=== PATIENT | female | born 1945 | race Caucasian/White ===

== ENCOUNTER 2016-06-20 12:21 | Inpatient (IN) ==
[2016-06-20] MEDS ORDERED: methylPREDNISolone SOD SUC 125 MG/2 ML VIAL IV STA (12:35)
[2016-06-20] MEDS ORDERED: SODIUM CHLORIDE 0.9% 500 ML IV STA (12:35)
[2016-06-20] MEDS ORDERED: PIPERACILLIN/TAZOBACTAM 3,375 MG in SODIUM CHLORIDE 0.9% 100 ML IV STA ×2 (12:35→14:48)
[2016-06-20] MEDS ORDERED: methylPREDNISolone SOD SUC 125 MG/2 ML VIAL ONE (12:42)
[2016-06-20] MEDS ORDERED: PIPERACILLIN/TAZOBACTAM 3,375 MG VIAL IV ONE ×2 (12:42→12:58)
--- NOTE | 2016-06-20 12:42 | Emergency Department Note ---
IGonzalez Meredith, am scribing for, and in the presence of, Aj Hsu MD 12: 37. Aracelis Mathew James D, MD, personally performed the services described in this documentation, ascribed by Ashley Roth in my presence, and it is both accurate and complete 241 . Arrival - Arrival Chief Complaint: Shortness of Breath Stated Complaint: sob ED Nursing Triage Note: Pt states that she has been having SOB onset x 1 week with worsening today - pt family states that she has been out of her inhaler x 4 -5 days - pt was given samples and her insurance would not cover the meds - pt family has been in contact with home health trying to get med that her insurance will pay for Mode of Arrival: Wheelchair Limitations: No Limitations Source: Patient, Family, Old Records Reviewed, RN Notes Reviewed Time Seen by Provider: 06/20/16 12:32 - History of Present Illness HPI Narrative: Pt is a 70 y/o white female reporting to the ED with c/o shortness of breath of breath for the past week which worsened today. Family states pt has been out of her inhaler for 4-5 days because her insurance will not pay for it. Pt confirms a dry cough. She smoker 1 ppd. Pt has a history of HTN, anxiety, depression, substance abuse, TIA, HLD, thyroid disorder, fibromyalgia, asthma, COPD, hemorrhoids, GERD, diverticulitis, DDD, breast cancer, and cervical cancer. Onset (ago): week(s) Date of Last Menstrual Period: hyster Allergies/Adverse Reactions: Allergies Allergy/AdvReac Type Severity Reaction Status Date / Time tramadol [From Ultram] Allergy RASH Verified 12/21/14 15:27 Home Medications: Home Medications Medication Instructions Recorded Confirmed Type Albuterol Sulfate [Albuterol 2 puff INH Q6H PRN 03/17/15 06/20/16 History Inhaler] Fluticasone 50 Mcg Nasal [place] 2 spray BOTH NARES DAILY PRN 03/17/15 06/20/16 History [Flonase Nasal [place]] amLODIPine [Norvasc] 10 mg PO QAM 03/17/15 06/20/16 History HYDROcodone/ACETAMIN 5-325 [[place] 1 tablet PO Q8HR PRN #20 tablet 03/22/1506/20 Rx 5-325] Lisinopril [Prinivil] 10 mg PO QAM 03/22/15 06/20/16 History Albuterol Sulfate [Proair HFA] 2 puff INH Q6H PRN 06/20/16 06/20/16 History Divalproex Sodium [Divalproex 500 mg PO BID 06/20/16 06/20/16 History Sodium ER] Levothyroxine Sodium 150 mcg PO QAM 06/20/16 06/20/16 History Niacin ER [Niaspan] 500 mg PO QAM 06/20/16 06/20/16 History OLANZapine [Olanzapine] 10 mg PO BEDTIME 06/20/16 06/20/16 History Risperidone Microspheres 25 mg IM Q14D 06/20/16 06/20/16 History [Risperdal Consta] Sertraline [Zoloft] 50 mg PO QAM 06/20/16 06/20/16 History Tizanidine HCl [Tizanidine HCl] 4 mg PO BID 06/20/16 06/20/16 History Review of System - Review of System 12 point system: reviewed and no additional remarkable complaints except as stated - Review of System Respiratory: Present: as per HPI, cough, other (SOB) Medical,Surgical,& Family Hx - Medical History Cardio: History of: Hypertension, Cardiovascular Problems Psychological: History of: Anxiety Disorders, Behavior Problems (verbal aggression aeb using profanity towards children and threatening beha), Depression, Psychiatric/Substance Abuse Tx, Psychiatric Problems (depressed mood aeb irritability, sleep disturbance, loss of energy, social) No history of: Violent Behavior Neurology: History of: TIA Endocrine: History of: Dyslipidemia, Thyroid Disorder Rheumatology: History of;: Fibromyalgia Respiratory: History of: Asthma, Bronchitis, COPD, Pneumonia, Respiratory Problems No history of: Obstructive Sleep Apnea, Lung Cancer Gastrointestinal: History of: Diverticulitis/ Diverticulosis, GERD, Hemorrhoids , Polyps, GI Problems Musculoskeletal: History of: Back/Neck Problems (chronic back pain), Degenerative Disk Disease, Musculoskeletal Problems Reproductive: History of: Breast Cancer, Reproductive Cancer (cervical cancer) - Surgical History Abdominal Surgeries: Surgical HX of: Abdominal Surgery, Cholecystectomy Reproductive Surgeries: Surgical HX of;: Breast Surgery, Section, Hysterectomy Orthopedic Surgeries: Surgical HX of;: Orthopedic Surgery (back surgery) - Family History Family History: Reports;: Family Cancer, Family Heart Disease, Family Hypertension - Social History Smoking Status: Current every day smoker (1 pack per day smoker) Have you smoked in the last 12 months: Yes Time spent discussing smoking cessation with patient: 3 to 10 minutes Frequency of Alcohol Use: None Type of Drug Use: None Exam Physical Examination: GENERAL: This is a well-nourished, well-developed white female in no apparent distress. VITAL SIGNS: Temperature: 98.0, Pulse: 103, Respirations: 26, Blood pressure: 149/85, O2 Saturation: 82 HEENT: Head is normocephalic and atraumatic. Pupils are equally round and reactive to light. Extraocular movement are intact. Oropharynx is benign with moist mucous membranes. NECK: Neck is soft and supple without tenderness. There are no masses. There is no lymphadenopathy. LUNGS: Wheezing in all lung imreles. Prolonged expiratory phase. Accessory muscle use. Chest rises symmetrically. There is no chest wall tenderness. CV: Heart is tachycardic and regular rhythm without murmurs, rubs, or gallops. ABDOMEN: Abdomen is soft, non-tender to palpation. There are no abnormal masses palpated. There is no organomegaly. Bowel sounds are present and active. SKIN: Skin is warm and dry. No rash. EXTREMITIES: Patient has full range of motion without tenderness. There is no pedal edema. NEUROLOGIC: Awake, alert, and oriented x4. Cranial nerves II through XII are grossly intact. There are no motorsensory deficits. PSYCHIATRIC: Normal affect. Normal mood. Vital Signs: Vital Signs Temperature 98 F 06/20/16 12:26 Pulse Rate 79 06/20/16 13:01 Respiratory Rate 39 H 06/20/16 13:01 Blood Pressure 159/81 06/20/16 13:00 O2 Sat by Pulse Oximetry 100 06/20/16 13:01 Course - Consultations Consultation #1: Discussed with hospitalist. Patient will be admitted to their service. Time: 13:25 Procedures - ABG Interpretation ABG Interpretation 1 Interpretation: metabolic acidosis - Intubation Time out performed: Yes sedative: Etomidate Mg Given: 20 paralytic: Vecuronium Mg Given: 10 Laryngoscope: fiber optic video scope ET Tube Size: 7.5 ET Tube Uncuffed: No Tube Secured Depth (cm): 22 Tube Secured Location: lips Tube Placement Confirmation: visualized tube passing through cords, equal breath sounds bilaterally, no breath sounds over epigastrium, confirmation detector color change Patient Tolerated Procedure: well Intubation Complications: none Results - Labs CBC & BMP: 06/20/16 12:35 06/20/16 12:34 Lab Results: I have reviewed the patients labs Labs: Laboratory Tests 06/20/16 12:35 WBC 14.0 H RBC 5.10 Hgb 15.2 Hct 44.6 Plt Count 359 Neut % (Auto) 82.9 H Lymph % (Auto) 8.0 L Neut # (Auto) 11.6 H Lymph # (Auto) 1.1 L [place] # (Auto) 1.2 H Laboratory Tests 06/20/16 12:55 ABG pH 7.210 L D ABG pCO2 87.6 H* ABG pO2 189.0 H ABG HCO3 27.1 H ABG Total CO2 31.3 H ABG O2 Saturation 98.8 ABG Base Excess 3.0 H Laboratory Tests 06/20/16 12:35 INR 1.0 PT Patient/Control Mix 10.6 Circ Anticoag PTT 25.9 - EKG EKG results: interpreted by ERMD - Impressions EKG: Normal sinus rhythm with a rate of 90, occasional supraventricular premature complexes, nonspecific ST-T wave changes, normal axis. - Diagnostic Findings Procedure: Chest x-ray: image reviewed by me, report reviewed by me (No evidence of acute pathology. Chest x-ray #2 following intubation shows that the endotracheal tube is in good position above the dorota but will be pulled back 2 cm. The nasogastric tube is present in stomach.) Critical Care Time Critical Care Time: Yes Total Critical Care Time: 60 Attestation: Patient was given hour-long nebulization, IV fluids, IV antibiotics, steroids. The patient had progressively worsening respiratory status and was intubated. Initial vent management orders were written. Disposition Clinical Impression: COPD with exacerbation, Acute bronchitis, Nicotine addiction, Acute and chronic respiratory failure, Acute and chronic respiratory failure Case discussed with: patient, patient's family Disposition: Still a Patient Condition: Critical Time of Disposition: 14:37
[2016-06-20] MEDS ORDERED: ALBUTEROL 2.5 MG/3 ML NEB RESP TX SCH (13:00)
[2016-06-20 13:02] LABS: Basophils % 0.3 % (0.0-0.8); Hematocrit 44.6 VOL% (35.7-47.0); Hemoglobin 15.2 GM/DL (12.0-16.0); Immature Granulocytes % 0.6 %; Immature Granulocytes Absolute 0.09 #; Lymphocytes # 1.1 10*3/uL (1.4-4.0); Mean Corpuscular HGB Conc 34.1 GM/DL (32-36); Mean Corpuscular Hemoglobin 30 PG (27-34); Mean Corpuscular Volume 87.5 FL (87-102); Mean Platelet Volume 10.1 FL (9.6-12.0); Monocytes # 1.2 10*3/uL (0.11-0.8); Monocytes % 8.2 % (1.7-12.7); Neutrophils # 11.6 10*3/uL (1.4-7.4); Neutrophils % 82.9 % (38.7-73.9); Platelet Count 359 T/CUMM (130-400); Red Cell Distribution Width 14.1 % (9.3-17.3)
[2016-06-20 13:04] LABS: ABG HCO3 27.1 MMOL/L (20-26); ABG Oxygen Saturation 98.8 % (95-100); ABG TCO2 31.3 MMOL/L (23-27)
[2016-06-20 13:08] LABS: ABG PCO2 87.6 MM HG (35-48)
[2016-06-20 13:08] LABS: PT Patient Result 10.6 SECS; Partial Thromboplastin Time 25.9 SECS (0-40)
--- NOTE | 2016-06-20 13:10 | XRay Report ---
XR chest 1V portable Indication: Shortness of breath Comparison: None. Technique: Portable AP chest was performed. Findings: Heart size, mediastinal contour, and hilar structures demonstrate no evidence of acute pathology. Lungs are clear. Bones and soft tissues demonstrate no evidence of acute pathology. Impression: 1. No evidence of acute pathology. 06/20/2016 1:07 PM PROCEDURE INTERPRETED AT [facility] DEPARTMENT OF RADIOLOGY Final Report Signed by: Dr. Padilla Calderon
--- NOTE | 2016-06-20 13:31 | EKG Report ---
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
[2016-06-20 13:39] LABS: Albumin 4.3 G/DL (3.4-5.0); Bilirubin,Total 0.4 MG/DL (0.2-1.0); Calcium 9.6 MG/DL (8.5-10.1); Magnesium 2.1 MG/DL (1.8-2.4); Osmolality,Calculated 260.1 MOS/KG (273-304); Total Protein 7.7 G/DL (6.4-8.3); Troponin I Only 0.021 NG/ML (0.00-0.045)
--- NOTE | 2016-06-20 13:53 | Hospitalist History & Physical ---
Assessment and Plan (1) Acute on chronic respiratory failure Status: Acute Assessment and plan: Given the extensive pulmonary history and current respiratory status, the client will be admitted to the critical care setting for the continuation of care. We will continue corticosteriods, goetz culture, continue empiric antibiotics,and start PPI's, and VTE. We will consult pulmonary to assist with the management of this patient. Family at bedside; spoke with them in great detail regarding the patient's current status the possibility of she being placed on mechanical ventilation if her status fails to improve. Current Visit: Yes (2) Hyponatremia Status: Resolved Assessment and plan: Gross hyponatremia noted at the time of admission; Sodium-123. Will slowly replace sodium accordingly and recheck serial sodium levels every 6 hours. Current Visit: No (3) Compensated respiratory acidosis Status: Acute Assessment and plan: May start bi-pap if respiratory status continues to decline. Current Visit: Yes History of Present Illness Chief complaint: shortness of breath History of present illness: This is a poor, unfortunate 70 year-old elderly female that presented to the ED this afternoon with a chief compliant of shortness of breath. She has a rather impressive medical history positive for COPD, [place], depression,nicotine abuse, and hypothyroidism. Apparently, she was being transported to a doctor's appointment when her daughter noticed that she was having difficulty breathing. The daughter also reports continual use of tobacco products despite the know diagnosis of COPD. She also reports that the patient "ran out" of her inhaler about "2 weeks" ago and has not obtained another one. She was promptly evaluated by the ED physician and was started on a prolonged nebulizer treatment in which she failed to improve. She was subsequently intubated for airway protection. She will be admitted to ICU for continuation of care. Home Medications Medication Instructions Recorded Confirmed Type Albuterol Sulfate [Albuterol 2 puff INH Q6H PRN 03/17/15 06/20/16 History Inhaler] Fluticasone 50 Mcg Nasal [place] 2 spray BOTH NARES DAILY PRN 03/17/15 06/20/16 History [Flonase Nasal [place]] amLODIPine [Norvasc] 10 mg PO QAM 03/17/15 06/20/16 History HYDROcodone/ACETAMIN 5-325 [[place] 1 tablet PO Q8HR PRN #20 tablet 03/22/1506/20 Rx 5-325] Lisinopril [Prinivil] 10 mg PO QAM 03/22/15 06/20/16 History Albuterol Sulfate [Proair HFA] 2 puff INH Q6H PRN 06/20/16 06/20/16 History Divalproex Sodium [Divalproex 500 mg PO BID 06/20/16 06/20/16 History Sodium ER] Levothyroxine Sodium 150 mcg PO QAM 06/20/16 06/20/16 History Niacin ER [Niaspan] 500 mg PO QAM 06/20/16 06/20/16 History OLANZapine [Olanzapine] 10 mg PO BEDTIME 06/20/16 06/20/16 History Risperidone Microspheres 25 mg IM Q14D 06/20/16 06/20/16 History [Risperdal Consta] Sertraline [Zoloft] 50 mg PO QAM 06/20/16 06/20/16 History Tizanidine HCl [Tizanidine HCl] 4 mg PO BID 06/20/16 06/20/16 History Allergies Allergy/AdvReac Type Severity Reaction Status Date / Time tramadol [From Ultram] Allergy RASH Verified 12/21/14 15:27 Medical,Surgical,& Family Hx - Medical History Cardio: History of: Hypertension, Cardiovascular Problems Psychological: History of: Anxiety Disorders, Behavior Problems (verbal aggression aeb using profanity towards children and threatening beha), Depression, Psychiatric/Substance Abuse Tx, Psychiatric Problems (depressed mood aeb irritability, sleep disturbance, loss of energy, social) No history of: Violent Behavior Neurology: History of: TIA Endocrine: History of: Dyslipidemia, Thyroid Disorder Rheumatology: History of;: Fibromyalgia Respiratory: History of: Asthma, Bronchitis, COPD, Pneumonia, Respiratory Problems No history of: Obstructive Sleep Apnea, Lung Cancer Gastrointestinal: History of: Diverticulitis/ Diverticulosis, GERD, Hemorrhoids , Polyps, GI Problems Musculoskeletal: History of: Back/Neck Problems (chronic back pain), Degenerative Disk Disease, Musculoskeletal Problems Reproductive: History of: Breast Cancer, Reproductive Cancer (cervical cancer) - Surgical History Abdominal Surgeries: Surgical HX of: Abdominal Surgery, Cholecystectomy Reproductive Surgeries: Surgical HX of;: Breast Surgery, Section, Hysterectomy Orthopedic Surgeries: Surgical HX of;: Orthopedic Surgery (back surgery) - Family History Family History: Reports;: Family Cancer, Family Heart Disease, Family Hypertension - Social History Smoking Status: Current every day smoker (1 pack per day smoker) Frequency of Alcohol Use: None Type of Drug Use: None Marital Status: Single Lives With:: Alone Functional capacity: independent ambulation ROS unobtainable: other (unable to obtain due to respiratory distress) Exam - Constitutional Vitals: Period Temp Pulse Resp BP Sys/Martini Pulse Ox Last 24 Hr 98 F 73-103 18-39 149-153/74-85 82-100 General appearance: severe distress, cachectic, disheveled - Head Head exam: Present: normal inspection, normocephalic, atraumatic - Eye Eye exam: Present: EOMI Pupils: Present: JHONNY, normal accommodation - ENT ENT exam: Present: normal exam - Neck Neck exam: Present: normal inspection. Absent: lymphadenopathy, tenderness, thyromegaly - Respiratory Respiratory exam: Present: accessory muscle use, wheezes - Cardiovascular Cardiovascular exam: Present: tachycardia. Absent: carotid bruit, diastolic murmur, gallop, JVD, rubs, systolic murmur - GI/Abdominal GI/Abdominal exam: Present: normal bowel sounds, soft. Absent: firm, mass - Extremities Exam Extremities exam: Present: normal inspection - Back Exam Back exam: Present: normal inspection - Neurological Exam Neurological exam: Present: altered - Skin Skin exam: Present: dry, pallor Results - Labs CBC & BMP: 06/20/16 12:35 06/20/16 12:34 Lab Results: I have reviewed the past 24 hour labs
[2016-06-20] MEDS ORDERED: VECURONIUM 10 MG VIAL IV ONE (14:11)
[2016-06-20] MEDS ORDERED: ETOMIDATE 20 MG/10 ML VIAL IV ONE ×2 (14:11→14:22)
[2016-06-20] MEDS ORDERED: VECURONIUM 10 MG VIAL IV STA (14:27)
[2016-06-20] MEDS ORDERED: ALBUTEROL 2.5 MG/3 ML NEB RESP TX PRN (14:33)
[2016-06-20] MEDS ORDERED: GLUCAGON 1 MG VIAL IM PRN (14:41)
[2016-06-20] MEDS ORDERED: DEXTROSE 50% 25 GM/50 ML VIAL IV PRN (14:41)
--- NOTE | 2016-06-20 14:44 | XRay Report ---
XR chest 1V portable Indication: Intubation Comparison: Chest x-ray 06/20/2016 Technique: Portable AP chest was performed. Findings: Endotracheal tube is in place which terminates 2 to 3 cm above the dorota. NG tube is present which terminates within the gastric fundus. Prior cholecystectomy is demonstrated. Lung parenchyma demonstrates little change from comparison study. The cardiomediastinal silhouette is stable. Bones and soft tissues appear stable. Impression: 1. No adverse interval change in the chest status post intubation and placement of NG tube. 06/20/2016 2:41 PM PROCEDURE INTERPRETED AT [facility] DEPARTMENT OF RADIOLOGY Final Report Signed by: Dr. Padilla Calderon
[2016-06-20] MEDS ORDERED: PROPOFOL 1,000 MG/100 ML BOTTLE IV ONE (14:47)
[2016-06-20 15:09] LABS: ABG Base Excess 3.4 MMOL/L (-2.5-2.5); ABG HCO3 27.5 MMOL/L (20-26); ABG PCO2 48.5 MM HG (35-48); ABG TCO2 25.6 MMOL/L (23-27)
[2016-06-20] MEDS: PROPOFOL 1,000 MG/100 ML BOTTLE IV SCH ×2 (15:14→23:55)
[2016-06-20] MEDS: SODIUM CHLORIDE 0.9% 1,000 ML IV SCH (15:14)
[2016-06-20] MEDS ORDERED: ALBUTEROL/IPRATROPIUM 3 ML NEB RESP TX PRN (15:28)
[2016-06-20] MEDS: PANTOPRAZOLE 40 MG VIAL IV SCH (15:52)
[2016-06-20] MEDS ORDERED: AMINOPHYLLINE 250 MG in SODIUM CHLORIDE 0.9% 100 ML IV ONE (17:43)
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
[2016-06-20] MEDS: ENOXAPARIN 40 MG/0.4 ML SYRINGE SUBCUT SCH (18:24)
[2016-06-20] MEDS: LEVOFLOXACIN INJ 250 MG in PREMIX 1 EACH IV SCH (18:24)
--- NOTE | 2016-06-20 18:34 | Ultrasound Report ---
US venous doppler LE BI Indication: Possible DVT, SOB, respiratory distress. Comparison: None. Technique: Grayscale, spectral, and color Doppler interrogation of the bilateral lower extremity veins was performed. Augmentation and compression was performed. Findings: Grayscale, color Doppler, and pulsed Doppler evaluation of the veins of the bilateral lower extremity demonstrate no evidence of deep venous thrombosis. IMPRESSION: No evidence of deep venous thrombosis in the bilateral lower extremity. PROCEDURE INTERPRETED AT [facility] DEPARTMENT OF RADIOLOGY Final Report Signed by: Dr Salazar Kwok
[2016-06-20 19:53] LABS: Osmolality,Calculated 268.7 MOS/KG (273-304); Potassium 3.9 MMOL/L (3.5-5.1)
[2016-06-20] MEDS: PIPERACILLIN/TAZOBACTAM 3,375 MG in SODIUM CHLORIDE 0.9% 100 ML IV SCH (20:06)
[2016-06-20] MEDS: methylPREDNISolone SOD SUC 40 MG/1 ML VIAL IV SCH (20:06)
[2016-06-20] MEDS ORDERED: DIVALPROEX ER 500 MG TABLET PO SCH (21:00)
[2016-06-20] MEDS: VALPROIC ACID 250 MG/5 ML UDCUP PO SCH (21:19)
[2016-06-20] MEDS: MONTELUKAST 10 MG TABLET PO SCH (21:19)
[2016-06-20] MEDS: OLANZapine 5 MG TABLET PO SCH (21:19)
[2016-06-20] MEDS: AMINOPHYLLINE 500 MG in SODIUM CHLORIDE 0.9% 480 ML IV SCH (22:29)
[2016-06-21 00:34] LABS: Basophils % 0.1 % (0.0-0.8); Immature Granulocytes % 0.4 %; Immature Granulocytes Absolute 0.03 #; Lymphocytes # 0.8 10*3/uL (1.4-4.0); Mean Corpuscular HGB Conc 34.2 GM/DL (32-36); Mean Corpuscular Hemoglobin 29 PG (27-34); Mean Corpuscular Volume 85.2 FL (87-102); Mean Platelet Volume 10.7 FL (9.6-12.0); Monocytes # 0.5 10*3/uL (0.11-0.8); Monocytes % 6.5 % (1.7-12.7); Neutrophils # 6.9 10*3/uL (1.4-7.4); Platelet Count 198 T/CUMM (130-400); Red Blood Count 4.46 MC/CUMM (3.8-5.5); Red Cell Distribution Width 13.9 % (9.3-17.3); White Blood Count 8.3 T/CUMM (4-12)
[2016-06-21 00:49] LABS: Calcium 8.3 MG/DL (8.5-10.1); Osmolality,Calculated 277.8 MOS/KG (273-304); Potassium 3.5 MMOL/L (3.5-5.1)
[2016-06-21 03:41] LABS: ABG Base Excess 6.3 MMOL/L (-2.5-2.5); ABG HCO3 29.4 MMOL/L (20-26); ABG Oxygen Saturation 99.1 % (95-100); ABG PCO2 37.2 MM HG (35-48); ABG PH 7.516 (7.35-7.45); ABG PO2 197.3 MM HG (80-95); ABG TCO2 30.6 MMOL/L (23-27); Allen Test Positive; Pt O2 Delivery Device Ventilator
[2016-06-21 04:17] LABS: Alanine Aminotransferase 14 U/L (13-56); Albumin 3.1 G/DL (3.4-5.0); Alkaline Phosphatase 44 U/L (45-117); Aspartate Amino Transferase 12 U/L (0-37); Bilirubin,Total < 0.39 MG/DL (0.2-1.0); Blood Urea Nitrogen 21 MG/DL (7-18); Calcium 8.6 MG/DL (8.5-10.1); Cholesterol 167 MG/DL (50-200); Glucose 113 MG/DL (74-106); HDL Cholesterol 84 MG/DL (40-60); Magnesium 1.8 MG/DL (1.8-2.4); Osmolality,Calculated 271.2 MOS/KG (273-304); Potassium 3.4 MMOL/L (3.5-5.1); Risk Ratio 1.99; Sodium 134 MMOL/L (136-145); Total Protein 5.6 G/DL (6.4-8.3); Triglycerides 93 MG/DL (2-150); Troponin I Only < 0.015 NG/ML (0.00-0.045); VLDL CHOLESTEROL 18.6 MG/DL
[2016-06-21 04:37] LABS: Calcium 8.6 MG/DL (8.5-10.1); Osmolality,Calculated 269.4 MOS/KG (273-304); Potassium 3.5 MMOL/L (3.5-5.1)
[2016-06-21] MEDS: methylPREDNISolone SOD SUC 40 MG/1 ML VIAL IV SCH ×3 (04:59→20:10)
[2016-06-21] MEDS: PIPERACILLIN/TAZOBACTAM 3,375 MG in SODIUM CHLORIDE 0.9% 100 ML IV SCH ×3 (05:00→20:10)
[2016-06-21] MEDS: SODIUM CHLORIDE 0.9% 1,000 ML IV SCH ×2 (05:08→21:51)
[2016-06-21 07:42] LABS: Calcium 8.5 MG/DL (8.5-10.1); Osmolality,Calculated 276.8 MOS/KG (273-304); Potassium 3.6 MMOL/L (3.5-5.1)
--- NOTE | 2016-06-21 08:03 | XRay Report ---
Referring Physician: DAVID Powell Exam: XR chest 1V portable Date: June 21, 2016 at 3:17 AM Reason: Shortness of breath Comparison: Chest one view portable June 20, 2016 Findings: An endotracheal tube and feeding tube are again in place. The cardiac silhouette is normal in size. Emphysema is suspected, and there is minimal atelectasis or scarring at the lung bases. No pneumothorax or pleural effusion is identified. No acute osseous process is seen. Impression: There has been no significant change. PROCEDURE INTERPRETED AT [facility] DEPARTMENT OF RADIOLOGY Final Report Signed by: Dr. Roger Arriola
[2016-06-21] MEDS: amLODIPine 10 MG TABLET PO SCH (08:11)
[2016-06-21] MEDS: MONTELUKAST 10 MG TABLET PO SCH ×2 (08:12→21:40)
[2016-06-21] MEDS: VALPROIC ACID 250 MG/5 ML UDCUP PO SCH ×2 (08:12→21:40)
[2016-06-21] MEDS: LEVOTHYROXINE 100 MCG VIAL IV SCH (08:29)
[2016-06-21] MEDS: PROPOFOL 1,000 MG/100 ML BOTTLE IV SCH ×2 (08:38→21:49)
--- NOTE | 2016-06-21 09:23 | Pulmonology Progress Note ---
Pulmonary - PN: Subj Interval history: This is a 70-year-old white female. I saw her in pulmonary consultation 2016. My impressions were 1. Acute respiratory failure requiring intubation mechanical ventilation 2. Severe COPD with acute exacerbation including infection, sputum retention and wheezing 3. Probable bilateral lower lung pneumonia 4. Significant tobacco abuse 5. Hypothyroid 6. Hyponatremia. 7. See past history 06/21/2016. Today's chest x-ray is better. Heart size is normal. Pulmonary arteries appear to be slightly enlarged. No hilar adenopathy. Mediastinum is normal. Endotracheal tube is in good position. The right lower lung and left lower lung infiltrates are improved. Also on chest exam she is much better today she has a lot less wheezing a lot less congestion. This patient is a chronic smoker with a long history of chronic sputum production and I suspect based on her findings and her presentation has good bit of retained secretions. Last night I discussed fiberoptic bronchoscopy with the family and they were agreeable. I will plan to bronchoscope her tomorrow if she can maintain her improvement so far no positive cultures. Patient's on IV Aminophyllin and her level is 5.4 and she is getting no response at this level so I will not increase the dosage. Potassium is low and I started her on potassium replacement protocol. Creatinine is 0.70 with a BUN of 23 natruretic peptide was 112 admit TSH was normal follow-up is elevated. Plan. 1. Deep venous thrombophlebitis prevention protocol 2. Proton pump inhibitor protocol 3. Mechanical ventilation weaning protocol 4. Physical therapy while on ventilator protocol 5. Doppler venograms of lower extremities 6. Daily chest x-ray, ABGs and lab 7. Sputum for Gram stain culture and sensitivity 8. Cold agglutinins. Reported 06/21/2016 as negative. 9. Legionella titer. 10. agree with steroids and Unasyn. Add Levaquin. 11. IV Aminophyllin. Daily theophylline level. 12. Singulair 10 mg daily 13. Fluids. 14. See orders 15. 06/21/2016. Potassium replacement protocol. Fiberoptic bronchoscopy in the morning. See my note above Exam (Progress Note) - Constitutional Vitals: Period Temp Pulse Resp BP Sys/Martini Pulse Ox Last 24 Hr 97.1 F-98.7 F 73-104 13-43 99-172/53-98 94-100 Results - Labs CBC & BMP: 06/21/16 00:12 06/21/16 07:05
--- NOTE | 2016-06-21 11:29 | Hospitalist Progress Note ---
Assessment and Plan (1) Acute on chronic respiratory failure Status: Acute Assessment and plan: 1)resp failure- stable on vent with improved ventilation and much better air movement than pre-intubation. Still with sig wheezes throughout. On antibiotics , nebs, steroids, aminophylline. Seemsneurologically appropriate so hopefully that won't be a barrier to extubation. She does have extensive psych history and her meds have been continued. 2)HTN- improved, on her home meds. 3)hyponatremia- improved with hydration and steroids. Her spot cortisol was 70 yesterday, after she had received solumedrol. TSH was normal. Urine osm inappropriately high on admission when serum osm low- consistent with SIADH. 4)nutrition- tube feeds to start today. Current Visit: Yes (2) Hypokalemia Status: Resolved Current Visit: No (3) COPD with exacerbation Status: Acute Current Visit: Yes (4) Nicotine addiction Status: Acute Current Visit: Yes Hospitalist: Subjective Interval history: Mrs Mcgill rested comfortably on the vent. She is cooperative and follows commands when sedation lightened. No events. Her exam is much improved from yesterday. Exam - Constitutional Vitals: Period Temp Pulse Resp BP Sys/Martini Pulse Ox Last 24 Hr 97.1 F-98.7 F 73-104 13-43 99-172/53-98 94-100 General appearance: normal weight, no acute distress (sedated) - Eye Eye exam: Present: EOMI. Absent: scleral icterus - Respiratory Respiratory exam: Present: wheezes (loud exp wheezes thorughout with much improved air movement compared to exam in ER yesterday) - Cardiovascular Cardiovascular exam: Present: regular rate and rhythm - GI/Abdominal GI/Abdominal exam: Present: normal bowel sounds, soft. Absent: tenderness - Extremities Exam Extremities exam: Absent: edema - Skin Skin exam: Present: warm, dry Results - Labs CBC & BMP: 06/21/16 00:12 06/21/16 07:05 Lab Results: I have reviewed the past 24 hour labs
[2016-06-21] MEDS: LISINOPRIL 10 MG TABLET PO SCH (11:37)
[2016-06-21 12:06] LABS: Calcium 8.4 MG/DL (8.5-10.1); Magnesium 1.9 MG/DL (1.8-2.4); Osmolality,Calculated 275.8 MOS/KG (273-304); Potassium 3.8 MMOL/L (3.5-5.1)
[2016-06-21] MEDS ORDERED: GLUCAGON 1 MG VIAL IM PRN (14:54)
[2016-06-21] MEDS ORDERED: DEXTROSE 50% 25 GM/50 ML VIAL IV PRN (14:54)
[2016-06-21] MEDS: PANTOPRAZOLE 40 MG VIAL IV SCH (15:47)
[2016-06-21] MEDS: INSULIN REGULAR 100 UNIT/ML SUBCUT SCH (17:49)
[2016-06-21] MEDS: ENOXAPARIN 40 MG/0.4 ML SYRINGE SUBCUT SCH (17:54)
[2016-06-21] MEDS: LEVOFLOXACIN INJ 250 MG in PREMIX 1 EACH IV SCH (17:55)
[2016-06-21] MEDS: OLANZapine 5 MG TABLET PO SCH (21:40)
[2016-06-22] MEDS: INSULIN REGULAR 100 UNIT/ML SUBCUT SCH ×5 (00:27→18:40)
[2016-06-22 02:56] LABS: Allen Test Positive; Pt O2 Delivery Device Ventilator
[2016-06-22 03:01] LABS: ABG Base Excess 2.7 MMOL/L (-2.5-2.5); ABG PCO2 31.3 MM HG (35-48); ABG PH 7.521 (7.35-7.45); ABG PO2 211.9 MM HG (80-95)
[2016-06-22] MEDS: methylPREDNISolone SOD SUC 40 MG/1 ML VIAL IV SCH ×3 (03:54→20:46)
[2016-06-22] MEDS: PIPERACILLIN/TAZOBACTAM 3,375 MG in SODIUM CHLORIDE 0.9% 100 ML IV SCH ×3 (03:56→20:46)
[2016-06-22 05:09] LABS: Basophils % 0.1 % (0.0-0.8); Hematocrit 34.8 VOL% (35.7-47.0); Immature Granulocytes % 0.5 %; Immature Granulocytes Absolute 0.05 #; Lymphocytes % 10.6 % (21.3-54.2); Mean Corpuscular HGB Conc 34.5 GM/DL (32-36); Mean Corpuscular Hemoglobin 30 PG (27-34); Mean Corpuscular Volume 85.7 FL (87-102); Mean Platelet Volume 10.7 FL (9.6-12.0); Monocytes # 1.3 10*3/uL (0.11-0.8); Monocytes % 14.5 % (1.7-12.7); Neutrophils # 6.8 10*3/uL (1.4-7.4); Neutrophils % 74.3 % (38.7-73.9); Platelet Count 264 T/CUMM (130-400); Red Blood Count 4.06 MC/CUMM (3.8-5.5); Red Cell Distribution Width 14.5 % (9.3-17.3); White Blood Count 9.2 T/CUMM (4-12)
[2016-06-22 05:19] LABS: PT Patient Result 11.1 SECS; Partial Thromboplastin Time 29.2 SECS (0-40)
[2016-06-22] MEDS: SODIUM CHLORIDE 0.9% 1,000 ML IV SCH ×4 (05:49→23:32)
[2016-06-22 06:02] LABS: Calcium 8.1 MG/DL (8.5-10.1); Osmolality,Calculated 289.1 MOS/KG (273-304); Potassium 3.4 MMOL/L (3.5-5.1)
[2016-06-22 06:06] LABS: Phosphorous 4.5 MG/DL (2.5-4.9); Prealbumin 16.7 MG/DL (20-40)
[2016-06-22] MEDS: LEVOTHYROXINE 100 MCG VIAL IV SCH (06:17)
--- NOTE | 2016-06-22 07:15 | XRay Report ---
Portable chest Date: 06/22/2016 Clinical history: Ventilator management Comparison: 06/21/2016 Technique: Portable AP sitting chest Findings: The heart is normal in size. The lungs remain overexpanded with decreased parenchymal findings. Stable supportive devices and mediastinum. No acute osseous findings. 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 Supportive devices remain in satisfactory position. PROCEDURE INTERPRETED AT [facility] DEPARTMENT OF RADIOLOGY Final Report Signed by: Dr. Nicole Phillips
[2016-06-22] MEDS: AMINOPHYLLINE 500 MG in SODIUM CHLORIDE 0.9% 480 ML IV SCH ×3 (07:47→18:36)
[2016-06-22] MEDS: PROPOFOL 1,000 MG/100 ML BOTTLE IV SCH ×2 (07:49→15:18)
[2016-06-22] MEDS ORDERED: POTASSIUM CHLORIDE 20 MEQ TABLET PO ONE (08:15)
--- NOTE | 2016-06-22 08:15 | Hospitalist Progress Note ---
Assessment and Plan (1) Acute on chronic respiratory failure Status: Acute Assessment and plan: 1)acute on chronic resp failure- this morning her exam is much better with no wheezing and good air movement. She is on levaquin, Decrease IV solumedrol tomorrow, cont nebs. Bronch this morning. 2)HTN- controlled 3)hyponatremia- resolved. 4)nutrition- tolerating tube feeds 5)hypokalemia- replace today and recheck in am. 6)psych- she has history of mental illness. I continued her olanzapine, holding her depot risperdal since we don't know when she got her last dose. calm on the vent at this point. some baseline dementia per her daughter. Current Visit: Yes (2) COPD with exacerbation Status: Acute Current Visit: Yes (3) Nicotine addiction Status: Acute Current Visit: Yes Hospitalist: Subjective Interval history: Mrs Mcgill has remained stable on vent overnight. She is going to have a bronch this morning per nursing report. She did CPAP yesterday for 2hour stretches. She continues to respond to voice and follow commands. Exam - Constitutional Vitals: Period Temp Pulse Resp BP Sys/Martini Pulse Ox Last 24 Hr 97.4 F-98.4 F 55-95 14-23 82-165/57-91 99-100 General appearance: normal weight, no acute distress - Head Head exam: Present: normocephalic, atraumatic - Eye Eye exam: Present: EOMI. Absent: scleral icterus - Respiratory Respiratory exam: Present: clear to auscultation bilaterally (no wheezing this morning, imroved air movement) - Cardiovascular Cardiovascular exam: Present: regular rate and rhythm - GI/Abdominal GI/Abdominal exam: Present: normal bowel sounds, soft. Absent: tenderness - Extremities Exam Extremities exam: Absent: edema Results - Labs CBC & BMP: 06/22/16 04:18 06/22/16 04:18 Lab Results: I have reviewed the past 24 hour labs
--- NOTE | 2016-06-22 09:07 | Event Note ---
In hospital diagnostic and therapeutic fiberoptic bronchoscopy with bilateral ( right upper lung, right middle lung, right lower lung, left upper lung and left lower lung) bronchial/alveolar lavage for cytology, Gram stain, bacterial cultures, AFB stains and culture, fungal stains and culture. This is a 70-year-old white female with COPD, acute respiratory failure requiring intubation mechanical ventilation and right lower lung pneumonia. She has retained secretions. Her cough is ineffective. For these reasons she is evaluated with fiberoptic bronchoscopy. Endotracheal tube is in good position. Distal trachea was normal this area was occluded by thick tenacious secretions. The dorota was sharp. Right mainstem bronchus was occluded with thick tenacious secretions. These extended into every segment of the right upper lung, the right middle lung in the right lower lung. The suction channel had to be repeated pedal he cleaned in order to clear the secretions. Lavages from the bronchi and from the alveoli were obtained and specimens were submitted. There were areas of underlying erosive friable bronchitis and the large and small airways showed a good bit of collapsibility compatible with COPD. The left mainstem bronchus was occluded with thick tenacious secretions which occluded the bronchoscope which required multiple channel cleanings. The secretions extending into every segment of the left upper lung and left lower lung. These were removed from the bronchi and the patient had alveolar lavages. The specimens were submitted for for additional studies. See above. There were areas of eroded friable bronchitis. The collection apparatus contain a good bit of thick tenacious secretions and there were multiple yellow bronchial casts. The findings were discussed with the patient's daughter. Patient tolerated procedure well Impression. 1. Acute respiratory failure requiring intubation mechanical ventilation. 2. Ineffective cough 3. Retained secretions 4. COPD with collapsible large and small airways 5. Bilateral erosive friable bronchitis 6. Acute right lower lung pneumonia. Most likely bacterial. 7. See above Plan. 1. Discuss with daughter 2. Follow-up chest x-ray 3. Check bronchoscopy
[2016-06-22] MEDS: VALPROIC ACID 250 MG/5 ML UDCUP PO SCH ×2 (10:16→20:46)
[2016-06-22] MEDS: amLODIPine 10 MG TABLET PO SCH (10:17)
[2016-06-22] MEDS: LISINOPRIL 10 MG TABLET PO SCH (10:17)
[2016-06-22] MEDS: MONTELUKAST 10 MG TABLET PO SCH ×2 (10:18→20:46)
--- NOTE | 2016-06-22 10:40 | Pulmonology Progress Note ---
Pulmonary - PN: Subj Interval history: This is a 70-year-old white female. I saw her in pulmonary consultation 2016. My impressions were 1. Acute respiratory failure requiring intubation mechanical ventilation 2. Severe COPD with acute exacerbation including infection, sputum retention and wheezing 3. Probable bilateral lower lung pneumonia 4. Significant tobacco abuse 5. Hypothyroid 6. Hyponatremia. 7. See past history 06/21/2016. Today's chest x-ray is better. Heart size is normal. Pulmonary arteries appear to be slightly enlarged. No hilar adenopathy. Mediastinum is normal. Endotracheal tube is in good position. The right lower lung and left lower lung infiltrates are improved. Also on chest exam she is much better today she has a lot less wheezing a lot less congestion. This patient is a chronic smoker with a long history of chronic sputum production and I suspect based on her findings and her presentation has good bit of retained secretions. Last night I discussed fiberoptic bronchoscopy with the family and they were agreeable. I will plan to bronchoscope her tomorrow if she can maintain her improvement so far no positive cultures. Patient's on IV Aminophyllin and her level is 5.4 and she is getting no response at this level so I will not increase the dosage. Potassium is low and I started her on potassium replacement protocol. Creatinine is 0.70 with a BUN of 23 natruretic peptide was 112 admit TSH was normal follow-up is elevated. 06/22/2016. This patient had a fiberoptic bronchoscopy earlier today. See the report. She was full of thick tenacious secretions that involved every lobe of her lungs. Sputum was so thick and tenacious required repeated withdrawal of the scope to clean the channels for suctioning. Chest x-ray shows a resolving right lower lung infiltrate. There are no positive cultures. ABGs are slowly improving. Potassium remains low at 3.4. CBC is stable. Theophylline level was 3.5. Patient's on stage III to weaning protocol. Findings and plans were discussed with the patient's daughter today. Dalton Dean nurse practitioner was present. Physical exam. Vital signs. See below Neurologic. Patient moves all fours. She can be aroused. Chest. Coarse large airway congestion. Bibasilar inspiratory squeaks. Heart. No gallop Abdomen. Nontender. Positive bowel sounds Extremities. Nothing to suggest deep venous thrombophlebitis Neck. Symmetrical. No masses. No meningismus. Lymphatics. No submandibular cervical supraclavicular or epitrochlear adenopathy. Arterial. Carotids are decreased. Upper extremity pulses are palpable. Lower extremity pulses are nonpalpable. No evidence of lower extremity ischemia Venous. Neck upper and lower extremities are normal except for mild chronic venous stasis changes over both lower extremities. The remainder of the exam is noncontributory Plan. 1. Deep venous thrombophlebitis prevention protocol 2. Proton pump inhibitor protocol 3. Mechanical ventilation weaning protocol 4. Physical therapy while on ventilator protocol 5. Doppler venograms of lower extremities 6. Daily chest x-ray, ABGs and lab 7. Sputum for Gram stain culture and sensitivity 8. Cold agglutinins. Reported 06/21/2016 as negative. 9. Legionella titer. 10. agree with steroids and Unasyn. Add Levaquin. 11. IV Aminophyllin. Daily theophylline level. 12. Singulair 10 mg daily 13. Fluids. 14. See orders 15. 06/21/2016. Potassium replacement protocol. Fiberoptic bronchoscopy in the morning. See my note above 16. 06/22/2016. Fiberoptic bronchoscopy. Check results. Stage II weaning protocol. Will need repeat fiberoptic bronchoscopy on 06/25/2016. Daughter is agreeable. Exam (Progress Note) - Constitutional Vitals: Period Temp Pulse Resp BP Sys/Martini Pulse Ox Last 24 Hr 97.4 F-98.4 F 55-101 14-23 82-151/57-102 99-100 Results - Labs CBC & BMP: 06/22/16 04:18 06/22/16 04:18
[2016-06-22] MEDS: PANTOPRAZOLE 40 MG VIAL IV SCH (15:17)
[2016-06-22] MEDS: LEVOFLOXACIN INJ 250 MG in PREMIX 1 EACH IV SCH (18:41)
[2016-06-22] MEDS: ENOXAPARIN 40 MG/0.4 ML SYRINGE SUBCUT SCH (18:41)
[2016-06-22] MEDS: OLANZapine 5 MG TABLET PO SCH (20:47)
[2016-06-23] MEDS: INSULIN REGULAR 100 UNIT/ML SUBCUT SCH ×4 (00:13→18:39)
[2016-06-23 03:36] LABS: ABG HCO3 24.4 MMOL/L (20-26); ABG Oxygen Saturation 98.6 % (95-100); ABG PCO2 33.1 MM HG (35-48); ABG PH 7.454 (7.35-7.45); ABG TCO2 20.2 MMOL/L (23-27)
[2016-06-23] MEDS: methylPREDNISolone SOD SUC 40 MG/1 ML VIAL IV SCH ×3 (04:33→20:42)
[2016-06-23] MEDS: PIPERACILLIN/TAZOBACTAM 3,375 MG in SODIUM CHLORIDE 0.9% 100 ML IV SCH ×3 (04:33→20:42)
[2016-06-23 05:25] LABS: Calcium 7.8 MG/DL (8.5-10.1); Potassium 4.7 MMOL/L (3.5-5.1)
[2016-06-23] MEDS: LEVOTHYROXINE 100 MCG VIAL IV SCH (06:29)
[2016-06-23] MEDS: SODIUM CHLORIDE 0.9% 1,000 ML IV SCH (06:29)
[2016-06-23] MEDS: PROPOFOL 1,000 MG/100 ML BOTTLE IV SCH ×3 (06:39→23:16)
--- NOTE | 2016-06-23 07:26 | Hospitalist Progress Note ---
Assessment and Plan - Time spent with patient Time spent with patient: Less than 30 minutes (1) Acute and chronic respiratory failure Status: Acute Assessment and plan: Patient remains sedated on a ventilator for acute and chronic respiratory failure. Pulmonary continues to manage and wane. She underwent diagnostic and therapeutic bronchoscopy yesterday by Dr. Love, please see his report. Current Visit: No (2) COPD (chronic obstructive pulmonary disease) Status: Acute Assessment and plan: Continuing ventilatory support, empiric antibiotic therapy, IV corticosteroids, nebulizer therapy Current Visit: No Qualifiers: COPD type: COPD with acute exacerbation Qualified Code(s): J44.1 - Chronic obstructive pulmonary disease with (acute) exacerbation (3) Hypothyroidism Status: Chronic Assessment and plan: Stable. Current Visit: No Hospitalist: Subjective Interval history: Patient remains sedated on a ventilator. No new issues overnight per nursing. Patient is tolerating tube feedings. She has a Telles catheter in place. Continuing to wean per pulmonary protocol. Exam - Constitutional Vitals: Period Temp Pulse Resp BP Sys/Martini Pulse Ox Last 24 Hr 96.7 F-98.1 F 50-101 11-26 109-158/66-102 96-100 General appearance: no acute distress - Head Head exam: Present: normocephalic, atraumatic - Eye Eye exam: Present: EOMI Pupils: Present: JHONNY - ENT ENT exam: Present: other (ETT and OGT tubes in place) - Neck Neck exam: Present: normal inspection - Respiratory Respiratory exam: Present: clear to auscultation bilaterally. Absent: rales, rhonchi, wheezes - Cardiovascular Cardiovascular exam: Present: regular rate and rhythm. Absent: tachycardia - GI/Abdominal GI/Abdominal exam: Present: normal bowel sounds, soft. Absent: distended, tenderness, rebound - Extremities Exam Extremities exam: Absent: calf tenderness, edema - Neurological Exam Neurological exam: Present: other (Sedated on vent, withdraws extremities to tactile stimuli) - Skin Skin exam: Present: warm, dry. Absent: rash Results - Labs CBC & BMP: 06/22/16 04:18 06/23/16 04:25 Lab Results: I have reviewed the past 24 hour labs - Diagnostic Findings Procedure: Chest x-ray: report reviewed by me
--- NOTE | 2016-06-23 08:13 | Pulmonology Progress Note ---
Pulmonary - PN: Subj Interval history: This is a 70-year-old white female. I saw her in pulmonary consultation 2016. My impressions were 1. Acute respiratory failure requiring intubation mechanical ventilation 2. Severe COPD with acute exacerbation including infection, sputum retention and wheezing 3. Probable bilateral lower lung pneumonia 4. Significant tobacco abuse 5. Hypothyroid 6. Hyponatremia. 7. See past history 06/21/2016. Today's chest x-ray is better. Heart size is normal. Pulmonary arteries appear to be slightly enlarged. No hilar adenopathy. Mediastinum is normal. Endotracheal tube is in good position. The right lower lung and left lower lung infiltrates are improved. Also on chest exam she is much better today she has a lot less wheezing a lot less congestion. This patient is a chronic smoker with a long history of chronic sputum production and I suspect based on her findings and her presentation has good bit of retained secretions. Last night I discussed fiberoptic bronchoscopy with the family and they were agreeable. I will plan to bronchoscope her tomorrow if she can maintain her improvement so far no positive cultures. Patient's on IV Aminophyllin and her level is 5.4 and she is getting no response at this level so I will not increase the dosage. Potassium is low and I started her on potassium replacement protocol. Creatinine is 0.70 with a BUN of 23 natruretic peptide was 112 admit TSH was normal follow-up is elevated. 06/22/2016. This patient had a fiberoptic bronchoscopy earlier today. See the report. She was full of thick tenacious secretions that involved every lobe of her lungs. Sputum was so thick and tenacious required repeated withdrawal of the scope to clean the channels for suctioning. Chest x-ray shows a resolving right lower lung infiltrate. There are no positive cultures. ABGs are slowly improving. Potassium remains low at 3.4. CBC is stable. Theophylline level was 3.5. Patient's on stage III to weaning protocol. Findings and plans were discussed with the patient's daughter today. Dalton Dean nurse practitioner was present. 06/23/2016. This patient's chest sounds much better following a fiberoptic bronchoscopy done 06/22/2016. Chest x-ray shows small heart. Enlarged pulmonary arteries. Hyperinflated lungs. Small residual right lower lung infiltrate with some minor associated atelectasis and a tiny amount of atelectasis at the left lateral basilar segment. ABGs on FiO2 of 50% showed pH 7.45. PCO2 is 33, PO2 is 119 and bicarb is 24. Electrolytes are normal. Creatinine is dropped to 0.40 with a BUN of 30. Theophylline level is 11.4. There are no positive cultures. Physical exam. Vital signs. See below Neurologic. Patient moves all fours. She can be aroused and she appears more alert today. Chest. Coarse large airway congestion. Bibasilar inspiratory squeaks. Heart. No gallop Abdomen. Nontender. Positive bowel sounds Extremities. Nothing to suggest deep venous thrombophlebitis Neck. Symmetrical. No masses. No meningismus. Lymphatics. No submandibular cervical supraclavicular or epitrochlear adenopathy. Arterial. Carotids are decreased. Upper extremity pulses are palpable. Lower extremity pulses are nonpalpable. No evidence of lower extremity ischemia Venous. Neck upper and lower extremities are normal except for mild chronic venous stasis changes over both lower extremities. The remainder of the exam is noncontributory Plan. 1. Deep venous thrombophlebitis prevention protocol 2. Proton pump inhibitor protocol 3. Mechanical ventilation weaning protocol 4. Physical therapy while on ventilator protocol 5. Doppler venograms of lower extremities 6. Daily chest x-ray, ABGs and lab 7. Sputum for Gram stain culture and sensitivity 8. Cold agglutinins. Reported 06/21/2016 as negative. 9. Legionella titer. 10. agree with steroids and Unasyn. Add Levaquin. 11. IV Aminophyllin. Daily theophylline level. 12. Singulair 10 mg daily 13. Fluids. 14. See orders 15. 06/21/2016. Potassium replacement protocol. Fiberoptic bronchoscopy in the morning. See my note above 16. 06/22/2016. Fiberoptic bronchoscopy. Check results. Stage II weaning protocol. Will need repeat fiberoptic bronchoscopy on 06/25/2016. Daughter is agreeable. 17. 06/23/2016. Continue present therapy including present weaning protocol. Probable repeat fiberoptic bronchoscopy on 06/25/2016 Exam (Progress Note) - Constitutional Vitals: Period Temp Pulse Resp BP Sys/Martini Pulse Ox Last 24 Hr 96.7 F-98.1 F 55-101 11- 109-158/66-102 96-100 Results - Labs CBC & BMP: 06/22/16 04:18 06/23/16 04:25
[2016-06-23] MEDS: amLODIPine 10 MG TABLET PO SCH (08:57)
[2016-06-23] MEDS: VALPROIC ACID 250 MG/5 ML UDCUP PO SCH ×2 (08:57→20:42)
[2016-06-23] MEDS: MONTELUKAST 10 MG TABLET PO SCH ×2 (08:57→20:43)
[2016-06-23] MEDS: LISINOPRIL 10 MG TABLET PO SCH (08:58)
[2016-06-23] MEDS: NICOTINE 21 MG/24 HR PATCH TRANSDERM PRN (08:58)
[2016-06-23] MEDS ORDERED: INFLUENZA VIRUS VACCINE 0.5 ML SYRINGE IM ONE (09:00)
[2016-06-23] MEDS: SODIUM CHLORIDE 0.45% 1,000 ML IV SCH ×3 (09:00→23:51)
--- NOTE | 2016-06-23 10:12 | XRay Report ---
Single view the chest. Indication: Ventilated patient. Comparison: June 22, 2016. Heart is normal in size. The lung mireles are hyperexpanded suggestive of COPD. No consolidation, pneumothorax, or pleural effusion. An endotracheal tube and nasogastric tube remain in satisfactory position. Impression: No acute abnormality. PROCEDURE INTERPRETED AT [facility] DEPARTMENT OF RADIOLOGY Final Report Signed by: Dr. Renu Stack
[2016-06-23] MEDS: PANTOPRAZOLE 40 MG VIAL IV SCH (15:50)
[2016-06-23] MEDS: LEVOFLOXACIN INJ 250 MG in PREMIX 1 EACH IV SCH (18:48)
[2016-06-23] MEDS: ENOXAPARIN 40 MG/0.4 ML SYRINGE SUBCUT SCH (18:49)
[2016-06-23] MEDS: AMINOPHYLLINE 500 MG in SODIUM CHLORIDE 0.9% 480 ML IV SCH (18:49)
[2016-06-23] MEDS: OLANZapine 5 MG TABLET PO SCH (20:42)
[2016-06-24] MEDS: INSULIN REGULAR 100 UNIT/ML SUBCUT SCH ×4 (00:52→18:30)
[2016-06-24] MEDS: PIPERACILLIN/TAZOBACTAM 3,375 MG in SODIUM CHLORIDE 0.9% 100 ML IV SCH ×3 (04:17→20:42)
[2016-06-24] MEDS: methylPREDNISolone SOD SUC 40 MG/1 ML VIAL IV SCH ×3 (04:17→20:42)
[2016-06-24 04:53] LABS: Hematocrit 37.8 VOL% (35.7-47.0); Hemoglobin 12.8 GM/DL (12.0-16.0); Immature Granulocytes % 0.7 %; Immature Granulocytes Absolute 0.06 #; Lymphocytes # 1.2 10*3/uL (1.4-4.0); Lymphocytes % 15.2 % (21.3-54.2); Mean Corpuscular HGB Conc 33.9 GM/DL (32-36); Mean Corpuscular Hemoglobin 29 PG (27-34); Mean Corpuscular Volume 85.3 FL (87-102); Mean Platelet Volume 10.4 FL (9.6-12.0); Monocytes # 0.8 10*3/uL (0.11-0.8); Monocytes % 9.4 % (1.7-12.7); Neutrophils % 74.7 % (38.7-73.9); Platelet Count 271 T/CUMM (130-400); Red Blood Count 4.43 MC/CUMM (3.8-5.5); Red Cell Distribution Width 14.6 % (9.3-17.3)
[2016-06-24 04:59] LABS: ABG Base Excess 0.6 MMOL/L (-2.5-2.5); ABG HCO3 23.6 MMOL/L (20-26); ABG Oxygen Saturation 98.2 % (95-100); ABG PCO2 33.1 MM HG (35-48); ABG PH 7.471 (7.35-7.45); ABG PO2 121.7 MM HG (80-95); ABG TCO2 24.6 MMOL/L (23-27); Pt O2 Delivery Device Ventilator
[2016-06-24 05:25] LABS: Calcium 8.2 MG/DL (8.5-10.1); Osmolality,Calculated 288.1 MOS/KG (273-304); Potassium 4.7 MMOL/L (3.5-5.1)
[2016-06-24] MEDS: LEVOTHYROXINE 100 MCG VIAL IV SCH (06:22)
--- NOTE | 2016-06-24 07:24 | Hospitalist Progress Note ---
Assessment and Plan - Time spent with patient Time spent with patient: Less than 30 minutes (1) Acute and chronic respiratory failure Status: Acute Assessment and plan: Patient remains sedated on a ventilator for acute and chronic respiratory failure. Pulmonary continues to manage and wean. She underwent diagnostic and therapeutic bronchoscopy yesterday by Dr. Love, please see his report. 06/24/16: Pulmonary continues to follow and attempt to wean and extubate. Current Visit: No (2) COPD (chronic obstructive pulmonary disease) Status: Acute Assessment and plan: Continuing ventilatory support, empiric antibiotic therapy, IV corticosteroids, nebulizer therapy 06/24/16: Continuing ventilatory support with attempts to wean per pulmonary. Continue antibiotic therapy, corticosteroid therapy, O2 supplementation, nebulizer therapy. Current Visit: No Qualifiers: COPD type: COPD with acute exacerbation Qualified Code(s): J44.1 - Chronic obstructive pulmonary disease with (acute) exacerbation (3) Hypothyroidism Status: Chronic Assessment and plan: Stable. Current Visit: No Hospitalist: Subjective Interval history: Patient remains on ventilator for acute and chronic respiratory failure. This morning she is awake and does obey simple commands as she is less sedated this morning. She continues with orogastric enteral feedings and Telles catheter remains in place. Exam - Constitutional Vitals: Period Temp Pulse Resp BP Sys/Martini Pulse Ox Last 24 Hr 96.7 F-98.1 F 58-84 11-24 104-166/61-89 97-100 General appearance: no acute distress - Head Head exam: Present: normocephalic, atraumatic - Eye Eye exam: Present: EOMI Pupils: Present: JHONNY - ENT ENT exam: Present: normal exam - Neck Neck exam: Present: normal inspection - Respiratory Respiratory exam: Present: clear to auscultation bilaterally. Absent: rales, rhonchi, wheezes - Cardiovascular Cardiovascular exam: Present: regular rate and rhythm. Absent: tachycardia - GI/Abdominal GI/Abdominal exam: Present: normal bowel sounds, soft. Absent: mass, tenderness - Extremities Exam Extremities exam: Absent: calf tenderness, edema - Back Exam Back exam: Present: normal inspection - Neurological Exam Neurological exam: Present: alert, other (Moves all extremities and obeys simple commands) - Skin Skin exam: Present: warm, dry. Absent: erythema Results - Labs CBC & BMP: 06/24/16 04:28 06/24/16 04:28 Lab Results: I have reviewed the past 24 hour labs
[2016-06-24] MEDS: SODIUM CHLORIDE 0.45% 1,000 ML IV SCH ×3 (07:32→23:10)
[2016-06-24] MEDS: PROPOFOL 1,000 MG/100 ML BOTTLE IV SCH ×3 (07:42→23:11)
--- NOTE | 2016-06-24 08:20 | Pulmonology Progress Note ---
Pulmonary - PN: Subj Interval history: This is a 70-year-old white female. I saw her in pulmonary consultation 2016. My impressions were 1. Acute respiratory failure requiring intubation mechanical ventilation 2. Severe COPD with acute exacerbation including infection, sputum retention and wheezing 3. Probable bilateral lower lung pneumonia 4. Significant tobacco abuse 5. Hypothyroid 6. Hyponatremia. 7. See past history 06/21/2016. Today's chest x-ray is better. Heart size is normal. Pulmonary arteries appear to be slightly enlarged. No hilar adenopathy. Mediastinum is normal. Endotracheal tube is in good position. The right lower lung and left lower lung infiltrates are improved. Also on chest exam she is much better today she has a lot less wheezing a lot less congestion. This patient is a chronic smoker with a long history of chronic sputum production and I suspect based on her findings and her presentation has good bit of retained secretions. Last night I discussed fiberoptic bronchoscopy with the family and they were agreeable. I will plan to bronchoscope her tomorrow if she can maintain her improvement so far no positive cultures. Patient's on IV Aminophyllin and her level is 5.4 and she is getting no response at this level so I will not increase the dosage. Potassium is low and I started her on potassium replacement protocol. Creatinine is 0.70 with a BUN of 23 natruretic peptide was 112 admit TSH was normal follow-up is elevated. 06/22/2016. This patient had a fiberoptic bronchoscopy earlier today. See the report. She was full of thick tenacious secretions that involved every lobe of her lungs. Sputum was so thick and tenacious required repeated withdrawal of the scope to clean the channels for suctioning. Chest x-ray shows a resolving right lower lung infiltrate. There are no positive cultures. ABGs are slowly improving. Potassium remains low at 3.4. CBC is stable. Theophylline level was 3.5. Patient's on stage III to weaning protocol. Findings and plans were discussed with the patient's daughter today. Dalton Dean nurse practitioner was present. 06/23/2016. This patient's chest sounds much better following a fiberoptic bronchoscopy done 06/22/2016. Chest x-ray shows small heart. Enlarged pulmonary arteries. Hyperinflated lungs. Small residual right lower lung infiltrate with some minor associated atelectasis and a tiny amount of atelectasis at the left lateral basilar segment. ABGs on FiO2 of 50% showed pH 7.45. PCO2 is 33, PO2 is 119 and bicarb is 24. Electrolytes are normal. Creatinine is dropped to 0.40 with a BUN of 30. Theophylline level is 11.4. There are no positive cultures. 06/24/2016. Patient's chest x-ray shows bibasilar increased interstitial markings with some mild associated atelectasis. 06/23/2016 she had 2 hours of CPAP with out any trouble. Later on during the day she did not tolerate CPAP well. Will continue on her present protocol. She still has problems with secretions and fiberoptic bronchoscopy is scheduled for tomorrow. ABGs on mechanical ventilation FiO2 of 50% shows a pH 7.47, PCO2 33, PO2 of 121, bicarb 23.6. There are no new cultures. Electrolytes are normal. Creatinine 0.5. CBC is stable. Patient has severe underlying COPD and several other problems. Physical exam. Vital signs. See below Neurologic. Patient moves all fours. She can be aroused and she appears more alert today. Chest. Coarse large airway congestion. Bibasilar inspiratory squeaks. Heart. No gallop Abdomen. Nontender. Positive bowel sounds Extremities. Nothing to suggest deep venous thrombophlebitis Neck. Symmetrical. No masses. No meningismus. Lymphatics. No submandibular cervical supraclavicular or epitrochlear adenopathy. Arterial. Carotids are decreased. Upper extremity pulses are palpable. Lower extremity pulses are nonpalpable. No evidence of lower extremity ischemia Venous. Neck upper and lower extremities are normal except for mild chronic venous stasis changes over both lower extremities. The remainder of the exam is noncontributory Plan. 1. Deep venous thrombophlebitis prevention protocol 2. Proton pump inhibitor protocol 3. Mechanical ventilation weaning protocol 4. Physical therapy while on ventilator protocol 5. Doppler venograms of lower extremities 6. Daily chest x-ray, ABGs and lab 7. Sputum for Gram stain culture and sensitivity 8. Cold agglutinins. Reported 06/21/2016 as negative. 9. Legionella titer. 10. agree with steroids and Unasyn. Add Levaquin. 11. IV Aminophyllin. Daily theophylline level. 12. Singulair 10 mg daily 13. Fluids. 14. See orders 15. 06/21/2016. Potassium replacement protocol. Fiberoptic bronchoscopy in the morning. See my note above 16. 06/22/2016. Fiberoptic bronchoscopy. Check results. Stage II weaning protocol. Will need repeat fiberoptic bronchoscopy on 06/25/2016. Daughter is agreeable. 17. 06/23/2016. 06/24/2016. Continue present therapy including present weaning protocol. Probable repeat fiberoptic bronchoscopy on 06/25/2016 Exam (Progress Note) - Constitutional Vitals: Period Temp Pulse Resp BP Sys/Martini Pulse Ox Last 24 Hr 97.2 F-98.1 F 58-84 11-24 104-166/61-89 97-100 Results - Labs CBC & BMP: 06/24/16 04:28 06/24/16 04:28
[2016-06-24] MEDS: VALPROIC ACID 250 MG/5 ML UDCUP PO SCH ×2 (09:13→20:43)
[2016-06-24] MEDS: LISINOPRIL 10 MG TABLET PO SCH (09:13)
[2016-06-24] MEDS: MONTELUKAST 10 MG TABLET PO SCH ×2 (09:13→20:43)
[2016-06-24] MEDS: NICOTINE 21 MG/24 HR PATCH TRANSDERM PRN (09:13)
[2016-06-24] MEDS: amLODIPine 10 MG TABLET PO SCH (09:13)
--- NOTE | 2016-06-24 09:13 | XRay Report ---
Single view the chest. Indication: Ventilated patient. Respiratory distress. Comparison: June 23, 2016. The heart is normal in size. Atelectasis has developed at the left lung base. The right lung is clear. Endotracheal tube and nasogastric tube are in satisfactory position. Impression: Development of left basilar atelectasis. PROCEDURE INTERPRETED AT [facility] DEPARTMENT OF RADIOLOGY Final Report Signed by: Dr. Renu Stack
[2016-06-24] MEDS: PANTOPRAZOLE 40 MG VIAL IV SCH (15:26)
[2016-06-24] MEDS: AMINOPHYLLINE 500 MG in SODIUM CHLORIDE 0.9% 480 ML IV SCH (18:32)
[2016-06-24] MEDS: LEVOFLOXACIN INJ 250 MG in PREMIX 1 EACH IV SCH (18:50)
[2016-06-24] MEDS: ENOXAPARIN 40 MG/0.4 ML SYRINGE SUBCUT SCH (18:50)
[2016-06-24] MEDS: OLANZapine 5 MG TABLET PO SCH (20:43)
[2016-06-25] MEDS: INSULIN REGULAR 100 UNIT/ML SUBCUT SCH ×4 (00:16→18:44)
[2016-06-25 03:24] LABS: ABG Base Excess 2.2 MMOL/L (-2.5-2.5); ABG HCO3 24.9 MMOL/L (20-26); ABG Oxygen Saturation 98.6 % (95-100); ABG PCO2 32.6 MM HG (35-48); ABG PO2 145.6 MM HG (80-95); ABG TCO2 25.9 MMOL/L (23-27)
[2016-06-25] MEDS: PIPERACILLIN/TAZOBACTAM 3,375 MG in SODIUM CHLORIDE 0.9% 100 ML IV SCH ×3 (04:36→20:45)
[2016-06-25] MEDS: methylPREDNISolone SOD SUC 40 MG/1 ML VIAL IV SCH ×3 (04:37→20:45)
[2016-06-25 05:44] LABS: Basophils % 0.1 % (0.0-0.8); Eosinophils % 0.1 % (0.00-10.9); Hemoglobin 12.8 GM/DL (12.0-16.0); Immature Granulocytes % 0.5 %; Immature Granulocytes Absolute 0.04 #; Lymphocytes # 2.8 10*3/uL (1.4-4.0); Lymphocytes % 37.8 % (21.3-54.2); Mean Corpuscular HGB Conc 32.8 GM/DL (32-36); Mean Corpuscular Hemoglobin 29 PG (27-34); Mean Corpuscular Volume 88.8 FL (87-102); Mean Platelet Volume 10.5 FL (9.6-12.0); Monocytes # 1.1 10*3/uL (0.11-0.8); Monocytes % 14.5 % (1.7-12.7); Neutrophils # 3.5 10*3/uL (1.4-7.4); Platelet Count 232 T/CUMM (130-400); Red Blood Count 4.39 MC/CUMM (3.8-5.5); Red Cell Distribution Width 14.7 % (9.3-17.3); White Blood Count 7.4 T/CUMM (4-12)
[2016-06-25 06:11] LABS: Magnesium 2.2 MG/DL (1.8-2.4); Osmolality,Calculated 288.8 MOS/KG (273-304); Potassium 4.9 MMOL/L (3.5-5.1)
[2016-06-25] MEDS: LEVOTHYROXINE 100 MCG VIAL IV SCH (06:24)
[2016-06-25] MEDS: SODIUM CHLORIDE 0.45% 1,000 ML IV SCH ×3 (06:27→17:21)
[2016-06-25] MEDS: PROPOFOL 1,000 MG/100 ML BOTTLE IV SCH ×2 (07:17→17:20)
--- NOTE | 2016-06-25 07:20 | XRay Report ---
XR chest 1V portable Indication: Intubated. Chest one view: Comparison yesterday. Endotracheal tube, NG tube, normal heart size and tortuous thoracic aorta, and hazy opacities of the lung bases are stable. No new densities are seen. Impression: No change. PROCEDURE INTERPRETED AT [facility] DEPARTMENT OF RADIOLOGY Final Report Signed by: Shashank Aviles M.D.
[2016-06-25] MEDS: amLODIPine 10 MG TABLET PO SCH (08:30)
[2016-06-25] MEDS: VALPROIC ACID 250 MG/5 ML UDCUP PO SCH ×2 (08:31→20:45)
[2016-06-25] MEDS: LISINOPRIL 10 MG TABLET PO SCH (08:31)
[2016-06-25] MEDS: MONTELUKAST 10 MG TABLET PO SCH ×2 (08:31→20:45)
--- NOTE | 2016-06-25 09:17 | Event Note ---
In hospital diagnostic and therapeutic fiberoptic bronchoscopy. Left upper lung and left lower lung and right lower lung lavages were sent for Gram stain, bacterial culture, fungal stains and culture. This is a 70-year-old white female on mechanical ventilation. She has had bibasilar atelectasis and not quite resolved right lower lung infiltrate. She is on mechanical ventilation. Her cough is ineffective. She has retained secretions. She is also had an aspiration injury and is being rechecked. She has had previous positive cultures from bronchoscopy specimens and these are to be rechecked. For these reasons she is evaluated with fiberoptic bronchoscopy. The endotracheal tube is in good position. The distal trachea looks normal. The dorota was sharp. Left mainstem bronchus was full of thick tenacious secretions that extended into the left upper lung, especially the lingula and extended into the left lower lung. There were areas of healing erosive friable slightly stenotic bronchitis in the left upper lung and the left lower lung. Both of these lobes were lavaged. And specimens were sent as noted above. The right mainstem bronchus was full of thick secretions. These mainly skipped the right upper lung. There was some involvement in the right middle lung. Most of the secretions a collected in the left lower lung in this area was lavaged until clear and specimens were sent for the studies listed above. There was underlying erosive friable bronchitis in the right mainstem bronchus and the right lower lung subsegments. The degree of erosion had improved significantly. Both bronchial trees showed a moderate to severe amount of collapsibility of large and small airways compatible with underlying COPD The patient tolerated procedure well there were no complications. Impression. 1. Aspiration 2. Retained secretions 3. Ineffective cough 4. Erosive friable bronchitis 5. COPD with collapsible large and small airways 6. Mechanical ventilation. 7. See above Plan. 1. Check bronchoscopy specimens 2. Follow-up chest
--- NOTE | 2016-06-25 09:32 | XRay Report ---
XR KUB Indication: Ileus. Abdomen 1 view: NG tube extends to the mid stomach. Right upper quadrant surgical clips are present. No small bowel dilatation shown. Some stool and gas is seen in the colon. Impression: Unremarkable bowel gas pattern. NG tube. PROCEDURE INTERPRETED AT [facility] DEPARTMENT OF RADIOLOGY Final Report Signed by: Shashank Aviles M.D.
--- NOTE | 2016-06-25 10:59 | Pulmonology Progress Note ---
Pulmonary - PN: Subj Interval history: This is a 70-year-old white female. I saw her in pulmonary consultation 2016. My impressions were 1. Acute respiratory failure requiring intubation mechanical ventilation 2. Severe COPD with acute exacerbation including infection, sputum retention and wheezing 3. Probable bilateral lower lung pneumonia 4. Significant tobacco abuse 5. Hypothyroid 6. Hyponatremia. 7. See past history 06/21/2016. Today's chest x-ray is better. Heart size is normal. Pulmonary arteries appear to be slightly enlarged. No hilar adenopathy. Mediastinum is normal. Endotracheal tube is in good position. The right lower lung and left lower lung infiltrates are improved. Also on chest exam she is much better today she has a lot less wheezing a lot less congestion. This patient is a chronic smoker with a long history of chronic sputum production and I suspect based on her findings and her presentation has good bit of retained secretions. Last night I discussed fiberoptic bronchoscopy with the family and they were agreeable. I will plan to bronchoscope her tomorrow if she can maintain her improvement so far no positive cultures. Patient's on IV Aminophyllin and her level is 5.4 and she is getting no response at this level so I will not increase the dosage. Potassium is low and I started her on potassium replacement protocol. Creatinine is 0.70 with a BUN of 23 natruretic peptide was 112 admit TSH was normal follow-up is elevated. 06/22/2016. This patient had a fiberoptic bronchoscopy earlier today. See the report. She was full of thick tenacious secretions that involved every lobe of her lungs. Sputum was so thick and tenacious required repeated withdrawal of the scope to clean the channels for suctioning. Chest x-ray shows a resolving right lower lung infiltrate. There are no positive cultures. ABGs are slowly improving. Potassium remains low at 3.4. CBC is stable. Theophylline level was 3.5. Patient's on stage III to weaning protocol. Findings and plans were discussed with the patient's daughter today. Dalton Dean nurse practitioner was present. 06/23/2016. This patient's chest sounds much better following a fiberoptic bronchoscopy done 06/22/2016. Chest x-ray shows small heart. Enlarged pulmonary arteries. Hyperinflated lungs. Small residual right lower lung infiltrate with some minor associated atelectasis and a tiny amount of atelectasis at the left lateral basilar segment. ABGs on FiO2 of 50% showed pH 7.45. PCO2 is 33, PO2 is 119 and bicarb is 24. Electrolytes are normal. Creatinine is dropped to 0.40 with a BUN of 30. Theophylline level is 11.4. There are no positive cultures. 06/24/2016. Patient's chest x-ray shows bibasilar increased interstitial markings with some mild associated atelectasis. 06/23/2016 she had 2 hours of CPAP with out any trouble. Later on during the day she did not tolerate CPAP well. Will continue on her present protocol. She still has problems with secretions and fiberoptic bronchoscopy is scheduled for tomorrow. ABGs on mechanical ventilation FiO2 of 50% shows a pH 7.47, PCO2 33, PO2 of 121, bicarb 23.6. There are no new cultures. Electrolytes are normal. Creatinine 0.5. CBC is stable. Patient has severe underlying COPD and several other problems. 06/25/2016. Today's chest x-ray shows some mild residual bibasilar infiltrates. Sputum's have grown Madelyn albicans. This is not a candidate ALBICANS pneumonia. Earlier today patient was evaluated with fiberoptic bronchoscopy. Aspiration injury is improving. She had a tremendous amount of retained secretions and she has underlying collapsible large and small airways compatible with known COPD. Specimens were reset for cultures ABGs on mechanical ventilation FiO2 50% shows a pH 7.50, PCO2 33, PO2 145, bicarb 25. Electrolytes are normal. Creatinine 0.5. BUNs 25. CBC is stable theophylline level is 3. this patient is not doing well with her weaning protocol. We will retry the day. She looks stronger and I may go to a T-tube for short period of time. Physical exam. Vital signs. See below Neurologic. Patient moves all fours. She can be aroused and she appears more alert today. Chest. Coarse large airway congestion. Bibasilar inspiratory squeaks. Heart. No gallop Abdomen. Nontender. Positive bowel sounds Extremities. Nothing to suggest deep venous thrombophlebitis Neck. Symmetrical. No masses. No meningismus. Lymphatics. No submandibular cervical supraclavicular or epitrochlear adenopathy. Arterial. Carotids are decreased. Upper extremity pulses are palpable. Lower extremity pulses are nonpalpable. No evidence of lower extremity ischemia Venous. Neck upper and lower extremities are normal except for mild chronic venous stasis changes over both lower extremities. The remainder of the exam is noncontributory Plan. 1. Deep venous thrombophlebitis prevention protocol 2. Proton pump inhibitor protocol 3. Mechanical ventilation weaning protocol 4. Physical therapy while on ventilator protocol 5. Doppler venograms of lower extremities 6. Daily chest x-ray, ABGs and lab 7. Sputum for Gram stain culture and sensitivity 8. Cold agglutinins. Reported 06/21/2016 as negative. 9. Legionella titer. 10. agree with steroids and Unasyn. Add Levaquin. 11. IV Aminophyllin. Daily theophylline level. 12. Singulair 10 mg daily 13. Fluids. 14. See orders 15. 06/21/2016. Potassium replacement protocol. Fiberoptic bronchoscopy in the morning. See my note above 16. 06/22/2016. Fiberoptic bronchoscopy. Check results. Stage II weaning protocol. Will need repeat fiberoptic bronchoscopy on 06/25/2016. Daughter is agreeable. 17. 06/23/2016. 06/24/2016. Continue present therapy including present weaning protocol. Probable repeat fiberoptic bronchoscopy on 06/25/2016 18. 06/25/2016. Fiberoptic bronchoscopy. See report. Continue weaning protocol and other protocol Exam (Progress Note) - Constitutional Vitals: Period Temp Pulse Resp BP Sys/Martini Pulse Ox Last 24 Hr 97.5 F-98.2 F 62-118 14-36 99-152/68-90 96-100 Results - Labs CBC & BMP: 06/25/16 04:44 06/25/16 04:44
--- NOTE | 2016-06-25 11:15 | Pathology Report from [facility] ---
ACCESSION # : [id number] PATIENT NAME : Ramona Mcgill ORDERING DR : EDWARD DÍAZ MD CLINICAL HX: Respiratory Arrest POST-OP DX: Same SPECIMEN INFO: Washing,Bronchial,JAMES - 15 ml's greyish white, mucoid with red and aparicio pieces. CLASS: I CLASS COMMENTS: Inflammation, benign respiratory cellsCELL BLOCK: Same CLASS LEGEND: CLASS 0 Material inadequate for diagnosis because of (see comment) CLASS I Absence of atypical or abnormal cells CLASS II Atypical Cytology but no evidence of malignancy CLASS III Cytology suggestive of but not conclusive for malignancy CLASS IV Cytology strongly suggestive of malignancy CLASS V Cytology conclusive for malignancy SERVICE DATE: 06/22/2016 REPORT DATE: 06/25/2016 PATHOLOGIST: Kenyetta Alfonso M.D. [facility]
[2016-06-25] MEDS: LACTULOSE 20 GM/30 ML UDCUP PO PRN (12:12)
--- NOTE | 2016-06-25 15:36 | Hospitalist Progress Note ---
Assessment and Plan (1) Acute and chronic respiratory failure Status: Acute Assessment and plan: Status post bronchoscopy today. She also had a bronchoscopy on on June 22, continue attempts to wean from the vent. Consult Girish, Continue Zosyn and Levjv, continue duo nebs Current Visit: No (2) Hypothyroidism Status: Chronic Assessment and plan: decrease levothyroxine dose to 75 mcg IV, Hold until I get a tsh and free t4 level Current Visit: No (3) Depression, major, recurrent, severe with psychosis Status: Acute Assessment and plan: cont zyprexa Current Visit: No (4) COPD with exacerbation Status: Acute Assessment and plan: cont duonebs and IV steroids. Current Visit: Yes (5) Hypotension Status: Acute Assessment and plan: hold norvasc and lisinopril Current Visit: Yes Hospitalist: Subjective Interval history: Patient has poor IV access were going to get a PICC line from her today. Dr. Ma to do a bronched today she has got right-sided rhonchi. Her bowel sounds are very diminished I mean to get a KUB. Patient is intubated but shakes her head yes or no to questions. She denies any pain at this time. Exam - Constitutional Vitals: Period Temp Pulse Resp BP Sys/Martini Pulse Ox Last 24 Hr 97.6 F-97.9 F 62-118 14-48 93-152/66-90 95-100 Exam: Heart Rate-[RRR] Lungs-[right-sided rhonchi] GI-[diminished bs soft, NT] Ext-[1+ edema] Neuro intubated but able to answer yes or no questions. psych [depressed mood and affect] General [no acute distress] Results - Labs CBC & BMP: 06/25/16 04:44 06/25/16 04:44 Lab Results: I have reviewed the past 24 hour labs - Diagnostic Findings Procedure: KUB x-ray: report reviewed by me (No bowel obstruction unremarkable bowel gas pattern)
[2016-06-25] MEDS ORDERED: LEVOTHYROXINE 100 MCG VIAL IV SCH (15:40)
[2016-06-25 16:09] LABS: Free T4 (Free Thyroxine) 1.18 NG/DL (0.76-1.46); Thyroid Stimulating Hormone 4.48 uIU/ml (0.358-3.74)
--- NOTE | 2016-06-25 16:50 | Post Interventional Procedure ---
Pre-op diagnosis: acute on chronic respiratory failure, pneumonia, poor venous access Post-op diagnosis: same Procedure: central venous catheter placement Contrast: none Flouroscopy: none Radiologist: Skip Longo Anesthesia: local Specimens: none sent Estimated blood loss: minimal (3 mL) Complications: none Condition: stable Description/Findings: right IJ 7 Fr triple lumen catheter in place and ready for use Assessment and Plan - Time spent with patient Time spent with patient: Less than 30 minutes
[2016-06-25] MEDS: LEVOFLOXACIN INJ 750 MG in PREMIX 1 EACH IV SCH (17:15)
[2016-06-25] MEDS: PANTOPRAZOLE 40 MG VIAL IV SCH (17:37)
--- NOTE | 2016-06-25 17:43 | XRay Report ---
Exam: XR chest post procedure Indication: Status post central line placement Comparison study: 06/25/2016 at 2:55 AM Findings: Prior study, there is been interval placement of a right-sided central venous catheter. The tip terminates at the cavoatrial junction. Critics silhouette and mediastinal contours appear similar to prior. There are minimal basilar opacities which are slightly improved from prior. There is no pneumothorax. Endotracheal tube and esophagogastric tube are in essentially stable position. Osseous structures appear stable. Impression: No pneumothorax or other acute complication following right internal jugular central venous catheter placement. PROCEDURE INTERPRETED AT [facility] DEPARTMENT OF RADIOLOGY Final Report Signed by: Skip Longo
--- NOTE | 2016-06-25 17:43 | Ultrasound Report ---
US guide vascular access, IR cvc insert nt >5 Central Line placement using fluoroscopic and ultrasound guidance Ultrasound of the right neck Clinical Information: 70-year-old female with COPD and acute on chronic exacerbation as well as pneumonia and limited venous access. Central venous catheter is requested for intermediate term stable central venous access. Physician[s]: Dr. Longo Procedure: The patient was advised of the benefits, risks, and alternatives of the procedure and informed consent was obtained. A time out was performed with verification of the patient's name, MRN, site of procedure, and type of procedure to be performed. The patient was positioned in the supine position on the angiographic table. The site was prepped and draped in the usual sterile fashion. Local anesthesia only was used for the procedure. The neck and anterior chest wall were anesthetized with lidocaine. The right internal jugular vein was accessed using a 19-gauge sheath needle needle via a lateral approach with ultrasound guidance. Ultrasound image capture of vascular access was obtained for the patient's permanent record. A 0.025" J wire was advanced into the superior vena cava. The tract was serially dilated over the wire. A 7 M[place]gasque triple lumen 20 cm Arrow central venous catheter was placed at the 16 cm carlota. The tip position is confirmed at the cavoatrial junction with post procedure chest radiograph. The ports aspirate and flush freely. The catheter was sutured in place using 3-0 silk and covered with a sterile dressing. The patient tolerated the procedure well and was returned to the PRU in stable condition. EBL: < 5 mL. Complications: None. Total Fluoroscopy Time: 0. Conclusion: Successful placement of a triple lumen central venous catheter via the right internal jugular vein. The catheter is ready for immediate use. PROCEDURE INTERPRETED AT [facility] DEPARTMENT OF RADIOLOGY Final Report Signed by: Skip Longo
[2016-06-25] MEDS: ENOXAPARIN 40 MG/0.4 ML SYRINGE SUBCUT SCH (18:33)
[2016-06-25] MEDS: OLANZapine 5 MG TABLET PO SCH (20:45)
[2016-06-26] MEDS: INSULIN REGULAR 100 UNIT/ML SUBCUT SCH ×3 (00:30→12:32)
[2016-06-26] MEDS: PROPOFOL 1,000 MG/100 ML BOTTLE IV SCH ×2 (01:17→06:38)
[2016-06-26 03:10] LABS: ABG Base Excess 2.5 MMOL/L (-2.5-2.5); ABG HCO3 26.7 MMOL/L (20-26); ABG Oxygen Saturation 98.7 % (95-100); ABG PCO2 33.6 MM HG (35-48); ABG PH 7.488 (7.35-7.45); ABG TCO2 22.4 MMOL/L (23-27); Allen Test Positive; Pt O2 Delivery Device Ventilator
[2016-06-26] MEDS: methylPREDNISolone SOD SUC 40 MG/1 ML VIAL IV SCH ×2 (04:52→12:41)
[2016-06-26] MEDS: SODIUM CHLORIDE 0.45% 1,000 ML IV SCH ×3 (04:52→10:41)
[2016-06-26] MEDS: PIPERACILLIN/TAZOBACTAM 3,375 MG in SODIUM CHLORIDE 0.9% 100 ML IV SCH ×2 (04:53→12:41)
[2016-06-26] MEDS: AMINOPHYLLINE 500 MG in SODIUM CHLORIDE 0.9% 480 ML IV SCH (06:14)
--- NOTE | 2016-06-26 07:24 | XRay Report ---
XR chest 1V portable Indication: Intubated. Chest one view: Since yesterday, endotracheal tube, NG tube, central line, normal heart size and mediastinal contour and hazy opacities overlying both lung bases are stable. No new infiltrates are shown. Impression: No change. PROCEDURE INTERPRETED AT [facility] DEPARTMENT OF RADIOLOGY Final Report Signed by: Shashank Aviles M.D.
[2016-06-26] MEDS: MONTELUKAST 10 MG TABLET PO SCH (08:35)
[2016-06-26] MEDS: VALPROIC ACID 250 MG/5 ML UDCUP PO SCH (08:35)
[2016-06-26] MEDS: LACTULOSE 20 GM/30 ML UDCUP PO PRN (08:36)
[2016-06-26] MEDS ORDERED: INFLUENZA VIRUS VACCINE 0.5 ML SYRINGE IM ONE ×2 (09:00→14:53)
--- NOTE | 2016-06-26 09:30 | Discharge Summary ---
<Franklin Horne - Last Filed: 06/26/16 09:28> Hospital Course - Hospital Course Hospital Course: This is a 70-year-old female who presented to the emergency room on with complaints of shortness of breath. Given her extensive pulmonary history, she was admitted to the ICU with acute on chronic respiratory failure, hyponatremia, respiratory acidosis. She was started on empiric Levaquin, Zosyn and DuoNeb for lung coverage and tube feedings per orogastric enteral tube. Dr. Ma, pulmonology, was consulted for vent management as the patient was on BiPAP for respiratory failure. On day 3, she was found to have hypokalemia which was replaced and normalized. On 06/22/2016, patient had a bilateral fiberoptic bronchoscopy performed. Report showed thick tenacious secretions that involved every lobe of her lungs and required repeated withdrawal of the scope for adequate suctioning. Cultures were negative. On 06/25/2016, patient had a left upper and lower as well as right lower lung lavages via therapeutic fiberoptic bronchoscopy. Due to the patient's poor IV access, she also had a central venous catheter placed in the right internal jugular vein on 06/25/2016. At this time, the patient has reached maximum benefit from hospitalization and will be discharged today. - Time spent with patient Time with patient DS: Greater than 30 minutes Discharge Plan - Discharge Data Disposition: Disch/Xfer-Ipshort Term Hos - Discharge Medications New Albuterol Neb [Proventil Neb] 2.5 mg RESP TX RT Q1H PRN #0 PRN Reason: Shortness Of Breath/Wheezing Albuterol/Ipratropium Neb [Duoneb] 3 ml RESP TX RT Q6H PRN #0 PRN Reason: SOB, wheezing Aminophylline 500 mg IV .Q24H vial Dextrose 50% [D50] 25 gm IV PRN PRN #0 vial PRN Reason: Hypoglycemia with IV access Glucagon 1 mg IM PRN PRN #0 vial PRN Reason: Hypoglycemia w/o IV access Heparin Lock Flush 50 units IV Q12H syringe Heparin Lock Flush 50 units IV PRN PRN #0 syringe PRN Reason: central line lock Insulin Regular [HumuLIN R] See Protocol SUBCUT Q6HR unit Montelukast Tab [Singulair Tab] 10 mg PO DAILY tablet Nicotine 21 mg/24 Hr Patch [Nicoderm CQ 21 mg/24 hr Patch] 1 patch TRANSDERM DAILY PRN #0 patch PRN Reason: Nicotine Cravings Piperacillin/Tazobactam [Zosyn] 3,375 mg IV Q8H vial Valproic Acid Liquid [Depakene] 500 mg PO BID methylPREDNISolone SOD SUC INJ [SoluMEDROL] 40 mg IV Q8H vial Enoxaparin [Lovenox] 40 mg SUBCUT Q24H syringe Lactulose Liquid [Chronulac] 20 gm PO Q6HR PRN #0 PRN Reason: Constipation Pantoprazole Inj [Protonix Inj] 40 mg IV Q24H vial Continue HYDROcodone/ACETAMIN 5-325 [[place] 5-325] 1 tablet PO Q8HR PRN #20 tablet PRN Reason: Pain Mild To Moderate (1-7) Levothyroxine Sodium 150 mcg PO QAM OLANZapine [Olanzapine] 10 mg PO BEDTIME Sertraline [Zoloft] 50 mg PO QAM Discontinued Albuterol Sulfate [Albuterol Inhaler] 2 puff INH Q6H PRN PRN Reason: Shortness Of Breath/Wheezing Fluticasone 50 Mcg Nasal [place] [Flonase Nasal [place]] 2 spray BOTH NARES DAILY PRN PRN Reason: Allergy Symptoms amLODIPine [Norvasc] 10 mg PO QAM Risperidone Microspheres [Risperdal Consta] 25 mg IM Q14D Tizanidine HCl [Tizanidine HCl] 4 mg PO BID Divalproex Sodium [Divalproex Sodium ER] 500 mg PO BID Niacin ER [Niaspan] 500 mg PO QAM Albuterol Sulfate [Proair HFA] 2 puff INH Q6H PRN PRN Reason: Shortness Of Breath/Wheezing Lisinopril [Prinivil] 10 mg PO QAM - Follow Up or Referral - Forms/Instructions Exam - Constitutional Vitals: Period Temp Pulse Resp BP Sys/Martini Pulse Ox Last 24 Hr 97 F-98.0 F 61-106 9-48 93-146/66-87 97-100 Discharge Results Procedures and tests throughout hospitalization: Pending Orders 06/20/16 12:34 Legionella Pneumophilia Ab Stat 06/22/16 AFB Culture/Smears Stat Fungal Culture w/ Prep Stat 06/25/16 Bronchoalveolar Lavage C & GS Stat Fungal Culture w/ Prep Stat 06/27/16 04:00 XR chest 1V portable IN AM ABG [Arterial Blood Gas] IN AM 06/28/16 04:00 Magnesium Routine Phosphorous Routine Prealbumin Routine Labs on day of discharge: Labs from last 24 hours 06/26/16 06/26/16 06/26/16 12:17 05:59 02:51 ABG pH 7.488 H ABG pCO2 33.6 L ABG pO2 118.0 H ABG HCO3 26.7 H ABG Total CO2 22.4 L ABG O2 Saturation 98.7 ABG Base Excess 2.5 FiO2 50.00 POC Glucose 133 H 133 H Free T4 TSH 3rd Generation 06/25/16 06/25/16 06/25/16 Unknown 23:23 17:48 ABG pH ABG pCO2 ABG pO2 ABG HCO3 ABG Total CO2 ABG O2 Saturation ABG Base Excess FiO2 POC Glucose 139 H 154 H Free T4 1.18 TSH 3rd Generation 4.480 H Preliminary micro results at discharge 06/25/16 Unknown Bronchoalveolar Lavage Culture - Preliminary Bronchial James Lavage No Growth at 24 hours. 06/22/16 Unknown Fungal Culture - Preliminary Bronchial James Lavage Madelyn albicans DS: Provider Date of admission: 06/20/16 13:33 Primary care physician: . No PCP Attending physician on admission: Isabel You MD Consults: 06/20/16 14:36 Consult to Physician [CONS] Routine Comment: Consulting Provider: Kev Ma 06/20/16 14:47 Consult to Pharmacy [CONS] Routine Reason for Pharmacy Consult: Adjust Meds Renal Funct 06/20/16 15:28 Consult to Physician [CONS] Routine Comment: Consulting Provider: Kev Ma Consulting Provider Notified: Yes Consult to Specialist Group: Pulmonology Person Notified: LARON Date Notified: 06/20/16 Time Notified: 15:40 06/20/16 15:39 Consult to Pharmacy [CONS] Routine Reason for Pharmacy Consult: Adjust Meds Renal Funct 06/20/16 15:42 Consult to Dietitian [CONS] Routine Reason for Dietitian: TF-Initiate/Manage 06/24/16 07:28 Consult to Physical Therapy [CONS] Routine Reason for Physical Therapy: Other Start Therapy: Tomorrow Consult Comment: early progressive mobility level 2, protocol 06/25/16 09:14 Consult to Case Mgmt/Social Srvs [CONS] Routine Reason for Case Mgmt/Social Srvs: LTAC Consult Comment: [facility] referral Discharging clinician: Franklin HARMON Expected date of discharge: 06/26/16 <Hemalatha Harmon - Last Filed: 06/26/16 12:43> Hospital Course - Hospital Course Hospital Course: Patient seen and examined. Hospital course reviewed and edited. Hospital course is inaccurate. Patient was not placed on BiPAP. Patient was intubated in the emergency room and has been intubated ever since. Patient has severe COPD exacerbation. Patient has been treated for aspiration pneumonia but has been difficult to wean. Patient has had bronchoscopies 2. One bronchoscopy was performed on 06/22/2016 and the second was performed on 06/25/2016. Only growth on those bronchoscopies is Madelyn albicans which is not an organism treated in the lungs. Blood cultures 2 have been negative. Patient's white count on admission was 14 which completely resolved within a few days of IV antibiotics Levaquin and Zosyn. Patient has severe COPD and is a heavy smoker. Her has recently passed according to nursing. I spoke with Dr. Ma today and he is concerned that she may need a tracheostomy. Patient was started on tube feeds soon after being intubated. Central line was placed by Dr. Longo on 06/25/2016 due to poor IV access. Patient had some hypotension on admission and all blood pressure medicines have been placed on hold and her blood pressure improved. Patient has hypothyroidism which is been treated with IV Synthroid. I will change her to po levothyroxine 75 mcg daily. we will continue breathing treatments, steroids and abx. Patient is on Zyprexa po and risperidone injections bimonthly. We have continued her Zyprexa but I want to be cautious about giving her too many antipsychotics as it will contributing to swallowing difficulties later. Patient will be transferred to [facility] under the care of Dr. Sanchez for slow weaning protocol. - Time spent with patient Time with patient DS: Greater than 30 minutes (60 min) Diagnosis - Discharge Diagnosis (1) Acute and chronic respiratory failure Status: Acute (2) Hypothyroidism Status: Chronic (3) Depression, major, recurrent, severe with psychosis Status: Acute (4) COPD with exacerbation Status: Acute (5) Hypotension Status: Acute Discharge Plan - Discharge Data Condition at Discharge: Stable Discharge Diet: other (With free water at 50 mL's every 4 hours) - Forms/Instructions Additional Discharge Instructions: Ventilator settings are as follows. AC 14, TV 650, peep 5, FIO2 50% Exam - Constitutional General appearance: normal weight, no acute distress - Respiratory Respiratory exam: Present: clear to auscultation bilaterally, decreased breath sounds. Absent: rhonchi, wheezes - Cardiovascular Cardiovascular exam: Present: regular rate and rhythm. Absent: systolic murmur - GI/Abdominal GI/Abdominal exam: Present: normal bowel sounds, soft. Absent: tenderness
--- NOTE | 2016-06-26 10:39 | Pulmonology Progress Note ---
Pulmonary - PN: Subj Interval history: This is a 70-year-old white female. I saw her in pulmonary consultation 2016. My impressions were 1. Acute respiratory failure requiring intubation mechanical ventilation 2. Severe COPD with acute exacerbation including infection, sputum retention and wheezing 3. Probable bilateral lower lung pneumonia 4. Significant tobacco abuse 5. Hypothyroid 6. Hyponatremia. 7. See past history 06/21/2016. Today's chest x-ray is better. Heart size is normal. Pulmonary arteries appear to be slightly enlarged. No hilar adenopathy. Mediastinum is normal. Endotracheal tube is in good position. The right lower lung and left lower lung infiltrates are improved. Also on chest exam she is much better today she has a lot less wheezing a lot less congestion. This patient is a chronic smoker with a long history of chronic sputum production and I suspect based on her findings and her presentation has good bit of retained secretions. Last night I discussed fiberoptic bronchoscopy with the family and they were agreeable. I will plan to bronchoscope her tomorrow if she can maintain her improvement so far no positive cultures. Patient's on IV Aminophyllin and her level is 5.4 and she is getting no response at this level so I will not increase the dosage. Potassium is low and I started her on potassium replacement protocol. Creatinine is 0.70 with a BUN of 23 natruretic peptide was 112 admit TSH was normal follow-up is elevated. 06/22/2016. This patient had a fiberoptic bronchoscopy earlier today. See the report. She was full of thick tenacious secretions that involved every lobe of her lungs. Sputum was so thick and tenacious required repeated withdrawal of the scope to clean the channels for suctioning. Chest x-ray shows a resolving right lower lung infiltrate. There are no positive cultures. ABGs are slowly improving. Potassium remains low at 3.4. CBC is stable. Theophylline level was 3.5. Patient's on stage III to weaning protocol. Findings and plans were discussed with the patient's daughter today. Dalton Dean nurse practitioner was present. 06/23/2016. This patient's chest sounds much better following a fiberoptic bronchoscopy done 06/22/2016. Chest x-ray shows small heart. Enlarged pulmonary arteries. Hyperinflated lungs. Small residual right lower lung infiltrate with some minor associated atelectasis and a tiny amount of atelectasis at the left lateral basilar segment. ABGs on FiO2 of 50% showed pH 7.45. PCO2 is 33, PO2 is 119 and bicarb is 24. Electrolytes are normal. Creatinine is dropped to 0.40 with a BUN of 30. Theophylline level is 11.4. There are no positive cultures. 06/24/2016. Patient's chest x-ray shows bibasilar increased interstitial markings with some mild associated atelectasis. 06/23/2016 she had 2 hours of CPAP with out any trouble. Later on during the day she did not tolerate CPAP well. Will continue on her present protocol. She still has problems with secretions and fiberoptic bronchoscopy is scheduled for tomorrow. ABGs on mechanical ventilation FiO2 of 50% shows a pH 7.47, PCO2 33, PO2 of 121, bicarb 23.6. There are no new cultures. Electrolytes are normal. Creatinine 0.5. CBC is stable. Patient has severe underlying COPD and several other problems. 06/25/2016. Today's chest x-ray shows some mild residual bibasilar infiltrates. Sputum's have grown Madelyn albicans. This is not a candidate ALBICANS pneumonia. Earlier today patient was evaluated with fiberoptic bronchoscopy. Aspiration injury is improving. She had a tremendous amount of retained secretions and she has underlying collapsible large and small airways compatible with known COPD. Specimens were reset for cultures ABGs on mechanical ventilation FiO2 50% shows a pH 7.50, PCO2 33, PO2 145, bicarb 25. Electrolytes are normal. Creatinine 0.5. BUNs 25. CBC is stable theophylline level is 3. this patient is not doing well with her weaning protocol. We will retry the day. She looks stronger and I may go to a T-tube for short period of time. 06/26/2016. This patient is on stage to the weaning protocol. We need to push her harder. She is also physical therapy token protocol. Her chest x-ray is stable with some faint bibasilar infiltrates. Bronchoscopy specimens have only grown Madelyn. ABGs on mechanical ventilation FiO2 50% shows a pH of 7.49, PCO2 33.6, PO2 118, bicarb 26.7. Glucoses are under good control Physical exam. Vital signs. See below Neurologic. Patient moves all fours. She can be aroused and she appears more alert today. Chest. Coarse large airway congestion. Bibasilar inspiratory squeaks. Heart. No gallop Abdomen. Nontender. Positive bowel sounds Extremities. Nothing to suggest deep venous thrombophlebitis Neck. Symmetrical. No masses. No meningismus. Lymphatics. No submandibular cervical supraclavicular or epitrochlear adenopathy. Arterial. Carotids are decreased. Upper extremity pulses are palpable. Lower extremity pulses are nonpalpable. No evidence of lower extremity ischemia Venous. Neck upper and lower extremities are normal except for mild chronic venous stasis changes over both lower extremities. The remainder of the exam is noncontributory Plan. 1. Deep venous thrombophlebitis prevention protocol 2. Proton pump inhibitor protocol 3. Mechanical ventilation weaning protocol 4. Physical therapy while on ventilator protocol 5. Doppler venograms of lower extremities 6. Daily chest x-ray, ABGs and lab 7. Sputum for Gram stain culture and sensitivity 8. Cold agglutinins. Reported 06/21/2016 as negative. 9. Legionella titer. 10. agree with steroids and Unasyn. Add Levaquin. 11. IV Aminophyllin. Daily theophylline level. 12. Singulair 10 mg daily 13. Fluids. 14. See orders 15. 06/21/2016. Potassium replacement protocol. Fiberoptic bronchoscopy in the morning. See my note above 16. 06/22/2016. Fiberoptic bronchoscopy. Check results. Stage II weaning protocol. Will need repeat fiberoptic bronchoscopy on 06/25/2016. Daughter is agreeable. 17. 06/23/2016. 06/24/2016. Continue present therapy including present weaning protocol. Probable repeat fiberoptic bronchoscopy on 06/25/2016 18. 06/25/2016. Fiberoptic bronchoscopy. See report. Continue weaning protocol and other protocol 19. 06/26/2016. This patient is not making as much progress as needed with weaning protocol. She has underlying COPD which is severe and complicated by pneumonia. If she does not improve in the near future we need to contact consider tracheostomy Exam (Progress Note) - Constitutional Vitals: Period Temp Pulse Resp BP Sys/Martini Pulse Ox Last 24 Hr 97 F-98.0 F 61-106 9-48 93-146/66-87 95-100 Results - Labs CBC & BMP: 06/25/16 04:44 06/25/16 04:44
[2016-06-26] MEDS: PANTOPRAZOLE 40 MG VIAL IV SCH (15:59)
[2016-06-26] MEDS: LEVOFLOXACIN INJ 750 MG in PREMIX 1 EACH IV SCH (16:00)
[2016-06-26 16:13] VITALS: BP 139/75
[2016-07-02] MEDS ORDERED: INFLUENZA VIRUS VACCINE 0.5 ML SYRINGE IM ONE (09:00)
== END 2016-06-26 16:00 | DRG 207 ==
LOC: N.ED 12:21 → SUATTDRO 13:33 → N.EDINP 13:33 → N.ICU 15:20
PROVIDERS: ADMIT Internal Medicine; ATTEND Internal Medicine

== ENCOUNTER 2016-08-12 20:30 | Inpatient (IN) ==
[2016-08-12] MEDS ORDERED: ALBUTEROL 2.5 MG/3 ML NEB RESP TX STA ×2 (21:40→22:48)
[2016-08-12] MEDS ORDERED: ALBUTEROL/IPRATROPIUM 3 ML NEB RESP TX STA (21:40)
[2016-08-12 22:19] LABS: Basophils # 0.1 10*3/uL (0.0-0.2); Basophils % 0.6 % (0.0-0.8); Eosinophils # 0.3 10*3/uL (0.0-0.87); Eosinophils % 2.9 % (0.00-10.9); Hematocrit 28.4 VOL% (35.7-47.0); Hemoglobin 9.1 GM/DL (12.0-16.0); Immature Granulocytes % 5.2 %; Immature Granulocytes Absolute 0.53 #; Lymphocytes # 1.8 10*3/uL (1.4-4.0); Lymphocytes % 17.6 % (21.3-54.2); Mean Corpuscular Hemoglobin 30 PG (27-34); Mean Corpuscular Volume 92.5 FL (87-102); Mean Platelet Volume 9.7 FL (9.6-12.0); Monocytes # 1.7 10*3/uL (0.11-0.8); Monocytes % 16.3 % (1.7-12.7); Neutrophils # 5.8 10*3/uL (1.4-7.4); Neutrophils % 57.4 % (38.7-73.9); Platelet Count 307 T/CUMM (130-400); Red Blood Count 3.07 MC/CUMM (3.8-5.5); Red Cell Distribution Width 16.4 % (9.3-17.3); White Blood Count 10.1 T/CUMM (4-12)
[2016-08-12 22:48] LABS: Calcium 7.3 MG/DL (8.5-10.1); Osmolality,Calculated 286.8 MOS/KG (273-304); Potassium 3.7 MMOL/L (3.5-5.1)
[2016-08-12] MEDS ORDERED: methylPREDNISolone SOD SUC 125 MG/2 ML VIAL IV STA (22:48)
[2016-08-12 22:57] LABS: Band Neutrophils 1 % (0-10); Eosinophils 1 % (0-10); Lymphocytes 17 % (20-55); Metamyelocytes 1 %; Myelocytes 6 %; Promyelocytes 1 %; Segmented Neutrophils 62 % (50-85); Total Cells Counted 100
[2016-08-12 22:58] LABS: Platelet Estimate Normal
[2016-08-12] MEDS ORDERED: methylPREDNISolone SOD SUC 125 MG/2 ML VIAL ONE (23:22)
[2016-08-13] MEDS ORDERED: ALBUTEROL 2.5 MG/3 ML NEB RESP TX PRN (00:34)
[2016-08-13] MEDS ORDERED: ONDANSETRON 4 MG/2 ML VIAL IV PRN (00:34)
[2016-08-13] MEDS ORDERED: ACETAMINOPHEN 325 MG TABLET PO PRN (00:34)
[2016-08-13] MEDS ORDERED: GLUCOSE GEL 15 GM TUBE PO PRN (00:37)
[2016-08-13] MEDS ORDERED: diphenhydrAMINE CAP 25 MG CAPSULE PO PRN (00:37)
[2016-08-13] MEDS ORDERED: MAGNESIUM HYDROXIDE SUSP 30 ML UDCUP PO PRN (00:37)
[2016-08-13] MEDS ORDERED: GLUCAGON 1 MG VIAL IM PRN ×2 (00:37→09:11)
[2016-08-13] MEDS ORDERED: DEXTROSE 50% 25 GM/50 ML VIAL IV PRN ×2 (00:37→09:11)
--- NOTE | 2016-08-13 01:46 | Hospitalist History & Physical ---
Assessment and Plan (1) Acute and chronic respiratory failure Status: Acute Assessment and plan: Patient with COPD requiring oxygen. This is an acute exacerbation of chronic conditionCOPD. Patient will be treated with bronchodilators and corticosteroids. Her chest x-ray appears clear and there is no sign of infection. Current Visit: No Qualifiers: Respiratory failure complication: hypoxia Qualified Code(s): J96.21 - Acute and chronic respiratory failure with hypoxia (2) Debility Status: Acute Assessment and plan: The patient was being treated at [facility] for rehab secondary to debility. We will continue PT OT consultations during hospitalization and plan for return to rehab once breathing has improved. Current Visit: No (3) COPD with exacerbation Status: Acute Assessment and plan: Continue bronchodilators and corticosteroids. Consult pulmonary. Review of her home medications does not include Advair, Spiriva, Combivent, or Daliresp or any other chronic maintenance medications. Question whether this patient should be on chronic steroid therapy. Further recommendations will depend on her response to therapy and consultation with pulmonary. Current Visit: No History of Present Illness Chief complaint: shortness of breath History of present illness: Ms. Mcgill is a 70 year old female brought to the emergency room at [facility] after she complained of shortness of breath at [facility]. The patient was recently hospitalized here and transferred to [facility] for rehabilitation. She has a history of COPD and had a prolonged hospitalization from which she suffered debility requiring rehabilitation. On arrival to the emergency department she was noted to be short of breath and having accessory muscle usage. She had a decreased oxygen saturation and was treated with Solu-Medrol IV and multiple albuterol/DuoNeb treatments. I was consulted to admit the patient to the hospital for acute exacerbation of COPD. This is an acute on chronic process in this patient. She reports living at home alone and not being on home oxygen. Her lung disease according to previous notes is quite severe. She was seen in consultation by Dr. Ma during the last hospitalization. Her symptoms are acute, severe, and have improved slightly with treatment in the emergency department. The symptoms were progressive throughout the day and worsened this evening prompting the transfer to the emergency department. The patient was treated with one breathing treatment at [facility] prior to transfer. Home Medications Medication Instructions Recorded Confirmed Type OLANZapine [Olanzapine] 10 mg PO BEDTIME 06/20/16 08/12/16 History Glucagon 1 mg IM PRN PRN #0 vial 03/28/17 05/14/17 Rx Acetaminophen 650 mg PO Q6HR PRN MDD 4 gm per 24h 08/02/16 08/12/16 History Albuterol/Ipratropium Neb [Duoneb] 3 ml INH Q6HR PRN 08/02/16 08/12/16 History Albuterol/Ipratropium Neb [Duoneb] 3 ml INH QID 08/02/16 08/12/16 History Dextrose 50% [D50] 50 ml IV PRN PRN 08/02/16 08/12/16 History Digoxin Tab [Lanoxin Tab] 125 mcg PO DAILY 08/02/16 08/12/16 History Divalproex [Depakote] 500 mg PO BID 08/02/16 08/12/16 History Glucose Gel [Glutose 15] 15 gram PO PRN PRN 08/02/16 08/12/16 History Insulin Regular [HumuLIN R] See Protocol SUBCUT BID 08/02/16 08/12/16 History Levothyroxine Sodium 50 mcg PO QAM 08/02/16 08/12/16 History Magnesium Hydroxide Susp [Milk of 30 ml PO BID PRN 08/02/16 08/12/16 History Magnesia] Montelukast Sodium 10 mg PO DAILY 08/02/16 08/12/16 History diphenhydrAMINE HCl 25 mg PO BEDTIME PRN 08/02/16 08/12/16 History [diphenhydrAMINE Tab] raNITIdine HCl [Ranitidine HCl] 150 mg PO BID 08/02/16 08/12/16 History Allergies Allergy/AdvReac Type Severity Reaction Status Date / Time tramadol [From Ultram] Allergy RASH Verified 08/02/16 15:44 Medical,Surgical,& Family Hx - Medical History Cardio: History of: Hypertension, Cardiovascular Problems Psychological: History of: Anxiety Disorders, Behavior Problems (verbal aggression aeb using profanity towards children and threatening beha), Bipolar Disorder (Schizoaffective), Depression, Psychiatric/Substance Abuse Tx, Psychiatric Problems (depressed mood aeb irritability, sleep disturbance, loss of energy, social) No history of: Violent Behavior Neurology: History of: Seizures, TIA Endocrine: History of: Dyslipidemia, Thyroid Disorder Rheumatology: History of;: Fibromyalgia Respiratory: History of: Asthma, Bronchitis, COPD, Intubation, Pneumonia, Respiratory Problems (trach 07/04/16) No history of: Obstructive Sleep Apnea, Lung Cancer Renal: History of: Renal Failure (Acute) Gastrointestinal: History of: Diverticulitis/ Diverticulosis, GERD, Hemorrhoids , Polyps, GI Problems Musculoskeletal: History of: Back/Neck Problems (chronic back pain), Degenerative Disk Disease, Musculoskeletal Problems Reproductive: History of: Breast Cancer, Reproductive Cancer (cervical cancer) Other: No history of: Anesthesia Reactions, HIV - Surgical History Abdominal Surgeries: Surgical HX of: Abdominal Surgery, Cholecystectomy Reproductive Surgeries: Surgical HX of;: Breast Surgery, Section, Hysterectomy Orthopedic Surgeries: Surgical HX of;: Orthopedic Surgery (back surgery) - Family History Family History: Reports;: Family Cancer (Father, Siblings), Family Diabetes (Son ), Family Heart Disease (Sister), Family Hypertension - Social History Smoking Status: Current every day smoker Frequency of Alcohol Use: None Type of Drug Use: None Marital Status: Single Lives With:: Alone Functional capacity: independent ambulation 12 point system: reviewed and no additional remarkable complaints except as stated - Respiratory Respiratory: Present: as per HPI, dyspnea, wheezing Exam - Constitutional Exam: Constitutional System: Mild distress. No tremulousness. Head: Normocephalic, atraumatic. Ears, Nose and Throat System: No pain or tenderness. No epistaxis or discharge Eyes System: Pupils equal, round, and reactive. Extraocular muscles intact. Neck: Supple, without adenopathy, No jugular venous distention. No thyromegaly. Respiratory System: Chest diminished breath sounds to auscultation. Scattered wheezing. No rhonchi Cardiovascular System: Heart with regular rate and rhythm. No murmur. GI System: Abdomen soft, nontender. Normo active bowel sounds present. Musculoskeletal System: limbs with no pedal edema. Full distal pulses. Neurological System: No discernable sensory deficit. No aphasia Psychiatric System: Conversation is rational Results - Labs CBC & BMP: 08/12/16 22:08 08/12/16 22:08 Lab Results: I have reviewed the past 24 hour labs - Diagnostic Findings Procedure: Chest x-ray: image reviewed by me, report reviewed by me
[2016-08-13] MEDS: ALBUTEROL/IPRATROPIUM 3 ML NEB RESP TX SCH ×4 (02:42→20:18)
[2016-08-13] MEDS: LEVOTHYROXINE 50 MCG TABLET PO SCH (06:04)
--- NOTE | 2016-08-13 06:56 | XRay Report ---
History: Shortness of breath Date: 08/12/2016 Study: Chest x-ray AP portable Comparison exam: August 11, 2016 The cardiac silhouette is upper normal in size. There is no mediastinal mass. The pulmonary vasculature is not engorged. There is some mild subsegmental atelectatic change in the lung bases. Shallow inspiration. No definite qing pneumonia is identified. There is no gross pleural effusion. The osseous structures are normal. Impression: No significant interval change PROCEDURE INTERPRETED AT [facility] DEPARTMENT OF RADIOLOGY Final Report Signed by: Dr. Trixie Ford
--- NOTE | 2016-08-13 08:14 | Ultrasound Report ---
Exam: Bilateral lower extremity venous Doppler ultrasound Comparison: 06/20/2016 Clinical history: Shortness of breath Technique: Duplex scan of the lower extremity veins using B-mode/grayscale scaled imaging and Doppler spectral analysis and color flow. Findings: Major venous structures of the lower extremities demonstrate a normal course and caliber. Normal color-flow study and spectral analysis. There is normal compression and augmentation of bilateral common femoral, superficial femoral and popliteal veins. The proximal bilateral greater saphenous veins appear to be patent. Impression: No evidence to suggest deep venous thrombosis within either lower extremity. Ultrasound images were captured and stored. PROCEDURE INTERPRETED AT [facility] DEPARTMENT OF RADIOLOGY Final Report Signed by: Dr. Nicole Phillips
[2016-08-13] MEDS: FAMOTIDINE 20 MG TABLET PO SCH ×2 (08:25→20:18)
[2016-08-13] MEDS: DIVALPROEX 500 MG TABLET PO SCH ×2 (08:25→20:18)
[2016-08-13] MEDS: INSULIN REGULAR 100 UNIT/ML SUBCUT SCH ×2 (08:25→23:00)
[2016-08-13] MEDS: MONTELUKAST 10 MG TABLET PO SCH (08:25)
--- NOTE | 2016-08-13 09:00 | EKG Report ---
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
--- NOTE | 2016-08-13 09:00 | Pulmonology Consult Note ---
Assessment and Plan (1) Bipolar disorder Status: Acute Assessment and plan: She is normally on Risperdal. We will get that resumed. Current Visit: Yes (2) Depression Status: Acute Assessment and plan: Related to her bipolar disorder. Current Visit: No (3) COPD with exacerbation Status: Acute Assessment and plan: I do think she is better already. We need to go light on the steroids. Current Visit: No History of Present Illness Chief complaint: Shortness of breath History of present illness: Ms. Mcgill is a 70 year old female This 70-year-old white female has severe COPD. She had an acute exacerbation and was intubated and mechanically ventilated about 6 weeks ago. She required transfer to [facility]. She had a tracheostomy. She was weaned off the ventilator and the tracheostomy was removed. She was just starting to do some physical therapy. She lives alone and it was not felt that she could safely go home. She went to the swing bed. Apparently Saturday she became more short of breath and was transferred back up here. She has been on some steroids and bronchodilators. She does not recall much of what happened the last few days. She is on Risperdal for her manic depressive disorder. She does not think she has had any fever and has not had any purulent sputum. Home Medications Medication Instructions Recorded Confirmed Type OLANZapine [Olanzapine] 10 mg PO BEDTIME 06/20/16 08/12/16 History Glucagon 1 mg IM PRN PRN #0 vial 06/26/16 08/12/16 Rx Acetaminophen 650 mg PO Q6HR PRN MDD 4 gm per 24h 08/02/16 08/12/16 History Albuterol/Ipratropium Neb [Duoneb] 3 ml INH Q6HR PRN 08/02/16 08/12/16 History Albuterol/Ipratropium Neb [Duoneb] 3 ml INH QID 08/02/16 08/12/16 History Dextrose 50% [D50] 50 ml IV PRN PRN 08/02/16 08/12/16 History Digoxin Tab [Lanoxin Tab] 125 mcg PO DAILY 08/02/16 08/12/16 History Divalproex [Depakote] 500 mg PO BID 08/02/16 08/12/16 History Glucose Gel [Glutose 15] 15 gram PO PRN PRN 08/02/16 08/12/16 History Insulin Regular [HumuLIN R] See Protocol SUBCUT BID 08/02/16 08/12/16 History Levothyroxine Sodium 50 mcg PO QAM 08/02/16 08/12/16 History Magnesium Hydroxide Susp [Milk of 30 ml PO BID PRN 08/02/16 08/12/16 History Magnesia] Montelukast Sodium 10 mg PO DAILY 08/02/16 08/12/16 History diphenhydrAMINE HCl 25 mg PO BEDTIME PRN 08/02/16 08/12/16 History [diphenhydrAMINE Tab] raNITIdine HCl [Ranitidine HCl] 150 mg PO BID 08/02/16 08/12/16 History Allergies Allergy/AdvReac Type Severity Reaction Status Date / Time tramadol [From [facility]] Allergy RASH Verified 08/02/16 15:44 12 point system: reviewed and no additional remarkable complaints except as stated - Cardiovascular Cardiovascular: Present: dyspnea, dyspnea on exertion - Respiratory Respiratory: Present: cough, dyspnea, dyspnea on exertion, wheezing - Psychiatric Psychiatric: Present: confusion, memory loss Exam (Pulmonay) H&P - Constitutional Vitals: Period Temp Pulse Resp BP Sys/Martini Pulse Ox Last 24 Hr 97.6 F-98.8 F 86-98 20-24 132-162/72-77 90-96 Exam: Vital signs are normal. O2 sat 95% on 3 L. Pupils react to light. Throat is clear. Neck supple no bruits. The tracheostomy site is healed. Chest reveals prolonged expiratory phase. I do not hear any wheezing. She has some mild expiratory rhonchi. Heart normal rate and rhythm no murmurs. Abdomen soft nontender no masses. Extremities no clubbing cyanosis or edema. Calves nontender. Medical,Surgical,& Family Hx - Medical History Cardio: History of: Hypertension, Cardiovascular Problems Psychological: History of: Anxiety Disorders, Behavior Problems (verbal aggression aeb using profanity towards children and threatening beha), Bipolar Disorder (Schizoaffective), Depression, Psychiatric/Substance Abuse Tx, Psychiatric Problems (depressed mood aeb irritability, sleep disturbance, loss of energy, social) No history of: Violent Behavior Neurology: History of: Seizures, TIA Endocrine: History of: Dyslipidemia, Thyroid Disorder Rheumatology: History of;: Fibromyalgia Respiratory: History of: Asthma, Bronchitis, COPD, Intubation, Pneumonia, Respiratory Problems (trach 07/04/16) No history of: Obstructive Sleep Apnea, Lung Cancer Renal: History of: Renal Failure (Acute) Gastrointestinal: History of: Diverticulitis/ Diverticulosis, GERD, Hemorrhoids , Polyps, GI Problems Musculoskeletal: History of: Back/Neck Problems (chronic back pain), Degenerative Disk Disease, Musculoskeletal Problems Reproductive: History of: Breast Cancer, Reproductive Cancer (cervical cancer) Other: No history of: Anesthesia Reactions, HIV - Surgical History Abdominal Surgeries: Surgical HX of: Abdominal Surgery, Cholecystectomy Reproductive Surgeries: Surgical HX of;: Breast Surgery, Section, Hysterectomy Orthopedic Surgeries: Surgical HX of;: Orthopedic Surgery (back surgery) - Family History Family History: Reports;: Family Cancer (Father, Siblings), Family Diabetes (Son ), Family Heart Disease (Sister), Family Hypertension - Social History Smoking Status: Current every day smoker Frequency of Alcohol Use: None Type of Drug Use: None Results - Labs CBC & BMP: 08/12/16 22:08 08/12/16 22:08 Lab Results: I have reviewed the past 24 hour labs - Diagnostic Findings Procedure: Chest x-ray: image reviewed by me (Minimal scarring right lower lobe unchanged from previous films. No acute infiltrate.)
[2016-08-13] MEDS ORDERED: methylPREDNISolone SOD SUC 40 MG/1 ML VIAL IV SCH ×2 (09:30→12:00)
[2016-08-13] MEDS: DIGOXIN 0.125 MG TABLET PO SCH (14:05)
[2016-08-13] MEDS: ENOXAPARIN 40 MG/0.4 ML SYRINGE SUBCUT SCH (20:19)
[2016-08-13] MEDS ORDERED: OLANZapine 5 MG TABLET PO SCH (21:00)
[2016-08-14] MEDS: ALBUTEROL/IPRATROPIUM 3 ML NEB RESP TX SCH ×4 (01:37→21:10)
[2016-08-14] MEDS: LEVOTHYROXINE 50 MCG TABLET PO SCH (06:19)
--- NOTE | 2016-08-14 08:23 | Pulmonology Progress Note ---
Pulmonary - PN: Subj Interval history: This 70-year-old white female has severe COPD. She had a recent hospitalization with respiratory failure requiring prolonged mechanical ventilation including a tracheostomy. She spent several weeks at [facility]. She improved and had the tracheostomy removed. She was sent to swing bed. She became short of breath over the weekend and was transferred here. She is much better here after a couple of days of IV Solu-Medrol. Also getting nebulized bronchodilators. She also has bipolar disorder. This morning she is feeling better and her lungs sound clear. Oxygen saturations look good. It may be helpful to add Daliresp. If she gets GI side effects it would have to be stopped. I do think she is about ready to return to the swing bed. May want to watch her 1 day on Daliresp to be sure she does not have nausea vomiting etc. Exam (Progress Note) - Constitutional Vitals: Period Temp Pulse Resp BP Sys/Martini Pulse Ox Last 24 Hr 97.1 F-98.3 F 80-101 18-22 135-186/65-97 93-100 Exam: Patient is alert. Vital signs normal. Pupils react to light. Throat is clear. Neck supple no bruits. Chest shows prolonged expiratory phase with no wheezes. Heart normal rate rhythm no murmurs. Abdomen soft nontender no masses. Extremities no clubbing cyanosis or edema. Calves nontender. Results - Labs CBC & BMP: 08/12/16 22:08 08/12/16 22:08 Lab Results: I have reviewed the past 24 hour labs - Diagnostic Findings Procedure: Ultrasound: report reviewed by me (Venous Dopplers were negative) Assessment and Plan (1) Bipolar disorder Status: Acute Assessment and plan: She is normally on Risperdal. We will get that resumed. 08/14/2016 she is on Zyprexa rather than Risperdal and it seems to be working. Current Visit: Yes (2) Depression Status: Acute Assessment and plan: Related to her bipolar disorder. Current Visit: No (3) COPD with exacerbation Status: Acute Assessment and plan: I do think she is better already. We need to go light on the steroids. 08/14/2016 she is improved. Changing to oral prednisone. I am going to add Daliresp. This tends to decrease exacerbations and readmissions. Main side effect is nausea vomiting GI side effects. If she has those it would have to be stopped. Could be return to swing bed tomorrow probably. She still needs a good bit of physical therapy before she could live alone. Current Visit: No
[2016-08-14] MEDS: FAMOTIDINE 20 MG TABLET PO SCH ×2 (09:40→20:05)
[2016-08-14] MEDS: INSULIN REGULAR 100 UNIT/ML SUBCUT SCH ×2 (09:40→23:26)
[2016-08-14] MEDS: ROFLUMILAST 500 MCG TABLET PO SCH (09:40)
[2016-08-14] MEDS: DIVALPROEX 500 MG TABLET PO SCH (09:40)
[2016-08-14] MEDS: predniSONE 20 MG TABLET PO SCH (09:40)
[2016-08-14] MEDS: MONTELUKAST 10 MG TABLET PO SCH (09:40)
--- NOTE | 2016-08-14 11:26 | Hospitalist Progress Note ---
Assessment and Plan (1) COPD with exacerbation Status: Acute Assessment and plan: -Improving continue nebs treatment, steroids, pulm just started daliresp, will watch out for GI symptoms Evaluate for home o2, home health, PT -Hopefully dc in am Current Visit: No (2) Depression Status: Acute Assessment and plan: continue with meds Current Visit: No (3) Bipolar disorder Status: Acute Assessment and plan: stable on meds Current Visit: Yes (4) Hypothyroidism Status: Acute Assessment and plan: will check levels, continue with supplements. Current Visit: Yes (5) Debility Status: Acute Assessment and plan: will consult PT DC planning in progress Current Visit: No (6) HTN (hypertension) Status: Acute Assessment and plan: will start Norvasc 5mg dailt, follow response Current Visit: Yes (7) Seizure Status: Acute Assessment and plan: on Depakote, check levels, seizure precautions Current Visit: Yes Hospitalist: Subjective Interval history: Patient seen. Family state patient has a past history of addiction. Pulm started Darliresp today, wants to watch for a day for nausea, vomiting. Exam - Constitutional Vitals: Period Temp Pulse Resp BP Sys/Martini Pulse Ox Last 24 Hr 97.1 F-98.3 F 80-101 17-22 135-186/65-97 89-100 General appearance: no acute distress - Head Head exam: Present: normal inspection - Respiratory Respiratory exam: Present: clear to auscultation bilaterally - Cardiovascular Cardiovascular exam: Present: regular rate and rhythm - GI/Abdominal GI/Abdominal exam: Present: normal bowel sounds - Extremities Exam Extremities exam: Present: normal inspection Results - Labs CBC & BMP: 08/12/16 22:08 08/12/16 22:08 Lab Results: I have reviewed the past 24 hour labs
[2016-08-14] MEDS: amLODIPine 5 MG TABLET PO SCH (11:46)
[2016-08-14 12:46] LABS: Free T4 (Free Thyroxine) 1.1 NG/DL (0.76-1.46); Thyroid Stimulating Hormone 22.1 uIU/ml (0.358-3.74)
[2016-08-14] MEDS: DIGOXIN 0.125 MG TABLET PO SCH (13:27)
[2016-08-14 14:04] LABS: Apearance,Urine CLEAR (Clear); Bilirubin,Urine Negative (Negative); Blood, Urine Negative (Negative); Glucose,Urine (UA) Negative (Negative); Ketones,Urine 5 mg/dL (Negative); Mucus,Urine Occasional /LPF (Occasional); Nitrite,Urine Negative (Negative); Protein,Urine Negative; RBC,Urine 1 /HPF (0-4); Squamous Epithelial Cell,Urine Occasional /HPF (0-10); Urine Color Straw (Yellow); Urine Specific Gravity 1.006 (1.001-1.035); Urine Urobilinogen < 2.0 EU/DL (0.2-1.0); WBC,Urine <1 /HPF (0-6)
[2016-08-14] MEDS: ENOXAPARIN 40 MG/0.4 ML SYRINGE SUBCUT SCH (20:05)
[2016-08-14] MEDS: risperiDONE 1 MG TABLET PO SCH (20:05)
[2016-08-15] MEDS: ALBUTEROL/IPRATROPIUM 3 ML NEB RESP TX SCH ×3 (01:30→12:46)
[2016-08-15] MEDS: LEVOTHYROXINE 50 MCG TABLET PO SCH (06:16)
[2016-08-15] MEDS ORDERED: LEVOTHYROXINE 75 MCG TABLET PO SCH (06:57)
--- NOTE | 2016-08-15 08:38 | Pulmonology Progress Note ---
Pulmonary - PN: Subj Interval history: This 70-year-old white female has severe COPD. She had a recent hospitalization with respiratory failure requiring prolonged mechanical ventilation including a tracheostomy. She spent several weeks at [facility]. She improved and had the tracheostomy removed. She was sent to swing bed. She became short of breath over the weekend and was transferred here. She is much better here after a couple of days of IV Solu-Medrol. Also getting nebulized bronchodilators. She also has bipolar disorder. This morning she is feeling better and her lungs sound clear. Oxygen saturations look good. It may be helpful to add Daliresp. If she gets GI side effects it would have to be stopped. I do think she is about ready to return to the swing bed. May want to watch her 1 day on Daliresp to be sure she does not have nausea vomiting etc. 08/15/2016 patient is much improved. On oral medications. Can return to swing bed. Her TSH was 22 so I increased her Synthroid from 0.05-0.075 mg daily. She has been on Synthroid long-term. Exam (Progress Note) - Constitutional Vitals: Period Temp Pulse Resp BP Sys/Martini Pulse Ox Last 24 Hr 97.4 F-98.0 F 81-95 18-20 125-153/70-91 89-99 Exam: Patient is alert. Vital signs normal. Pupils react to light. Throat is clear. Neck supple no bruits. Tracheostomy site has healed. Chest shows prolonged expiratory phase with no wheezes. Heart normal rate rhythm no murmurs. Abdomen soft nontender no masses. Extremities no clubbing cyanosis or edema. Calves nontender. Results - Labs CBC & BMP: 08/12/16 22:08 08/12/16 22:08 Lab Results: I have reviewed the past 24 hour labs Assessment and Plan (1) Bipolar disorder Status: Acute Assessment and plan: She is normally on Risperdal. We will get that resumed. 08/14/2016 she is on Zyprexa rather than Risperdal and it seems to be working. 08/15/2016 on appropriate medications. Current Visit: Yes (2) Depression Status: Acute Assessment and plan: Related to her bipolar disorder. Current Visit: No (3) COPD with exacerbation Status: Acute Assessment and plan: I do think she is better already. We need to go light on the steroids. 08/14/2016 she is improved. Changing to oral prednisone. I am going to add Daliresp. This tends to decrease exacerbations and readmissions. Main side effect is nausea vomiting GI side effects. If she has those it would have to be stopped. Could be return to swing bed tomorrow probably. She still needs a good bit of physical therapy before she could live alone. 08/15/2016 she is short of breath with more than minimal effort. But she is about back to her baseline state. Definitely needs physical therapy to regain some strength and stamina. Agree with returning to swing bed. Current Visit: No
[2016-08-15] MEDS ORDERED: LEVOTHYROXINE 25 MCG TABLET PO ONE (08:44)
[2016-08-15] MEDS: predniSONE 20 MG TABLET PO SCH (08:52)
[2016-08-15] MEDS: MONTELUKAST 10 MG TABLET PO SCH (08:52)
[2016-08-15] MEDS: risperiDONE 1 MG TABLET PO SCH (08:52)
[2016-08-15] MEDS: amLODIPine 5 MG TABLET PO SCH (08:52)
[2016-08-15] MEDS: ROFLUMILAST 500 MCG TABLET PO SCH (08:53)
[2016-08-15] MEDS: FAMOTIDINE 20 MG TABLET PO SCH (08:53)
[2016-08-15] MEDS: INSULIN REGULAR 100 UNIT/ML SUBCUT SCH (08:55)
[2016-08-15] MEDS: DIVALPROEX 500 MG TABLET PO SCH (09:40)
--- NOTE | 2016-08-15 10:37 | Discharge Summary ---
<Siri Powellda - Last Filed: 08/15/16 10:56> Hospital Course - Hospital Course Hospital Course: This is a very unfortunate 70 year old female that presented to the ED at [facility] on 08/12 as a transfer from [facility] for evaluation of shortness of breath. The patient has a rather extensive medical history significant for chronic obstructive pulmonary disease , diabetes mellitus, hypertension, hypothyroidism, bipolar disease, and depression. She had a recent hospitalization at [facility] with respiratory failure requiring prolonged mechanical ventilation including a tracheostomy. She was discharged to [facility] for continuation of care in which she spent several weeks there. spent several weeks at [facility].The patient reported the onset of the above symptoms earlier in the day with gradual worsening of her condition. There was concern regarding the patient's living situation; she was then transferred to swing bed. At the time of ED presentation, the patient was have visible difficulty breathing with noted use of accessory muscles and less than favorable oxygen saturations. She was subsequently admitted to the hospitalist service and a pulmonary consult was requested. The patient was aggresively treated with steroids and bronchodilators. Her condition gradually improved. Her condition is stable. Today, we feel that she is indeed appropriate for discharge [facility] for continuation of care. b Discharge Plan - Discharge Data Disposition: Disch/Xfer to Snf - Discharge Medications New Roflumilast [Daliresp] 500 mcg PO DAILY tablet amLODIPine [Norvasc] 5 mg PO DAILY tablet predniSONE TAB [PredniSONE] 40 mg PO DAILY #7 tablet Albuterol/Ipratropium Neb [Duoneb] 3 ml RESP TX RT Q6H Levothyroxine Tab [Synthroid Tab] 75 mcg PO 0700 tablet Continue OLANZapine [Olanzapine] 10 mg PO BEDTIME Glucagon 1 mg IM PRN PRN #0 vial PRN Reason: Hypoglycemia w/o IV access ALPRAZolam [Xanax] 0.5 mg PO Q6H PRN PRN Reason: Anxiety risperiDONE [Risperdal] 1 mg PO BID HYDROcodone/ACETAMIN 5-325 [[place] 5-325] 1 tablet PO Q6H PRN #20 PRN Reason: Pain Moderate (4-7) Glucose Gel [Glutose 15] 15 gram PO PRN PRN PRN Reason: Per Protocol Dextrose 50% [D50] 50 ml IV PRN PRN PRN Reason: Hypoglycemia with IV access Montelukast Sodium 10 mg PO DAILY Insulin Regular [HumuLIN R] See Protocol SUBCUT BID Digoxin Tab [Lanoxin Tab] 125 mcg PO DAILY Acetaminophen 650 mg PO Q6HR PRN MDD 4 gm per 24h PRN Reason: Fever, Headache, Mild Pain Divalproex [Depakote] 500 mg PO BID Magnesium Hydroxide Susp [Milk of Magnesia] 30 ml PO BID PRN PRN Reason: Constipation Albuterol/Ipratropium Neb [Duoneb] 3 ml INH QID Albuterol/Ipratropium Neb [Duoneb] 3 ml INH Q6HR PRN PRN Reason: Shortness Of Breath/Wheezing raNITIdine HCl [Ranitidine HCl] 150 mg PO BID Discontinued diphenhydrAMINE HCl [diphenhydrAMINE Tab] 25 mg PO BEDTIME PRN PRN Reason: Sleep Levothyroxine Sodium 50 mcg PO QAM - Follow Up or Referral - Forms/Instructions Instructions: Bipolar Disorder (DC), Hypothyroidism (DC), Chronic Hypertension (DC) Exam - Constitutional Vitals: Period Temp Pulse Resp BP Sys/Martini Pulse Ox Last 24 Hr 97.5 F-98.0 F 80-99 18-20 124-153/70-88 94-100 Discharge Results Labs on day of discharge: Labs from last 24 hours 08/15/16 08/15/16 08/14/16 11:27 07:07 21:06 POC Glucose 139 H 87 94 Urine Color Urine Appearance Urine pH Ur Specific [place] Urine Protein Urine Glucose (UA) Urine Ketones Urine Blood Urine Nitrate Urine Bilirubin Urine Urobilinogen Urine Leukocytes Urine RBC Urine WBC Ur Squamous Epith Cells Urine Mucus Ur Culture Indicated? 08/14/16 08/14/16 16:39 12:20 POC Glucose 135 H Urine Color Straw Urine Appearance Clear Urine pH 8.0 Ur Specific [place] 1.006 Urine Protein Negative Urine Glucose (UA) Negative Urine Ketones 5 Urine Blood Negative Urine Nitrate Negative Urine Bilirubin Negative Urine Urobilinogen < 2.0 H Urine Leukocytes Negative Urine RBC 1 Urine WBC <1 Ur Squamous Epith Cells Occasional Urine Mucus Occasional Ur Culture Indicated? Not indicated DS: Provider Date of admission: 08/13/16 00:34 Primary care physician: . No PCP Attending physician on admission: Chelsie Davis MD Consults: 08/13/16 03:37 Consult to Occupational Therapy [CONS] Routine Reason for Occupational Therapy: Evaluate and Treat Consult to Physical Therapy [CONS] Routine Reason for Physical Therapy: Evaluate and Treat Start Therapy: Today 08/14/16 10:07 Consult to Case Mgmt/Social Srvs [CONS] Routine Reason for Case Mgmt/Social Srvs: Home Health Consult Comment: Home Health and Physical Therapy 08/14/16 10:09 Consult to Physical Therapy [CONS] Routine Reason for Physical Therapy: Evaluate and Treat Discharging clinician: Kenia Powell CNP <Lidia Woodward - Last Filed: 08/15/16 13:27> Hospital Course - Time spent with patient Time with patient DS: Greater than 30 minutes (time spent : 35mins) Diagnosis - Discharge Diagnosis (1) COPD with exacerbation Status: Acute (2) Depression Status: Acute (3) Bipolar disorder Status: Acute (4) Hypothyroidism Status: Acute (5) Debility Status: Acute (6) HTN (hypertension) Status: Acute (7) Seizure Status: Acute Discharge Plan - Discharge Data Condition at Discharge: Stable Discharge Diet: low salt diet Activity: resume usual activities as tolerated - Forms/Instructions Additional Discharge Instructions: Follow with PCP in 1week Exam - Constitutional General appearance: no acute distress - Head Head exam: Present: normal inspection - Respiratory Respiratory exam: Present: clear to auscultation bilaterally - Cardiovascular Cardiovascular exam: Present: regular rate and rhythm - GI/Abdominal GI/Abdominal exam: Present: normal bowel sounds - Extremities Exam Extremities exam: Present: normal inspection
[2016-08-15 11:34] VITALS: BP 124/77
[2016-08-15] MEDS: DIGOXIN 0.125 MG TABLET PO SCH (14:05)
[2016-08-16] MEDS ORDERED: LEVOTHYROXINE 75 MCG TABLET PO SCH (06:57)
== END 2016-08-15 15:21 | disposition swing bed (61) | DRG 192 ==
LOC: EDUNIT# → EDBD → N.ED 20:30 → SUATTDRO 08-13 00:34 → N.EDINP 08-13 00:34 → N.5E 08-13 01:19
PROVIDERS: ADMIT Family Medicine; ATTEND Internal Medicine

== ENCOUNTER 2016-10-31 15:38 | Inpatient (IN) ==
--- NOTE | 2016-10-31 16:29 | EKG Report ---
Stationary ECG Study [facility] ER Test Date: 10/31/2016 4:09:35 PM Pat Name: MARAL RAE Department: Room: Gender: F [employer] Operator: : 1945 Requested by: Willi Galvan Order Number: [id number] Karen MD: HARRIETT MATHEWS Intervals [place] Rate: 81 P: 76 ME: 140 QRS: 72 QRSD: 76 T: 60 QT: 284 QTc: 321 Interpretive Statements SINUS RHYTHM Electronically Signed On 11-04-16 18:27:05 CDT by HARRIETT MATHEWS [email or web address]
[2016-10-31 16:40] LABS: Basophils # 0.1 10*3/uL (0.0-0.2); Basophils % 0.5 % (0.0-0.8); Eosinophils # 0.1 10*3/uL (0.0-0.87); Eosinophils % 0.9 % (0.00-10.9); Hemoglobin 11.9 GM/DL (12.0-16.0); Immature Granulocytes % 0.8 %; Immature Granulocytes Absolute 0.09 #; Lymphocytes # 1.9 10*3/uL (1.4-4.0); Lymphocytes % 15.8 % (21.3-54.2); Mean Corpuscular HGB Conc 33.1 GM/DL (32-36); Mean Corpuscular Hemoglobin 28 PG (27-34); Mean Corpuscular Volume 85.7 FL (87-102); Mean Platelet Volume 9.9 FL (9.6-12.0); Monocytes # 1.5 10*3/uL (0.11-0.8); Monocytes % 12.6 % (1.7-12.7); Neutrophils # 8.1 10*3/uL (1.4-7.4); Neutrophils % 69.4 % (38.7-73.9); Platelet Count 302 T/CUMM (130-400); Red Cell Distribution Width 15.9 % (9.3-17.3); White Blood Count 11.7 T/CUMM (4-12)
[2016-10-31 17:05] LABS: Alanine Aminotransferase 24 U/L (13-56); Albumin 2.5 G/DL (3.4-5.0); Alkaline Phosphatase 43 U/L (45-117); Aspartate Amino Transferase 52 U/L (0-37); Bilirubin,Total < 0.39 MG/DL (0.2-1.0); Blood Urea Nitrogen 27 MG/DL (7-18); Calcium 8.7 MG/DL (8.5-10.1); Glucose 99 MG/DL (74-106); Magnesium 1.9 MG/DL (1.8-2.4); Osmolality,Calculated 277.8 MOS/KG (273-304); Potassium 4.1 MMOL/L (3.5-5.1); Sodium 137 MMOL/L (136-145); Total Protein 5.8 G/DL (6.4-8.3); Troponin I Only < 0.015 NG/ML (0.00-0.045)
[2016-10-31 17:22] LABS: Apearance,Urine CLEAR (Clear); Bilirubin,Urine Negative (Negative); Blood, Urine Negative (Negative); Glucose,Urine (UA) Negative (Negative); Ketones,Urine 5 mg/dL (Negative); Mucus,Urine Occasional /LPF (Occasional); Nitrite,Urine Negative (Negative); Protein,Urine Negative; RBC,Urine 3 /HPF (0-4); Squamous Epithelial Cell,Urine Occasional /HPF (0-10); Urine Color Yellow (Yellow); Urine Specific Gravity 1.017 (1.001-1.035); Urine Urobilinogen < 2.0 EU/DL (0.2-1.0); WBC,Urine 1 /HPF (0-6)
[2016-10-31] MEDS ORDERED: SODIUM CHLORIDE 0.9% 1,000 ML IV STA (17:25)
--- NOTE | 2016-10-31 17:26 | CT Report ---
CT head/brain wo con Indication: Confusion. Fall. Comparison: None. Technique: CT of the brain was performed without administration of intravenous contrast. The CT examination was performed using one or more of the following dose reduction techniques: Automatic exposure control, adjustment of the mA and kV according to patient size, use of acute or iterative reconstruction techniques. Findings: There is no evidence of acute intracranial mass, hemorrhage, or infarction. Generalized cerebral atrophy is present. Areas of decreased attenuation within the periventricular white matter and cerebral white matter are present which could be compatible with microvascular ischemia. The basal cisterns are patent. No significant abnormality is demonstrated to involve the posterior fossa or cerebellum. Orbits and globes demonstrate no evidence of significant pathology. The paranasal sinuses are clear. No significant abnormality is demonstrated to involve the mastoid air cells. The calvarium and overlying soft tissues demonstrate no evidence of acute pathology. Impression: 1. No CT evidence of acute intracranial pathology. Generalized atrophy and findings compatible with microvascular ischemia. Stable. 10/31/2016 5:06 PM PROCEDURE INTERPRETED AT [facility] DEPARTMENT OF RADIOLOGY Final Report Signed by: Dr. Padilla Calderon
--- NOTE | 2016-10-31 17:26 | XRay Report ---
XR chest 1V portable Indication: Shortness of breath Comparison: Chest x-ray 08/12/2016 Technique: Portable AP chest was performed. Findings: Airspace opacities left lung base and parenchymal stranding left cardiophrenic angle compatible with infection are present. A component of atelectasis is not excluded. Minimal blunting of the left costophrenic angle additionally is present. Chest is otherwise unremarkable. Impression: 1. Infectious process left lung base and/or atelectasis of the left lung base could be considered. A small left-sided pleural effusion is not excluded. Follow-up is recommended. 10/31/2016 5:05 PM PROCEDURE INTERPRETED AT [facility] DEPARTMENT OF RADIOLOGY Final Report Signed by: Dr. Padilla Calderon
[2016-10-31 17:32] LABS: Barbiturates Screen,Urine Negative (Negative); Benzodiazepines Screen,Urine Negative (Negative); Cannabinoid Screen,Urine Negative (Negative); Opiate Screen,Urine Negative (Negative); Phencyclidine Screen,Urine Negative (Negative)
[2016-10-31] MEDS ORDERED: LEVOFLOXACIN INJ 750 MG in PREMIX 1 EACH IV STA (17:51)
[2016-10-31] MEDS ORDERED: LEVOFLOXACIN INJ 150 ML IV ONE (17:53)
--- NOTE | 2016-10-31 18:02 | Emergency Department Note ---
Nelson Mathew Brittany, am scribing for, and in the presence of, Willi Brantlye MD 16:11. Fercho Mathew Phillip K, MD, personally performed the services described in this documentation, ascribed by Wendi Damon in my presence, and it is both accurate and complete [id number] . Arrival - Arrival Chief Complaint: Shortness of Breath Stated Complaint: trouble breathing,weakness ED Nursing Triage Note: pt to triage via wc with family with c/o having sob with weakness, confusion, states onset this saturday. pt denies any chest pain.... Mode of Arrival: Wheelchair Limitations: No Limitations Source: Patient, RN Notes Reviewed Time Seen by Provider: 10/31/16 16:02 - History of Present Illness HPI Narrative: Patient is a 71 y/o white female presenting to the ED with c/o SOB which onset today. Patient does not state much while in room, just says yes or no, so history will be provided by family at the bedside. Family states that she first noticed patient getting weak on Saturday when patient slid off of the couch, onto the floor on her face. Patient was not able to reach her life-alert button, so family found her sometime later that day. Patient by the next day was not as weak, and was able to walk with a walker. Today patient was severely weaker and notably had some hematuria and family is concerned for possible UTI. Denies patient having any fever. Patient has had a non-productive cough as well. Patient has not taken any medications that would attribute to her recent increase in weakness. Patient does have a hx of COPD. PMHx HTN, Anxiety Disorders, Behavior Problems, Bipolar Disorder, Psychiatric/Substance Abuse Tx, Depression, Seizures, TIA, Thyroid Disorder, NIDDM, Asthma, Bronchitis, COPD, Pneumonia, Renal Failure, Diverticulitis, GERD, Hemorrhoids, Polyps, Amputation , Degenerative Disk Disease, Breast CA, Reproductive CA. Allergies/Adverse Reactions: Allergies Allergy/AdvReac Type Severity Reaction Status Date / Time tramadol [From Ultram] Allergy RASH Verified 10/31/16 15:53 Home Medications: Home Medications Medication Instructions Recorded Confirmed Type Acetaminophen 650 mg PO Q6HR PRN MDD 4 gm per 24h 08/02/16 10/31/16 History Albuterol/Ipratropium Neb [Duoneb] 3 ml INH Q6HR PRN 08/02/16 10/31/16 History Albuterol/Ipratropium Neb [Duoneb] 3 ml INH QID 08/02/16 10/31/16 History Digoxin Tab [Lanoxin Tab] 125 mcg PO QAM 08/02/16 10/31/16 History Divalproex [Depakote] 500 mg PO BID 08/02/16 10/31/16 History Magnesium Hydroxide Susp [Milk of 30 ml PO BID PRN 08/02/16 10/31/16 History Magnesia] Montelukast Sodium 10 mg PO QAM 08/02/16 10/31/16 History raNITIdine HCl [Ranitidine HCl] 150 mg PO BID 08/02/16 10/31/16 History Levothyroxine Tab [Synthroid Tab] 75 mcg PO 0700 tablet 08/15/16 10/31/16 Rx Aclidinium [place] [Tudorza 1 puff INH BID 10/31/16 10/31/16 History Pressair] Paliperidone Palmitate [Invega 156 mg IM Q28D 10/31/16 10/31/16 History Sustenna] Roflumilast [Daliresp] 500 mcg PO QAM 10/31/16 10/31/16 History amLODIPine [Norvasc] 5 mg PO QAM 10/31/16 10/31/16 History Review of System - Review of System 12 point system: reviewed and no additional remarkable complaints except as stated - Review of System Constitutional: Present: weakness Respiratory: Present: cough, respiratory distress Cardiovascular: Absent: chest pain Gastrointestinal: Absent: abdominal pain, nausea, vomiting Genitourinary female: Present: hematuria. Absent: dysuria, frequency, urgency Musculoskeletal: Absent: arm pain, back pain, leg pain, neck pain Neurological: Present: confusion. Absent: headache Psychiatric: Absent: anxiety, depression Medical,Surgical,& Family Hx - Medical History Cardio: History of: Hypertension, Cardiovascular Problems Psychological: History of: Anxiety Disorders, Behavior Problems (verbal aggression aeb using profanity towards children and threatening beha), Bipolar Disorder (Schizoaffective), Depression, Psychiatric/Substance Abuse Tx, Psychiatric Problems (depressed mood aeb irritability, sleep disturbance, loss of energy, social) No history of: Violent Behavior Neurology: History of: Seizures, TIA Endocrine: History of: Diabetes Mellitus (NIDDM), Dyslipidemia, Thyroid Disorder Rheumatology: History of;: Fibromyalgia Respiratory: History of: Asthma, Bronchitis, COPD, Intubation, Pneumonia, Respiratory Problems (trach 07/04/16) No history of: Obstructive Sleep Apnea, Lung Cancer Renal: History of: Renal Failure (Acute) Gastrointestinal: History of: Diverticulitis/ Diverticulosis, GERD, Hemorrhoids , Polyps, GI Problems Musculoskeletal: History of: Amputation, Back/Neck Problems (chronic back pain) , Degenerative Disk Disease, Musculoskeletal Problems Reproductive: History of: Breast Cancer, Reproductive Cancer (cervical cancer) Other: No history of: Anesthesia Reactions, HIV - Surgical History Abdominal Surgeries: Surgical HX of: Abdominal Surgery, Cholecystectomy Reproductive Surgeries: Surgical HX of;: Breast Surgery, Section, Gynecologic Surgery, Hysterectomy Orthopedic Surgeries: Surgical HX of;: Orthopedic Surgery (back surgery) - Family History Family History: Reports;: Family Cancer (Father, Siblings), Family Diabetes (Son ), Family Heart Disease (Sister), Family Hypertension - Social History Smoking Status: Former smoker Frequency of Alcohol Use: None Type of Drug Use: None Exam Vital Signs: Vital Signs Temperature 98.0 F 10/31/16 16:18 Pulse Rate 89 10/31/16 16:45 Respiratory Rate 20 10/31/16 16:45 Blood Pressure 126/76 10/31/16 16:45 O2 Sat by Pulse Oximetry 94 L 10/31/16 16:45 - General General appearance: alert, in no apparent distress - Head Head exam: Present: normocephalic. Absent: atraumatic (hematoma and abrasion noted to the R periorbital area) - Eye Eye exam: Present: normal appearance, PERRL, EOMI - ENT ENT exam: Present: mucous membranes dry. Absent: mucous membranes moist - Neck Neck exam: Present: normal inspection, full ROM, trachea midline - Chest Chest inspection: Present: normal inspection, symmetric chest wall rise - Respiratory Respiratory exam: Present: rales (L base). Absent: normal lung sounds bilaterally - Cardiovascular Cardiovascular exam: Present: regular rate, normal rhythm, normal heart sounds - Abdominal Exam Abdominal exam: Present: soft, normal bowel sounds. Absent: tenderness - Extremities Exam Extremities exam: Present: pedal edema (2+ Right 1+ Left). Absent: normal inspection (abrasions to bilateral knees) - Back Exam Back exam: Present: normal inspection - Neurological Exam Neurological exam: Present: alert, oriented X3, CN II-XII intact. Absent: motor sensory deficit - Psychiatric Psychiatric exam: Present: normal affect, normal mood - Skin Skin exam: Present: warm, dry Results - Labs CBC & BMP: 10/31/16 16:12 10/31/16 16:12 Lab Results: I have reviewed the patients labs Labs: Laboratory Tests 10/31/16 16:12 WBC 11.7 RBC 4.20 Hgb 11.9 L Hct 36.0 MCV 85.7 L Plt Count 302 Lymph % (Auto) 15.8 L Neut # (Auto) 8.1 H Stokes # (Auto) 1.5 H Laboratory Tests 10/31/16 16:12 WBC 11.7 RBC 4.20 Hgb 11.9 L Hct 36.0 MCV 85.7 L Plt Count 302 Lymph % (Auto) 15.8 L Neut # (Auto) 8.1 H Stokes # (Auto) 1.5 H Laboratory Tests 10/31/16 10/31/16 16:12 16:12 WBC 11.7 RBC 4.20 Hgb 11.9 L Hct 36.0 MCV 85.7 L Plt Count 302 Lymph % (Auto) 15.8 L Neut # (Auto) 8.1 H Stokes # (Auto) 1.5 H Sodium 137 Potassium 4.1 Chloride 100 Carbon Dioxide 29 BUN 27 H Creatinine 0.50 L BUN/Creatinine Ratio 54.00 H Total Bilirubin < 0.39 AST 52 H Alkaline Phosphatase 43 L Troponin I < 0.015 Total Protein 5.8 L Albumin 2.5 L Albumin/Globulin Ratio 0.7 L Laboratory Tests 10/31/16 16:12 B-Natriuretic Peptide 65 Laboratory Tests 10/31/16 16:12 Urine Color Yellow Urine Appearance Clear Urine pH 6.0 Ur Specific [place] 1.017 Urine Protein Negative Urine Glucose (UA) Negative Urine Ketones 5 Urine Blood Negative Urine Nitrate Negative Urine Bilirubin Negative Urine Urobilinogen < 2.0 H Urine Leukocytes Negative Urine RBC 3 Urine WBC 1 Ur Squamous Epith Cells Occasional Urine Mucus Occasional Laboratory Tests 10/31/16 16:12 Urine Opiates Screen Negative Ur Barbiturates Screen Negative Ur Phencyclidine Scrn Negative U Amphetamine/Methamph Negative U Benzodiazepines Scrn Negative U Cocaine Metab Screen Negative U Cannabinoids Screen Negative - EKG EKG results: interpreted by ERMD, sinus rhythm (Nonspecific ST-T changes) - Diagnostic Findings Procedure: Chest x-ray: report reviewed by me (Pneumonia left base) Disposition Clinical Impression: Left basilar pneumonia Case discussed with: patient Disposition: Still a Patient Additional Instructions: Patient discussed with Dr. Her who will admit for IV antibiotics.
[2016-10-31] MEDS ORDERED: ACETAMINOPHEN 325 MG TABLET PO PRN (18:26)
[2016-10-31] MEDS ORDERED: ONDANSETRON 4 MG/2 ML VIAL IV PRN (18:26)
[2016-10-31] MEDS ORDERED: ALBUTEROL 2.5 MG/3 ML NEB RESP TX PRN (18:26)
[2016-10-31] MEDS: ALBUTEROL/IPRATROPIUM 3 ML NEB RESP TX SCH (19:06)
--- NOTE | 2016-10-31 19:06 | Hospitalist History & Physical ---
Assessment and Plan (1) Pneumonia Status: Acute Current Visit: Yes (2) COPD (chronic obstructive pulmonary disease) Status: Acute Current Visit: No Qualifiers: COPD type: COPD with acute exacerbation Qualified Code(s): J44.1 - Chronic obstructive pulmonary disease with (acute) exacerbation (3) Depression Status: Acute Current Visit: No (4) Depression, major, recurrent, severe with psychosis Status: Acute Current Visit: No (5) Acute on chronic respiratory failure Status: Acute Current Visit: No (6) Bipolar disorder Status: Acute Current Visit: No (7) HTN (hypertension) Status: Acute Assessment and plan: We will admit patient our service. Will schedule schedule breathing treatments put her on low-dose steroids and IV antibiotics. Continue home meds as appropriate. She has had a very complicated course in the past with lung infections will consult her milk hauler for assistance Current Visit: No History of Present Illness Chief complaint: Generalized weakness History of present illness: Ms. Mcgill is a 71 year old female with past medical history significant for hypertension, COPD, asthma, increased cholesterol and schizoaffective disorder with depression who is her normal state of health for the past 3 days. Patient' s family reports that she has just been generally weak and has not been able to really care for herself. She has a chronic cough that overall is gotten better but it did seem like it was getting a little worse today. Family denies fever. She came up to our hospital for further evaluation. Patient diagnosed with a lower lobe pneumonia per chest x-ray I was consulted to admit her Home Medications Medication Instructions Recorded Confirmed Type Acetaminophen 650 mg PO Q6HR PRN MDD 4 gm per 24h 08/02/16 10/31/16 History Albuterol/Ipratropium Neb [Duoneb] 3 ml INH Q6HR PRN 08/02/16 10/31/16 History Albuterol/Ipratropium Neb [Duoneb] 3 ml INH QID 08/02/16 10/31/16 History Digoxin Tab [Lanoxin Tab] 125 mcg PO QAM 08/02/16 10/31/16 History Divalproex [Depakote] 500 mg PO BID 08/02/16 10/31/16 History Magnesium Hydroxide Susp [Milk of 30 ml PO BID PRN 08/02/16 10/31/16 History Magnesia] Montelukast Sodium 10 mg PO QAM 08/02/16 10/31/16 History raNITIdine HCl [Ranitidine HCl] 150 mg PO BID 08/02/16 10/31/16 History Levothyroxine Tab [Synthroid Tab] 75 mcg PO 0700 tablet 08/15/16 10/31/16 Rx Aclidinium [place] [Tudorza 1 puff INH BID 10/31/16 10/31/16 History Pressair] Paliperidone Palmitate [Invega 156 mg IM Q28D 10/31/16 10/31/16 History Sustenna] Roflumilast [Daliresp] 500 mcg PO QAM 10/31/16 10/31/16 History amLODIPine [Norvasc] 5 mg PO QAM 10/31/16 10/31/16 History Allergies Allergy/AdvReac Type Severity Reaction Status Date / Time tramadol [From Ultram] Allergy RASH Verified 10/31/16 15:53 Medical,Surgical,& Family Hx - Medical History Cardio: History of: Hypertension, Cardiovascular Problems Psychological: History of: Anxiety Disorders, Behavior Problems (verbal aggression aeb using profanity towards children and threatening beha), Bipolar Disorder (Schizoaffective), Depression, Psychiatric/Substance Abuse Tx, Psychiatric Problems (depressed mood aeb irritability, sleep disturbance, loss of energy, social) No history of: Violent Behavior Neurology: History of: Seizures, TIA Endocrine: History of: Diabetes Mellitus (NIDDM), Dyslipidemia, Thyroid Disorder Rheumatology: History of;: Fibromyalgia Respiratory: History of: Asthma, Bronchitis, COPD, Intubation, Pneumonia, Respiratory Problems (trach 07/04/16) No history of: Obstructive Sleep Apnea, Lung Cancer Renal: History of: Renal Failure (Acute) Gastrointestinal: History of: Diverticulitis/ Diverticulosis, GERD, Hemorrhoids , Polyps, GI Problems Musculoskeletal: History of: Amputation, Back/Neck Problems (chronic back pain) , Degenerative Disk Disease, Musculoskeletal Problems Reproductive: History of: Breast Cancer, Reproductive Cancer (cervical cancer) Other: No history of: Anesthesia Reactions, HIV - Surgical History Abdominal Surgeries: Surgical HX of: Abdominal Surgery, Cholecystectomy Reproductive Surgeries: Surgical HX of;: Breast Surgery, Section, Gynecologic Surgery, Hysterectomy Orthopedic Surgeries: Surgical HX of;: Orthopedic Surgery (back surgery) - Family History Family History: Reports;: Family Cancer (Father, Siblings), Family Diabetes (Son ), Family Heart Disease (Sister), Family Hypertension - Social History Smoking Status: Former smoker Frequency of Alcohol Use: None Type of Drug Use: None 12 point system: reviewed and no additional remarkable complaints except as stated Exam - Constitutional Vitals: Period Temp Pulse Resp BP Sys/Martini Pulse Ox Last 24 Hr 98.0 F-98.0 F 89-102 17-20 108-155/75-80 94-95 - General General appearance: alert, in no apparent distress - Head Head exam: Present: normocephalic. - Eye Eye exam: Present: normal appearance, PERRL, EOMI - ENT ENT exam: Present: mucous membranes dry. - Neck Neck exam: Present: normal inspection, full ROM, trachea midline - Chest Chest inspection: Present: normal inspection, symmetric chest wall rise - Respiratory Respiratory exam: Present: Coarse breath sounds with rhonchi on the lower base of the left lung - Cardiovascular Cardiovascular exam: Present: regular rate, normal rhythm, normal heart sounds - Abdominal Exam Abdominal exam: Present: soft, normal bowel sounds. Absent: tenderness - Extremities Exam Extremities exam: Present: pedal edema (2+ Right 1+ Left). - Back Exam Back exam: Present: normal inspection - Neurological Exam Neurological exam: Present: alert, oriented X3, CN II-XII intact. - Psychiatric Psychiatric exam: Present: normal affect, normal mood - Skin Skin exam: Present: warm, dry Results - Labs CBC & BMP: 10/31/16 16:12 10/31/16 16:12
[2016-10-31] MEDS ORDERED: MAGNESIUM HYDROXIDE SUSP 30 ML UDCUP PO PRN (20:24)
[2016-10-31] MEDS ORDERED: ACLIDINIUM BROMIDE INH SCH (21:00)
[2016-10-31] MEDS ORDERED: RANITIDINE 150 MG TABLET PO SCH (21:00)
[2016-10-31] MEDS: ENOXAPARIN 40 MG/0.4 ML SYRINGE SUBCUT SCH (21:35)
[2016-10-31] MEDS: DIVALPROEX 250 MG TABLET PO SCH (21:37)
[2016-11-01] MEDS: ALBUTEROL/IPRATROPIUM 3 ML NEB RESP TX SCH ×4 (00:20→19:05)
[2016-11-01 05:41] LABS: Basophils % 0.4 % (0.0-0.8); Eosinophils % 0.4 % (0.00-10.9); Hematocrit 32.2 VOL% (35.7-47.0); Hemoglobin 10.7 GM/DL (12.0-16.0); Immature Granulocytes % 0.8 %; Immature Granulocytes Absolute 0.06 #; Lymphocytes # 1.4 10*3/uL (1.4-4.0); Lymphocytes % 18.5 % (21.3-54.2); Mean Corpuscular HGB Conc 33.2 GM/DL (32-36); Mean Corpuscular Hemoglobin 28 PG (27-34); Mean Corpuscular Volume 84.7 FL (87-102); Mean Platelet Volume 10.4 FL (9.6-12.0); Monocytes # 1.1 10*3/uL (0.11-0.8); Monocytes % 14.6 % (1.7-12.7); Neutrophils # 4.9 10*3/uL (1.4-7.4); Neutrophils % 65.3 % (38.7-73.9); Platelet Count 312 T/CUMM (130-400); Red Cell Distribution Width 15.9 % (9.3-17.3); White Blood Count 7.5 T/CUMM (4-12)
[2016-11-01 06:20] LABS: Albumin 2.2 G/DL (3.4-5.0); Bilirubin,Total 0.9 MG/DL (0.2-1.0); Calcium 8.2 MG/DL (8.5-10.1); Osmolality,Calculated 274.8 MOS/KG (273-304); Total Protein 5.3 G/DL (6.4-8.3)
--- NOTE | 2016-11-01 08:17 | Pulmonology Consult Note ---
Assessment and Plan (1) Hypothyroidism Status: Chronic Assessment and plan: Patient's Synthroid was increased to dose of 0.075 mg daily last admission. Will check TSH. Current Visit: No (2) COPD with exacerbation Status: Acute Assessment and plan: Oxygen saturation looks okay. Continue with low flow nasal oxygen. She requires it long-term. She has chronic respiratory failure with hypoxemia with an acute exacerbation. Empiric antibiotics. 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 Current Visit: No (3) Acute on chronic respiratory failure Status: Acute Assessment and plan: Continuing with nasal oxygen for chronic hypoxemic respiratory failure with acute exacerbation Current Visit: No (4) Bipolar disorder Status: Acute Assessment and plan: She is on Keppra. Need to resume her in [place] if we can get it. If not may want to use Zyprexa or get psychiatric consult. Current Visit: No (5) Pneumonia Status: Acute Assessment and plan: Left basilar pneumonia. Has a history of thick secretions in the past requiring bronchoscopy. Will add mucolytics. Current Visit: Yes History of Present Illness Chief complaint: Weakness cough fever History of present illness: Ms. Mcgill is a 71 year old female who has a history of bipolar disorder and COPD. She has had hospitalizations earlier this year both at [facility] and at [facility]. She had a prolonged episode with mechanical ventilation back in May of this year. Had a tracheostomy that was subsequently removed. She went to a swing bed and then was readmitted for a couple of days. She has been at home. Apparently she lives by herself. She was found on the floor by her family. She was somewhat confused and weak yesterday and was found to have a left basilar infiltrate on x-ray. He is a former smoker. I do not think she is smoking now. She has oxygen at home. She is on Invega, which is an antipsychotic drug, and Depakote for her bipolar disorder. I do not see where the inVega was continued on admission. Home Medications Medication Instructions Recorded Confirmed Type Acetaminophen 650 mg PO Q6HR PRN MDD 4 gm per 24h 08/02/16 10/31/16 History Albuterol/Ipratropium Neb [Duoneb] 3 ml INH Q6HR PRN 08/02/16 10/31/16 History Albuterol/Ipratropium Neb [Duoneb] 3 ml INH QID 08/02/16 10/31/16 History Digoxin Tab [Lanoxin Tab] 125 mcg PO QAM 08/02/16 10/31/16 History Divalproex [Depakote] 500 mg PO BID 08/02/16 10/31/16 History Magnesium Hydroxide Susp [Milk of 30 ml PO BID PRN 08/02/16 10/31/16 History Magnesia] Montelukast Sodium 10 mg PO QAM 08/02/16 10/31/16 History raNITIdine HCl [Ranitidine HCl] 150 mg PO BID 08/02/16 10/31/16 History Levothyroxine Tab [Synthroid Tab] 75 mcg PO 0700 tablet 08/15/16 10/31/16 Rx Aclidinium [place] [Tudorza 1 puff INH BID 10/31/16 10/31/16 History Pressair] Paliperidone Palmitate [Invega 156 mg IM Q28D 10/31/16 10/31/16 History Sustenna] Roflumilast [Daliresp] 500 mcg PO QAM 10/31/16 10/31/16 History amLODIPine [Norvasc] 5 mg PO QAM 10/31/16 10/31/16 History Allergies Allergy/AdvReac Type Severity Reaction Status Date / Time tramadol [From Ultram] Allergy RASH Verified 10/31/16 15:53 ROS unobtainable: due to mental status Exam (Pulmonay) H&P - Constitutional Vitals: Period Temp Pulse Resp BP Sys/Martini Pulse Ox Last 24 Hr 97.8 F-99.9 F 87-105 17-22 104-155/58-80 92-99 Exam: Temperature 99.9. Patient is responsive but somewhat confused. There is abrasion on her right forehead. Pupils react to light. Throat is clear. Neck supple no bruits. Tracheostomy scar is well-healed. Chest reveals some rales in the bases mostly the left base. Prolonged expiratory phase and a few scattered wheezes. Heart normal rate and rhythm no murmurs. Abdomen soft nontender no masses. Bowel sounds present. Extremities no clubbing cyanosis or edema. Calves nontender. Medical,Surgical,& Family Hx - Medical History Cardio: History of: Hypertension, Cardiovascular Problems Psychological: History of: Anxiety Disorders, Behavior Problems (verbal aggression aeb using profanity towards children and threatening beha), Bipolar Disorder (Schizoaffective), Depression, Psychiatric/Substance Abuse Tx, Psychiatric Problems (depressed mood aeb irritability, sleep disturbance, loss of energy, social) No history of: Violent Behavior Neurology: History of: Seizures, TIA Endocrine: History of: Diabetes Mellitus (NIDDM), Dyslipidemia, Thyroid Disorder Rheumatology: History of;: Fibromyalgia Respiratory: History of: Asthma, Bronchitis, COPD, Intubation, Pneumonia, Respiratory Problems (trach 07/04/16) No history of: Obstructive Sleep Apnea, Lung Cancer Renal: History of: Renal Failure (Acute) Gastrointestinal: History of: Diverticulitis/ Diverticulosis, GERD, Hemorrhoids , Polyps, GI Problems Musculoskeletal: History of: Amputation, Back/Neck Problems (chronic back pain) , Degenerative Disk Disease, Musculoskeletal Problems Reproductive: History of: Breast Cancer, Reproductive Cancer (cervical cancer) Other: No history of: Anesthesia Reactions, HIV - Surgical History Abdominal Surgeries: Surgical HX of: Abdominal Surgery, Cholecystectomy Reproductive Surgeries: Surgical HX of;: Breast Surgery, Section, Gynecologic Surgery, Hysterectomy Orthopedic Surgeries: Surgical HX of;: Orthopedic Surgery (back surgery) - Family History Family History: Reports;: Family Cancer (Father, Siblings), Family Diabetes (Son ), Family Heart Disease (Sister), Family Hypertension - Social History Smoking Status: Former smoker Frequency of Alcohol Use: None Type of Drug Use: None Results - Labs CBC & BMP: 11/01/16 05:09 11/01/16 05:09 Lab Results: I have reviewed the past 24 hour labs - Diagnostic Findings Procedure: Chest x-ray: image reviewed by me (Left basilar infiltrate. May be a subpulmonic effusion.) Specialty Discharge - Follow Up or Referrals
[2016-11-01] MEDS: LEVOTHYROXINE 75 MCG TABLET PO SCH (08:46)
[2016-11-01] MEDS: MONTELUKAST 10 MG TABLET PO SCH (08:46)
[2016-11-01] MEDS: PANTOPRAZOLE 40 MG TABLET PO SCH (08:46)
[2016-11-01] MEDS: DIGOXIN 0.125 MG TABLET PO SCH (08:47)
[2016-11-01] MEDS: FAMOTIDINE 20 MG TABLET PO SCH (08:47)
[2016-11-01] MEDS: amLODIPine 5 MG TABLET PO SCH (08:48)
[2016-11-01] MEDS: ROFLUMILAST 500 MCG TABLET PO SCH (08:48)
[2016-11-01] MEDS: DIVALPROEX 250 MG TABLET PO SCH ×2 (08:48→21:22)
[2016-11-01] MEDS: MEROPENEM 1,000 MG in SODIUM CHLORIDE 0.9% 100 ML IV SCH ×2 (08:53→21:21)
[2016-11-01] MEDS ORDERED: predniSONE 20 MG TABLET PO SCH (09:00)
[2016-11-01] MEDS ORDERED: PALIPERIDONE PALMITATE 156 MG IM SCH (09:30)
--- NOTE | 2016-11-01 17:23 | Hospitalist Progress Note ---
Assessment and Plan (1) COPD (chronic obstructive pulmonary disease) Status: Acute Current Visit: No Qualifiers: COPD type: COPD with acute exacerbation Qualified Code(s): J44.1 - Chronic obstructive pulmonary disease with (acute) exacerbation (2) Depression, major, recurrent, severe with psychosis Status: Acute Current Visit: No (3) Bipolar disorder Status: Acute Current Visit: No (4) Hypothyroidism Status: Acute Current Visit: No (5) Pneumonia Status: Acute Assessment and plan: Pulmonary assisting Levjv and codie Bowden, low dose steroids Current Visit: Yes Hospitalist: Subjective Interval history: No acute events. She is without complaints. Says that her breathing is fine. Exam - Constitutional Vitals: Period Temp Pulse Resp BP Sys/Martini Pulse Ox Last 24 Hr 97.2 F-99.9 F 79-105 16-22 104-155/58-80 91-99 General appearance: over weight - Head Head exam: Present: normocephalic, atraumatic - Eye Eye exam: Present: EOMI Pupils: Present: JHONNY - ENT ENT exam: Present: normal exam - Neck Neck exam: Present: normal inspection - Respiratory Respiratory exam: Present: clear to auscultation bilaterally. Absent: wheezes - Cardiovascular Cardiovascular exam: Present: regular rate and rhythm - GI/Abdominal GI/Abdominal exam: Present: normal bowel sounds, soft. Absent: tenderness, rebound - Extremities Exam Extremities exam: Present: normal inspection - Back Exam Back exam: Present: normal inspection - Neurological Exam Neurological exam: Present: alert, oriented X3 - Psychiatric Psychiatric exam: Present: flat affect. Absent: agitated - Skin Skin exam: Present: warm, intact Results - Labs CBC & BMP: 11/01/16 05:09 11/01/16 05:09 Specialty Discharge - Follow Up or Referrals
[2016-11-01] MEDS: LEVOFLOXACIN INJ 750 MG in PREMIX 1 EACH IV SCH (17:32)
[2016-11-01] MEDS: ENOXAPARIN 40 MG/0.4 ML SYRINGE SUBCUT SCH (17:32)
[2016-11-01] MEDS: DORNASE ALFA 2.5 MG/2.5 ML VIAL RESP TX SCH (19:05)
[2016-11-02] MEDS: ALBUTEROL/IPRATROPIUM 3 ML NEB RESP TX SCH ×4 (00:30→19:11)
[2016-11-02 06:00] LABS: Basophils % 0.3 % (0.0-0.8); Eosinophils % 0.5 % (0.00-10.9); Hematocrit 31.4 VOL% (35.7-47.0); Hemoglobin 10.4 GM/DL (12.0-16.0); Immature Granulocytes % 0.8 %; Immature Granulocytes Absolute 0.06 #; Lymphocytes # 1.9 10*3/uL (1.4-4.0); Lymphocytes % 24.9 % (21.3-54.2); Mean Corpuscular HGB Conc 33.1 GM/DL (32-36); Mean Corpuscular Hemoglobin 28 PG (27-34); Mean Corpuscular Volume 84.4 FL (87-102); Mean Platelet Volume 10.2 FL (9.6-12.0); Monocytes # 1.2 10*3/uL (0.11-0.8); Monocytes % 16.2 % (1.7-12.7); Neutrophils # 4.3 10*3/uL (1.4-7.4); Neutrophils % 57.3 % (38.7-73.9); Platelet Count 277 T/CUMM (130-400); Red Blood Count 3.72 MC/CUMM (3.8-5.5); Red Cell Distribution Width 15.7 % (9.3-17.3); White Blood Count 7.5 T/CUMM (4-12)
[2016-11-02 06:27] LABS: Calcium 7.9 MG/DL (8.5-10.1); Magnesium 1.9 MG/DL (1.8-2.4); Osmolality,Calculated 267.2 MOS/KG (273-304); Potassium 3.9 MMOL/L (3.5-5.1)
[2016-11-02 06:28] LABS: Band Neutrophils 1 % (0-10); Lymphocytes 20 % (20-55); Segmented Neutrophils 68 % (50-85); Total Cells Counted 100
[2016-11-02 06:29] LABS: Giant Platelets Few; Hypochromasia 1+; Platelet Estimate Adequate
--- NOTE | 2016-11-02 07:08 | XRay Report ---
Exam: XR chest 1V portable Date: 11/02/2016 4:00 AM Indication: Pneumonia Comparison: 10/31/2016 Technical: AP Findings: Low volume left effusion present. Mild prominence the cardiac silhouette. ASVD is present. The mediastinum is otherwise intact. A few reticular densities are present. Some patchy density present in the right infrahilar region also present. Oxygen tubing is noted. Impression: 1. Bibasilar pneumonic infiltrates and associated small left parapneumonic effusion also present PROCEDURE INTERPRETED AT [facility] DEPARTMENT OF RADIOLOGY Final Report Signed by: Dr. Kev Carter
--- NOTE | 2016-11-02 07:11 | Pulmonology Progress Note ---
Pulmonary - PN: Subj Interval history: 71-year-old white female with bipolar disorder that has a left lower lobe pneumonia. She is not running any fever. She sounds a little better today. She is somewhat confused. She is not getting her long-acting antipsychotic medications as yet. If she cannot get the Invega then we should go with Zyprexa 20 mg daily until it comes in. Will defer to primary service on this 1. May want to get a psychiatric consult. Exam (Progress Note) - Constitutional Vitals: Period Temp Pulse Resp BP Sys/Martini Pulse Ox Last 24 Hr 97.2 F-99.0 F 71-108 16-20 102-132/52-68 91-99 Exam: Patient is responsive. Somewhat confused. Asking for help. Vital signs normal. Pupils react to light. Throat is clear. Neck supple bruits. Chest reveals a few rhonchi at the left base otherwise clear. Heart normal rate rhythm no murmurs. Abdomen soft nontender no masses. Extremities no clubbing cyanosis or edema. Calves nontender. Results - Labs CBC & BMP: 11/02/16 05:34 11/02/16 05:34 Lab Results: I have reviewed the past 24 hour labs - Diagnostic Findings Procedure: Chest x-ray: image reviewed by me (Left lower lobe infiltrate about the same as before. At the left base.) Assessment and Plan (1) Hypothyroidism Status: Chronic Assessment and plan: Patient's Synthroid was increased to dose of 0.075 mg daily last admission. Will check TSH. 11/02/2016 TSH is pending. Current Visit: No (2) COPD with exacerbation Status: Acute Assessment and plan: Oxygen saturation looks okay. Continue with low flow nasal oxygen. She requires it long-term. She has chronic respiratory failure with hypoxemia with an acute exacerbation. Empiric antibiotics. 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 11/02/2016 she is really not having any wheezing at present. Reduce steroids. Current Visit: No (3) Acute on chronic respiratory failure Status: Acute Assessment and plan: Continuing with nasal oxygen for chronic hypoxemic respiratory failure with acute exacerbation 11/02/16 continuing low flow nasal oxygen. Current Visit: No (4) Bipolar disorder Status: Acute Assessment and plan: She is on Keppra. Need to resume her Invega if we can get it. If not may want to use Zyprexa or get psychiatric consult. 11/02/16 she is not on any antipsychotic medications. May want to have psychiatry to see. I would consider putting her on Zyprexa 20 mg daily until her home medication (Invega) can be resumed. Current Visit: No (5) Pneumonia Status: Acute Assessment and plan: Left basilar pneumonia. Has a history of thick secretions in the past requiring bronchoscopy. Will add mucolytics. 11/02/16 left basilar infiltrate looks about the same. No bronchospasm. Continue IV antibiotics and bronchodilators. Current Visit: Yes Specialty Discharge - Follow Up or Referrals
--- NOTE | 2016-11-02 07:16 | Physician Query Form ---
CLICK EDIT DOCUMENT TO SELECT QUERY ANSWER --> OK --> SIGN Helen Calderon RN, CCDS Certified Clinical Instrumentation And Control Technician W) [phone] (f) [phone] [email or web address] PROVIDERS: Make your selection(s) from the choices in EACH section by typing an "x" and enter comments in the comment section. Please use your independent medical judgment in providing your response. This request does not imply that any particular answer is desired or expected. CLINICAL INDICATORS: (Providers should not edit this section) The below diagnosis was documented in the record, but is not consistently noted in subsequent documentation. The medical record indicates that the patient was admitted with COPD exacerbation/ pneumonia, respirations 17-24, Sat's 92%-100%, no ABG's and the patient was placed on 2 liters per NC. Acute respiratory failure is mentioned, as the attending MD can you please clarify if the acute respiratory failure was_ ? Diagnosis: Acute Respiratory Failure Please clarify the following: (x ) The above diagnosis was monitored, evaluated, and/or treated and is a confirmed diagnosis ( ) The above diagnosis was ruled out ( ) The above diagnosis is still a likely, suspected, probable diagnosis ( ) Other, please specify: ( ) Clinically unable to determine COMMENTS: PLEASE ALSO DOCUMENT RESPONSE IN PROGRESS NOTES AND/OR DISCHARGE SUMMARY Use of terms such as suspected, likely, or probable (associated with a specific diagnosis that is being evaluated, monitored, or treated as if it exists) are acceptable and can be restated in the discharge summary if not ruled out. MTDD
[2016-11-02] MEDS: DORNASE ALFA 2.5 MG/2.5 ML VIAL RESP TX SCH ×2 (07:36→19:11)
[2016-11-02] MEDS: amLODIPine 5 MG TABLET PO SCH (09:33)
[2016-11-02] MEDS: predniSONE 20 MG TABLET PO SCH (09:33)
[2016-11-02] MEDS: FAMOTIDINE 20 MG TABLET PO SCH (09:33)
[2016-11-02] MEDS: DIVALPROEX 250 MG TABLET PO SCH ×2 (09:33→20:28)
[2016-11-02] MEDS: MONTELUKAST 10 MG TABLET PO SCH (09:33)
[2016-11-02] MEDS: DIGOXIN 0.125 MG TABLET PO SCH (09:34)
[2016-11-02] MEDS: PANTOPRAZOLE 40 MG TABLET PO SCH (09:34)
[2016-11-02] MEDS: LEVOTHYROXINE 75 MCG TABLET PO SCH (09:34)
[2016-11-02] MEDS: ROFLUMILAST 500 MCG TABLET PO SCH (09:36)
[2016-11-02] MEDS: MEROPENEM 1,000 MG in SODIUM CHLORIDE 0.9% 100 ML IV SCH ×2 (09:39→20:28)
--- NOTE | 2016-11-02 15:15 | Hospitalist Progress Note ---
<Matteo Fung - Last Filed: 11/02/16 15:12> Assessment and Plan (1) Pneumonia Status: Acute Current Visit: Yes (2) Bipolar disorder Status: Acute Current Visit: No (3) COPD (chronic obstructive pulmonary disease) Status: Acute Current Visit: No Qualifiers: COPD type: COPD with acute exacerbation Qualified Code(s): J44.1 - Chronic obstructive pulmonary disease with (acute) exacerbation Hospitalist: Subjective Interval history: Pt. denies any issues overnight. No apparent distress noted. Pt. resting comfortably. Will continue current care. Will seek to set up psych eval. She is current on Invega. Dose not due at this time. Exam - Constitutional Vitals: Period Temp Pulse Resp BP Sys/Martini Pulse Ox Last 24 Hr 97.8 F-99.0 F 71-108 16-22 102-132/52-77 92-99 General appearance: normal weight, no acute distress - Head Head exam: Present: normal inspection, normocephalic - Neck Neck exam: Present: normal inspection - Respiratory Respiratory exam: Absent: wheezes - Extremities Exam Extremities exam: Present: normal capillary refill - Neurological Exam Neurological exam: Present: alert, oriented X3 - Psychiatric Psychiatric exam: Present: normal affect, normal mood - Skin Skin exam: Present: normal color, warm, dry Results - Labs CBC & BMP: 11/02/16 05:34 11/02/16 05:34 Lab Results: I have reviewed the past 24 hour labs Specialty Discharge - Follow Up or Referrals <Avery Rg - Last Filed: 11/02/16 16:55> Assessment and Plan (1) COPD (chronic obstructive pulmonary disease) Status: Acute Current Visit: No Qualifiers: COPD type: COPD with acute exacerbation Qualified Code(s): J44.1 - Chronic obstructive pulmonary disease with (acute) exacerbation (2) Depression, major, recurrent, severe with psychosis Status: Acute Current Visit: No (3) Bipolar disorder Status: Acute Current Visit: No (4) Hypothyroidism Status: Acute Current Visit: No (5) Pneumonia Status: Acute Current Visit: Yes Hospitalist: Subjective Interval history: Patient seen and examined independently of SHERRY Fung, agree with assessment and plan as documented. Patient doing better. She is up to date on her Invega. Possible discharge soon. Exam - Constitutional Vitals: Period Temp Pulse Resp BP Sys/Martini Pulse Ox Last 24 Hr 97.8 F-99.0 F 71-108 16-22 102-132/52-77 92-99 Results - Labs CBC & BMP: 11/02/16 05:34 11/02/16 05:34
[2016-11-02] MEDS: ENOXAPARIN 40 MG/0.4 ML SYRINGE SUBCUT SCH (17:30)
[2016-11-02] MEDS: LEVOFLOXACIN INJ 750 MG in PREMIX 1 EACH IV SCH (17:30)
[2016-11-03] MEDS: ALBUTEROL/IPRATROPIUM 3 ML NEB RESP TX SCH ×4 (00:07→19:58)
[2016-11-03] MEDS: DORNASE ALFA 2.5 MG/2.5 ML VIAL RESP TX SCH ×2 (07:23→19:59)
[2016-11-03] MEDS: MEROPENEM 1,000 MG in SODIUM CHLORIDE 0.9% 100 ML IV SCH ×2 (08:17→20:21)
[2016-11-03] MEDS: MONTELUKAST 10 MG TABLET PO SCH (08:17)
[2016-11-03] MEDS: LEVOTHYROXINE 75 MCG TABLET PO SCH (08:17)
[2016-11-03] MEDS: ROFLUMILAST 500 MCG TABLET PO SCH (08:17)
[2016-11-03] MEDS: DIGOXIN 0.125 MG TABLET PO SCH (08:17)
[2016-11-03] MEDS: DIVALPROEX 250 MG TABLET PO SCH ×2 (08:17→20:21)
[2016-11-03] MEDS: amLODIPine 5 MG TABLET PO SCH (08:17)
[2016-11-03] MEDS: PANTOPRAZOLE 40 MG TABLET PO SCH (08:17)
[2016-11-03] MEDS: FAMOTIDINE 20 MG TABLET PO SCH (08:17)
[2016-11-03] MEDS: predniSONE 20 MG TABLET PO SCH (08:17)
--- NOTE | 2016-11-03 09:49 | Pulmonology Progress Note ---
Pulmonary - PN: Subj Interval history: Patient is a 71-year-old white lady that has a bipolar disorder. She has COPD and came in with a left lower lobe pneumonia. She says she is feeling better and not having any shortness of breath or coughing now. She gets confused easily but seems to be resting okay now. She says she is eating fairly well. She has not had any fever now. Overall she seems to be tolerating her medicines. Exam (Progress Note) - Constitutional Vitals: Period Temp Pulse Resp BP Sys/Martini Pulse Ox Last 24 Hr 97.5 F-98.4 F 86-99 17-22 113-137/60-81 90-99 General appearance: normal weight, no acute distress (She is sitting comfortably in bed.) - Head Head exam: Present: normocephalic, other (She has a Band-Aid over her right eye. ) - Eye Eye exam: Present: EOMI. Absent: scleral icterus Pupils: Present: JHONNY - ENT ENT exam: Present: normal exam - Neck Neck exam: Present: normal inspection. Absent: lymphadenopathy, thyromegaly - Respiratory Respiratory exam: Present: decreased breath sounds, prolonged expiratory phase, rhonchi - Cardiovascular Cardiovascular exam: Present: regular rate and rhythm. Absent: gallop, systolic murmur - GI/Abdominal GI/Abdominal exam: Present: normal bowel sounds, soft. Absent: distended, organomegaly, tenderness - Extremities Exam Extremities exam: Absent: calf tenderness, edema - Neurological Exam Neurological exam: Present: alert, altered (She does not seem to be too confused today.) - Psychiatric Psychiatric exam: Absent: anxious - Skin Skin exam: Present: warm, dry Results - Labs CBC & BMP: 11/02/16 05:34 11/02/16 05:34 - Diagnostic Findings Procedure: Chest x-ray: image reviewed by me, report reviewed by me (Chest x- ray shows minimal infiltrate in the left base.) Assessment and Plan (1) COPD with exacerbation Status: Acute Assessment and plan: Patient comes in with COPD and is getting some respiratory therapy. She is breathing comfortably at present. Current Visit: No (2) Debility Status: Acute Assessment and plan: The patient does look chronically ill but is stable at present. Current Visit: No (3) Bipolar disorder Status: Acute Assessment and plan: The patient is getting medications for her anxiety etc. Current Visit: No (4) Pneumonia Status: Acute Assessment and plan: She is tolerating her antibiotics and seems to be doing better. Current Visit: Yes Specialty Discharge - Follow Up or Referrals
--- NOTE | 2016-11-03 11:42 | Hospitalist Progress Note ---
<Matteo Fung - Last Filed: 11/03/16 11:37> Assessment and Plan (1) Pneumonia Status: Acute Assessment and plan: Pulmonary following. Current Visit: Yes (2) Bipolar disorder Status: Acute Current Visit: No (3) COPD (chronic obstructive pulmonary disease) Status: Acute Current Visit: No Qualifiers: COPD type: COPD with acute exacerbation Qualified Code(s): J44.1 - Chronic obstructive pulmonary disease with (acute) exacerbation Hospitalist: Subjective Interval history: Pt. seen and examined no changes. Pt. states she feels good today. Needing assistance to bathroom; nurse notified. We will continue current plan of care. Exam - Constitutional Vitals: Period Temp Pulse Resp BP Sys/Martini Pulse Ox Last 24 Hr 97.5 F-98.3 F 86-97 17-22 113-137/60-81 90-99 General appearance: normal weight, no acute distress - Head Head exam: Present: normal inspection, normocephalic - Eye Eye exam: Present: EOMI. Absent: laceration to eyelids Pupils: Present: JHONNY - ENT ENT exam: Present: normal exam - Neck Neck exam: Present: normal inspection - Respiratory Respiratory exam: Present: clear to auscultation bilaterally. Absent: wheezes - Cardiovascular Cardiovascular exam: Present: regular rate and rhythm - GI/Abdominal GI/Abdominal exam: Present: normal bowel sounds, soft. Absent: tenderness - Extremities Exam Extremities exam: Present: normal capillary refill, full ROM. Absent: edema - Neurological Exam Neurological exam: Present: alert, oriented X3 - Psychiatric Psychiatric exam: Present: normal affect, normal mood - Skin Skin exam: Present: normal color, warm, dry Results - Labs CBC & BMP: 11/02/16 05:34 11/02/16 05:34 Lab Results: I have reviewed the past 24 hour labs Specialty Discharge - Follow Up or Referrals <Avery Rg - Last Filed: 11/03/16 13:05> Assessment and Plan (1) COPD (chronic obstructive pulmonary disease) Status: Acute Current Visit: No Qualifiers: COPD type: COPD with acute exacerbation Qualified Code(s): J44.1 - Chronic obstructive pulmonary disease with (acute) exacerbation (2) Depression, major, recurrent, severe with psychosis Status: Acute Current Visit: No (3) Bipolar disorder Status: Acute Current Visit: No (4) Hypothyroidism Status: Acute Current Visit: No (5) Pneumonia Status: Acute Current Visit: Yes Hospitalist: Subjective Interval history: Patient seen and examined independently of [employer] NAV[employer] Fung, agree with assessment and plan as documented. Patient without complaints. Chest PT started today. Exam - Constitutional Vitals: Period Temp Pulse Resp BP Sys/Martini Pulse Ox Last 24 Hr 97.5 F-98.3 F 86-97 17-21 113-137/60-81 90-99 Results - Labs CBC & BMP: 11/02/16 05:34 11/02/16 05:34
[2016-11-03] MEDS: LEVOFLOXACIN INJ 750 MG in PREMIX 1 EACH IV SCH (17:30)
[2016-11-03] MEDS: ENOXAPARIN 40 MG/0.4 ML SYRINGE SUBCUT SCH (17:30)
[2016-11-04] MEDS: ALBUTEROL/IPRATROPIUM 3 ML NEB RESP TX SCH ×7 (00:16→23:53)
[2016-11-04 07:04] LABS: Basophils # 0.1 10*3/uL (0.0-0.2); Basophils % 0.7 % (0.0-0.8); Eosinophils # 0.2 10*3/uL (0.0-0.87); Eosinophils % 2.1 % (0.00-10.9); Hematocrit 33.5 VOL% (35.7-47.0); Hemoglobin 11.1 GM/DL (12.0-16.0); Immature Granulocytes % 1.2 %; Immature Granulocytes Absolute 0.09 #; Lymphocytes # 2.6 10*3/uL (1.4-4.0); Lymphocytes % 34.2 % (21.3-54.2); Mean Corpuscular HGB Conc 33.1 GM/DL (32-36); Mean Corpuscular Hemoglobin 28 PG (27-34); Mean Corpuscular Volume 84.6 FL (87-102); Mean Platelet Volume 9.9 FL (9.6-12.0); Monocytes # 1.1 10*3/uL (0.11-0.8); Monocytes % 14.3 % (1.7-12.7); Neutrophils # 3.6 10*3/uL (1.4-7.4); Neutrophils % 47.5 % (38.7-73.9); Platelet Count 340 T/CUMM (130-400); Red Blood Count 3.96 MC/CUMM (3.8-5.5); Red Cell Distribution Width 15.7 % (9.3-17.3); White Blood Count 7.6 T/CUMM (4-12)
[2016-11-04 07:41] LABS: Calcium 8.2 MG/DL (8.5-10.1); Free T4 (Free Thyroxine) 1.06 NG/DL (0.76-1.46); Magnesium 2.2 MG/DL (1.8-2.4); Potassium 4.7 MMOL/L (3.5-5.1); Thyroid Stimulating Hormone 33.6 uIU/ml (0.358-3.74)
[2016-11-04] MEDS: FAMOTIDINE 20 MG TABLET PO SCH (08:28)
[2016-11-04] MEDS: PANTOPRAZOLE 40 MG TABLET PO SCH (08:28)
[2016-11-04] MEDS: predniSONE 20 MG TABLET PO SCH (08:28)
[2016-11-04] MEDS: amLODIPine 5 MG TABLET PO SCH (08:28)
[2016-11-04] MEDS: DIVALPROEX 250 MG TABLET PO SCH ×2 (08:28→20:19)
[2016-11-04] MEDS: LEVOTHYROXINE 75 MCG TABLET PO SCH (08:28)
[2016-11-04] MEDS: ROFLUMILAST 500 MCG TABLET PO SCH (08:28)
[2016-11-04] MEDS: DIGOXIN 0.125 MG TABLET PO SCH (08:28)
[2016-11-04] MEDS: MONTELUKAST 10 MG TABLET PO SCH (08:29)
[2016-11-04] MEDS: MEROPENEM 1,000 MG in SODIUM CHLORIDE 0.9% 100 ML IV SCH ×2 (08:45→20:19)
--- NOTE | 2016-11-04 10:02 | Pulmonology Progress Note ---
Pulmonary - PN: Subj Interval history: Patient is a 71-year-old white lady that has a bipolar disorder. She has COPD and came in with a left lower lobe pneumonia. She says she is feeling better but does very little activity. She is still getting vigorous respiratory therapy and has some cough. She does have a very flat affect. She seems to be relatively comfortable at present. Her O2 saturations are in the low 90s. She does not move much. Exam (Progress Note) - Constitutional Vitals: Period Temp Pulse Resp BP Sys/Martini Pulse Ox Last 24 Hr 97.1 F-98.3 F 78-96 18-20 108-154/65-84 89-98 Exam: General appearance: normal weight, no acute distress (She is sitting comfortably in bed. She is not having any respiratory distress.) - Head Head exam: Present: normocephalic, other (She has some abrasions on her right forehead and cheek.) - Eye Eye exam: Present: EOMI. Absent: scleral icterus Pupils: Present: JHONNY - ENT ENT exam: Present: normal exam - Neck Neck exam: Present: normal inspection. Absent: lymphadenopathy, thyromegaly - Respiratory Respiratory exam: Present: She has diminished breath sounds bilaterally but is moving air okay without any definite wheezing. - Cardiovascular Cardiovascular exam: Present: regular rate and rhythm. Absent: gallop, systolic murmur - GI/Abdominal GI/Abdominal exam: Present: normal bowel sounds, soft. Absent: distended, organomegaly, tenderness - Extremities Exam Extremities exam: Absent: calf tenderness, edema, she has no signs of phlebitis. - Neurological Exam Neurological exam: Present: alert, altered (She does not seem to be too confused today.) - Psychiatric Psychiatric exam: Absent: anxious, she has a flat affect. - Skin Skin exam: Present: warm, dry Results - Labs CBC & BMP: 11/04/16 06:16 11/04/16 06:16 Assessment and Plan (1) COPD with exacerbation Status: Acute Assessment and plan: Patient comes in with COPD and is getting some respiratory therapy. She is breathing comfortably at present. She does not have that good a cough but does seem comfortable. Current Visit: No (2) Debility Status: Acute Assessment and plan: The patient does look chronically ill but is stable at present. She does not do much activity. Current Visit: No (3) Bipolar disorder Status: Acute Assessment and plan: The patient is getting medications for her anxiety etc. Current Visit: No (4) Pneumonia Status: Acute Assessment and plan: She is tolerating her antibiotics and seems to be doing better. Clinically she seems to be doing a little better. Current Visit: Yes Specialty Discharge - Follow Up or Referrals
--- NOTE | 2016-11-04 16:43 | Hospitalist Progress Note ---
Assessment and Plan (1) COPD (chronic obstructive pulmonary disease) Status: Acute Current Visit: No Qualifiers: COPD type: COPD with acute exacerbation Qualified Code(s): J44.1 - Chronic obstructive pulmonary disease with (acute) exacerbation (2) Depression, major, recurrent, severe with psychosis Status: Acute Current Visit: No (3) Bipolar disorder Status: Acute Current Visit: No (4) Hypothyroidism Status: Acute Current Visit: No (5) Pneumonia Status: Acute Assessment and plan: Pulmonary assisting Levaquin and codie Duonebs, low dose steroids Her cough is very junky sounding, continue with cpt Current Visit: Yes Hospitalist: Subjective Interval history: No acute events overnight. She reports that her breathing is good today. She does report some intermittent problems with urination. Exam - Constitutional Vitals: Period Temp Pulse Resp BP Sys/Martini Pulse Ox Last 24 Hr 97.1 F-98.1 F 78-117 14-22 106-154/55-84 86-96 General appearance: over weight - Head Head exam: Present: normocephalic, atraumatic - Eye Eye exam: Present: EOMI Pupils: Present: JHONNY - ENT ENT exam: Present: normal exam - Neck Neck exam: Present: normal inspection - Respiratory Respiratory exam: Present: clear to auscultation bilaterally. Absent: rhonchi, wheezes - Cardiovascular Cardiovascular exam: Present: regular rate and rhythm - GI/Abdominal GI/Abdominal exam: Present: normal bowel sounds, soft - Back Exam Back exam: Present: normal inspection - Neurological Exam Neurological exam: Present: alert - Psychiatric Psychiatric exam: Present: flat affect. Absent: anxious - Skin Skin exam: Present: warm, intact Results - Labs CBC & BMP: 11/04/16 06:16 11/04/16 06:16 Specialty Discharge - Follow Up or Referrals
[2016-11-04] MEDS: LEVOFLOXACIN INJ 750 MG in PREMIX 1 EACH IV SCH (18:32)
[2016-11-04] MEDS: ENOXAPARIN 40 MG/0.4 ML SYRINGE SUBCUT SCH (18:33)
[2016-11-05] MEDS: ALBUTEROL/IPRATROPIUM 3 ML NEB RESP TX SCH ×5 (04:13→20:54)
[2016-11-05 07:14] LABS: Calcium 8.5 MG/DL (8.5-10.1); Potassium 4.4 MMOL/L (3.5-5.1)
--- NOTE | 2016-11-05 07:42 | Pulmonology Progress Note ---
Pulmonary - PN: Subj Interval history: 71-year-old white female with bipolar disorder that has a left lower lobe pneumonia. She is not running any fever. She sounds a little better today. She is somewhat confused. She is not getting her long-acting antipsychotic medications as yet. If she cannot get the Invega then we should go with Zyprexa 20 mg daily until it comes in. Will defer to primary service on this 1. May want to get a psychiatric consult. 11/05/2016 turns out her Invega was a long-acting injection and she does not need anymore at present. She is more alert and more animated. Chest x-ray show some improvement at the left base with aeration. Probably needs a couple more days of IV antibiotics. She is generally weak and was pretty in active at home. She has a daughter that helps look after her. May want to look into a swing bed or at least home health care. Exam (Progress Note) - Constitutional Vitals: Period Temp Pulse Resp BP Sys/Martini Pulse Ox Last 24 Hr 96.4 F-98.2 F 72-117 14-22 106-149/55-75 86-98 Exam: Patient is responsive. She seems more oriented and more animated. Vital signs normal. Pupils react to light. Throat is clear. Neck supple bruits. Chest reveals a few rhonchi at the left base otherwise clear. Heart normal rate rhythm no murmurs. Abdomen soft nontender no masses. Extremities no clubbing cyanosis or edema. Calves nontender. Results - Labs CBC & BMP: 11/04/16 06:16 11/05/16 05:22 Lab Results: I have reviewed the past 24 hour labs - Diagnostic Findings Procedure: Chest x-ray: image reviewed by me (Left basilar infiltrate looks a little bit better.) Assessment and Plan (1) Hypothyroidism Status: Chronic Assessment and plan: Patient's Synthroid was increased to dose of 0.075 mg daily last admission. Will check TSH. 11/02/2016 TSH is pending. 11/05/2016 TSH is 33. Probably needs a little more Synthroid. Free T4 is 1.06, in the low range of normal. Current Visit: No (2) COPD with exacerbation Status: Acute Assessment and plan: Oxygen saturation looks okay. Continue with low flow nasal oxygen. She requires it long-term. She has chronic respiratory failure with hypoxemia with an acute exacerbation. Empiric antibiotics. 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 11/02/2016 she is really not having any wheezing at present. Reduce steroids. 11/05/2016 no bronchospasm. Keep steroids to a minimum with her bipolar disorder. Current Visit: No (3) Acute on chronic respiratory failure Status: Acute Assessment and plan: Continuing with nasal oxygen for chronic hypoxemic respiratory failure with acute exacerbation 11/02/16 continuing low flow nasal oxygen. 11/05/2016 continuing to require low flow nasal oxygen. Current Visit: No (4) Bipolar disorder Status: Acute Assessment and plan: She is on Keppra. Need to resume her Invega if we can get it. If not may want to use Zyprexa or get psychiatric consult. 11/02/16 she is not on any antipsychotic medications. May want to have psychiatry to see. I would consider putting her on Zyprexa 20 mg daily until her home medication (Invega) can be resumed. 11/05/2016 turns out her medication is a long-acting injection. We do not need to make any changes on images find out when the next dose is due of the Invega. Current Visit: No (5) Pneumonia Status: Acute Assessment and plan: Left basilar pneumonia. Has a history of thick secretions in the past requiring bronchoscopy. Will add mucolytics. 11/02/16 left basilar infiltrate looks about the same. No bronchospasm. Continue IV antibiotics and bronchodilators. 11/05/2016 left basilar pneumonia looks a little less dense. Responding well to current antibiotics. Probably needs a couple more days. Cultures negative thus far. Community-acquired pneumonia in a patient with underlying COPD and thus likely to have a gram-negative. Current Visit: Yes Specialty Discharge - Follow Up or Referrals
--- NOTE | 2016-11-05 07:45 | XRay Report ---
Portable chest. Indication: Pneumonia. Comparison: November 02, 2016. The heart is normal in size. There is calcific plaque present within the aortic knob. The pulmonary vasculature is normal. Mild fibrotic changes present. The right lung is essentially clear. Atelectasis and pleural effusion at the left lung base, essentially stable. Healed rib fracture on the left. Degenerative changes of the spinal column. Impression: No significant interval change in the pleural and parenchymal abnormality at the left lung base. PROCEDURE INTERPRETED AT [facility] DEPARTMENT OF RADIOLOGY Final Report Signed by: Dr. Renu Stack
[2016-11-05] MEDS: LEVOTHYROXINE 75 MCG TABLET PO SCH (08:37)
[2016-11-05] MEDS: MEROPENEM 1,000 MG in SODIUM CHLORIDE 0.9% 100 ML IV SCH ×2 (09:06→20:44)
[2016-11-05] MEDS: DIGOXIN 0.125 MG TABLET PO SCH (09:07)
[2016-11-05] MEDS: LEVOTHYROXINE 100 MCG TABLET PO SCH (09:08)
[2016-11-05] MEDS: DIVALPROEX 250 MG TABLET PO SCH ×2 (09:08→20:50)
[2016-11-05] MEDS: ROFLUMILAST 500 MCG TABLET PO SCH (09:08)
[2016-11-05] MEDS: PANTOPRAZOLE 40 MG TABLET PO SCH (09:08)
[2016-11-05] MEDS: predniSONE 20 MG TABLET PO SCH (09:08)
[2016-11-05] MEDS: MONTELUKAST 10 MG TABLET PO SCH (09:08)
[2016-11-05] MEDS: amLODIPine 5 MG TABLET PO SCH (09:08)
[2016-11-05] MEDS: FAMOTIDINE 20 MG TABLET PO SCH (09:08)
[2016-11-05] MEDS ORDERED: TUBERCULIN SKIN TEST 0.1 ML SYRINGE INTRADERM ONE (11:30)
--- NOTE | 2016-11-05 13:13 | Case Mgmt Physician Query Form ---
TB Signs and Symptoms Screening ([place]) INSTRUCTIONS: To be completed annually on residents/staff with a significant Tuberculin Skin Test (TST) upon admission/hire or a prior significant TST. To be completed on all staff at hire. Please respond to each listed symptom with an (X) in either the "YES" or "NO" box. Do you currently have any of the following symptoms: YES NO (x ) ( ) A cough If yes, is it: ( ) Productive ( ) Non- productive ( ) ( x) Hemoptysis (spitting up blood) ( ) ( x) Chest pains ( ) ( x) Weight Loss ( ) ( x) Fever ( ) ( x) Night Sweats ( ) ( x) Weakness ( ) ( x) Loss of Appetite ( ) ( x) Difficulty Breathing If you answered YES" to any of the above questions, how long have symptoms been present? Chronic cough secondary to COPD Comments: If you have any questions, please contact me . Thank you, Yasmin DAMON Email: [email or web address] [facility]
--- NOTE | 2016-11-05 14:51 | Hospitalist Progress Note ---
Assessment and Plan (1) COPD (chronic obstructive pulmonary disease) Status: Acute Current Visit: No Qualifiers: COPD type: COPD with acute exacerbation Qualified Code(s): J44.1 - Chronic obstructive pulmonary disease with (acute) exacerbation (2) Depression, major, recurrent, severe with psychosis Status: Acute Current Visit: No (3) Bipolar disorder Status: Acute Current Visit: No (4) Hypothyroidism Status: Acute Current Visit: No (5) Pneumonia Status: Acute Assessment and plan: Pulmonary assisting Levaquin and merrem Duonebs, low dose steroids Her cough is very junky sounding, continue with cpt Current Visit: Yes Hospitalist: Subjective Interval history: No acute events overnight. Patient resting comfortably, no complaints. Exam - Constitutional Vitals: Period Temp Pulse Resp BP Sys/Martini Pulse Ox Last 24 Hr 96.4 F-98.5 F 72-113 16-22 116-149/61-75 90-99 General appearance: over weight - Head Head exam: Present: normocephalic, atraumatic - Eye Eye exam: Present: EOMI Pupils: Present: JHONNY - ENT ENT exam: Present: normal exam - Neck Neck exam: Present: normal inspection - Respiratory Respiratory exam: Present: clear to auscultation bilaterally. Absent: rhonchi, wheezes - Cardiovascular Cardiovascular exam: Present: regular rate and rhythm - GI/Abdominal GI/Abdominal exam: Present: normal bowel sounds, soft - Extremities Exam Extremities exam: Present: normal inspection - Back Exam Back exam: Present: normal inspection - Neurological Exam Neurological exam: Present: alert, oriented X3 - Psychiatric Psychiatric exam: Present: flat affect - Skin Skin exam: Present: warm, intact Results - Labs CBC & BMP: 11/04/16 06:16 11/05/16 05:22 Specialty Discharge - Follow Up or Referrals
[2016-11-05] MEDS: LEVOFLOXACIN INJ 750 MG in PREMIX 1 EACH IV SCH (19:21)
[2016-11-05] MEDS: ENOXAPARIN 40 MG/0.4 ML SYRINGE SUBCUT SCH (19:21)
[2016-11-06] MEDS: ALBUTEROL/IPRATROPIUM 3 ML NEB RESP TX SCH ×7 (00:30→23:50)
[2016-11-06] MEDS: LEVOTHYROXINE 100 MCG TABLET PO SCH (06:27)
[2016-11-06] MEDS: MEROPENEM 1,000 MG in SODIUM CHLORIDE 0.9% 100 ML IV SCH ×2 (09:25→20:31)
[2016-11-06] MEDS: DIVALPROEX 250 MG TABLET PO SCH ×2 (09:26→20:31)
[2016-11-06] MEDS: DIGOXIN 0.125 MG TABLET PO SCH (09:26)
[2016-11-06] MEDS: amLODIPine 5 MG TABLET PO SCH (09:27)
[2016-11-06] MEDS: MONTELUKAST 10 MG TABLET PO SCH (09:27)
[2016-11-06] MEDS: ROFLUMILAST 500 MCG TABLET PO SCH (09:27)
[2016-11-06] MEDS: PANTOPRAZOLE 40 MG TABLET PO SCH (09:28)
[2016-11-06] MEDS: FAMOTIDINE 20 MG TABLET PO SCH (09:28)
[2016-11-06] MEDS: predniSONE 20 MG TABLET PO SCH (09:34)
--- NOTE | 2016-11-06 10:21 | Pulmonology Progress Note ---
Pulmonary - PN: Subj Interval history: 71-year-old white female with bipolar disorder that has a left lower lobe pneumonia. She is not running any fever. She sounds a little better today. She is somewhat confused. She is not getting her long-acting antipsychotic medications as yet. If she cannot get the Invega then we should go with Zyprexa 20 mg daily until it comes in. Will defer to primary service on this 1. May want to get a psychiatric consult. 11/05/2016 turns out her Invega was a long-acting injection and she does not need anymore at present. She is more alert and more animated. Chest x-ray show some improvement at the left base with aeration. Probably needs a couple more days of IV antibiotics. She is generally weak and was pretty in active at home. She has a daughter that helps look after her. May want to look into a swing bed or at least home health care. 11/06/2016 patient is looking better. Starting to do physical therapy. Agree with plans for swing bed. Cultures have been negative. Probably could go to oral antibiotics in the next day or so Exam (Progress Note) - Constitutional Vitals: Period Temp Pulse Resp BP Sys/Martini Pulse Ox Last 24 Hr 96.7 F-98.6 F 63-108 16-22 105-144/55-79 92-99 Exam: Patient is responsive. She seems more oriented and more animated. Vital signs normal. Pupils react to light. Throat is clear. Neck supple bruits. Chest reveals a few rhonchi at the left base otherwise clear. Heart normal rate rhythm no murmurs. Abdomen soft nontender no masses. Extremities no clubbing cyanosis or edema. Calves nontender. Little change from yesterday. Results - Labs CBC & BMP: 11/04/16 06:16 11/05/16 05:22 Lab Results: I have reviewed the past 24 hour labs Assessment and Plan (1) Hypothyroidism Status: Chronic Assessment and plan: Patient's Synthroid was increased to dose of 0.075 mg daily last admission. Will check TSH. 11/02/2016 TSH is pending. 11/05/2016 TSH is 33. Probably needs a little more Synthroid. Free T4 is 1.06, in the low range of normal. 11/06/2016 would need another TSH in 4-6 weeks. Current Visit: No (2) COPD with exacerbation Status: Acute Assessment and plan: Oxygen saturation looks okay. Continue with low flow nasal oxygen. She requires it long-term. She has chronic respiratory failure with hypoxemia with an acute exacerbation. Empiric antibiotics. 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 11/02/2016 she is really not having any wheezing at present. Reduce steroids. 11/05/2016 no bronchospasm. Keep steroids to a minimum with her bipolar disorder. 11/06/2016 no active bronchospasm. Probably can stop prednisone. 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 11/05/2016 continuing to require low flow nasal oxygen. 11/06/2016 continuing with low flow nasal oxygen. Current Visit: No (4) Bipolar disorder Status: Acute Assessment and plan: She is on Keppra. Need to resume her Invega if we can get it. If not may want to use Zyprexa or get psychiatric consult. 11/02/16 she is not on any antipsychotic medications. May want to have psychiatry to see. I would consider putting her on Zyprexa 20 mg daily until her home medication (Invega) can be resumed. 11/05/2016 turns out her medication is a long-acting injection. We do not need to make any changes on images find out when the next dose is due of the Invega. Current Visit: No (5) Pneumonia Status: Acute Assessment and plan: Left basilar pneumonia. Has a history of thick secretions in the past requiring bronchoscopy. Will add mucolytics. 11/02/16 left basilar infiltrate looks about the same. No bronchospasm. Continue IV antibiotics and bronchodilators. 11/05/2016 left basilar pneumonia looks a little less dense. Responding well to current antibiotics. Probably needs a couple more days. Cultures negative thus far. Community-acquired pneumonia in a patient with underlying COPD and thus likely to have a gram-negative. Date 817 could go to oral Levaquin or Omnicef in another day or so. Current Visit: Yes Specialty Discharge - Follow Up or Referrals
--- NOTE | 2016-11-06 13:49 | Hospitalist Progress Note ---
Assessment and Plan (1) COPD (chronic obstructive pulmonary disease) Status: Acute Current Visit: No Qualifiers: COPD type: COPD with acute exacerbation Qualified Code(s): J44.1 - Chronic obstructive pulmonary disease with (acute) exacerbation (2) Depression, major, recurrent, severe with psychosis Status: Acute Current Visit: No (3) Bipolar disorder Status: Acute Current Visit: No (4) Hypothyroidism Status: Acute Current Visit: No (5) Pneumonia Status: Acute Assessment and plan: Pulmonary assisting Levaqhiram and codie Bowden, low dose steroids cpt Current Visit: Yes Hospitalist: Subjective Interval history: No acute events overnight. She is without complaints. Working on swing bed placement. Exam - Constitutional Vitals: Period Temp Pulse Resp BP Sys/Martini Pulse Ox Last 24 Hr 96.7 F-98.6 F 63-108 16-22 105-160/55-88 17-99 General appearance: over weight - Head Head exam: Present: normocephalic, atraumatic - Eye Eye exam: Present: EOMI Pupils: Present: JHONNY - ENT ENT exam: Present: normal exam - Neck Neck exam: Present: normal inspection - Respiratory Respiratory exam: Present: clear to auscultation bilaterally. Absent: rhonchi, wheezes - Cardiovascular Cardiovascular exam: Present: regular rate and rhythm - GI/Abdominal GI/Abdominal exam: Present: normal bowel sounds, soft. Absent: tenderness, rebound - Extremities Exam Extremities exam: Present: normal inspection - Back Exam Back exam: Present: normal inspection - Neurological Exam Neurological exam: Present: alert, oriented X3 - Psychiatric Psychiatric exam: Present: flat affect. Absent: anxious - Skin Skin exam: Present: warm, intact Results - Labs CBC & BMP: 11/04/16 06:16 11/05/16 05:22 Specialty Discharge - Follow Up or Referrals
[2016-11-06] MEDS: ZINC OXIDE 16% PASTE 57 GM TUBE TOP SCH ×2 (15:12→21:15)
[2016-11-06] MEDS: LEVOFLOXACIN INJ 750 MG in PREMIX 1 EACH IV SCH ×2 (17:08→18:51)
[2016-11-06] MEDS: ENOXAPARIN 40 MG/0.4 ML SYRINGE SUBCUT SCH ×2 (17:08→18:52)
[2016-11-07] MEDS: ALBUTEROL/IPRATROPIUM 3 ML NEB RESP TX SCH ×5 (03:12→20:11)
[2016-11-07] MEDS: LEVOTHYROXINE 100 MCG TABLET PO SCH (06:12)
--- NOTE | 2016-11-07 08:22 | Hospitalist Progress Note ---
Assessment and Plan (1) COPD (chronic obstructive pulmonary disease) Status: Chronic Assessment and plan: Superimposed pneumonia Current Visit: No Qualifiers: COPD type: COPD with acute exacerbation Qualified Code(s): J44.1 - Chronic obstructive pulmonary disease with (acute) exacerbation (2) Bipolar disorder Status: Chronic Assessment and plan: Associated generalized anxiety disorder major depressive disorder with periods of psychotic behavior in the past. Current Visit: No Hospitalist: Subjective Interval history: 71-year-old female bipolar disorder with hypothyroidism presenting with a left lower lobe process consistent with pneumonia associated with exacerbation of COPD. She has had gradual improvement and is anticipated for swing bed referral. Her recorded SaO2 have been somewhat labile. Capillary blood glucose control adequate. Vital signs are stable and she is afebrile. This morning she has no specific complaint Exam - Constitutional Vitals: Period Temp Pulse Resp BP Sys/Martini Pulse Ox Last 24 Hr 97.5 F-98.8 F 80-102 16-20 109-160/60-88 89-99 General appearance: no acute distress, over weight - Respiratory Respiratory exam: Present: wheezes. Absent: rales, rhonchi (In for frequent scattered high-pitched wheeze) - Cardiovascular Cardiovascular exam: Present: regular rate and rhythm - GI/Abdominal GI/Abdominal exam: Present: normal bowel sounds. Absent: tenderness - Neurological Exam Neurological exam: Present: alert Results - Labs CBC & BMP: 11/04/16 06:16 11/05/16 05:22 Specialty Discharge - Follow Up or Referrals
--- NOTE | 2016-11-07 09:15 | Pulmonology Progress Note ---
Pulmonary - PN: Subj Interval history: 71-year-old white female with bipolar disorder that has a left lower lobe pneumonia. She is not running any fever. She sounds a little better today. She is somewhat confused. She is not getting her long-acting antipsychotic medications as yet. If she cannot get the Invega then we should go with Zyprexa 20 mg daily until it comes in. Will defer to primary service on this 1. May want to get a psychiatric consult. 11/05/2016 turns out her Invega was a long-acting injection and she does not need anymore at present. She is more alert and more animated. Chest x-ray show some improvement at the left base with aeration. Probably needs a couple more days of IV antibiotics. She is generally weak and was pretty in active at home. She has a daughter that helps look after her. May want to look into a swing bed or at least home health care. 11/06/2016 patient is looking better. Starting to do physical therapy. Agree with plans for swing bed. Cultures have been negative. Probably could go to oral antibiotics in the next day or so 11/07/2016 patient is feeling better and seems calm and does not appear dyspneic. Patient does need physical therapy and plans are for her to go to a swing bed. Exam (Progress Note) - Constitutional Vitals: Period Temp Pulse Resp BP Sys/Martini Pulse Ox Last 24 Hr 97.5 F-98.8 F 80-102 16-20 109-160/60-88 89-99 Exam: Patient is responsive. She seems more oriented and more animated. Vital signs normal. Pupils react to light. Throat is clear. Neck supple bruits. Chest reveals a few rhonchi at the left base otherwise clear. Heart normal rate rhythm no murmurs. Abdomen soft nontender no masses. Extremities no clubbing cyanosis or edema. Calves nontender. Results - Labs CBC & BMP: 11/04/16 06:16 11/05/16 05:22 Lab Results: I have reviewed the past 24 hour labs Assessment and Plan (1) Hypothyroidism Status: Chronic Assessment and plan: Patient's Synthroid was increased to dose of 0.075 mg daily last admission. Will check TSH. 11/02/2016 TSH is pending. 11/05/2016 TSH is 33. Probably needs a little more Synthroid. Free T4 is 1.06, in the low range of normal. 11/06/2016 would need another TSH in 4-6 weeks. Current Visit: No (2) COPD with exacerbation Status: Acute Assessment and plan: Oxygen saturation looks okay. Continue with low flow nasal oxygen. She requires it long-term. She has chronic respiratory failure with hypoxemia with an acute exacerbation. Empiric antibiotics. 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 11/02/2016 she is really not having any wheezing at present. Reduce steroids. 11/05/2016 no bronchospasm. Keep steroids to a minimum with her bipolar disorder. 11/06/2016 no active bronchospasm. Probably can stop prednisone. 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 Prednisone has been stopped. Current Visit: No (3) Acute on chronic respiratory failure Status: Acute Assessment and plan: Continuing with nasal oxygen for chronic hypoxemic respiratory failure with acute exacerbation 11/02/16 continuing low flow nasal oxygen. 11/05/2016 continuing to require low flow nasal oxygen. 11/06/2016 continuing with low flow nasal oxygen. 11/07/2016 O2 sats acceptable with low flow nasal oxygen. Current Visit: No (4) Bipolar disorder Status: Chronic Assessment and plan: She is on Keppra. Need to resume her Invega if we can get it. If not may want to use Zyprexa or get psychiatric consult. 11/02/16 she is not on any antipsychotic medications. May want to have psychiatry to see. I would consider putting her on Zyprexa 20 mg daily until her home medication (Invega) can be resumed. 11/05/2016 turns out her medication is a long-acting injection. We do not need to make any changes on images find out when the next dose is due of the Invega. Current Visit: No (5) Pneumonia Status: Acute Assessment and plan: Left basilar pneumonia. Has a history of thick secretions in the past requiring bronchoscopy. Will add mucolytics. 11/02/16 left basilar infiltrate looks about the same. No bronchospasm. Continue IV antibiotics and bronchodilators. 11/05/2016 left basilar pneumonia looks a little less dense. Responding well to current antibiotics. Probably needs a couple more days. Cultures negative thus far. Community-acquired pneumonia in a patient with underlying COPD and thus likely to have a gram-negative. 11/06/16 could go to oral Levaquin or Omnicef in another day or so. 11/07/2016 has left basilar pneumonia. Again could go to oral antibiotics and go to swing bed. Current Visit: Yes Specialty Discharge - Follow Up or Referrals
[2016-11-07] MEDS: FAMOTIDINE 20 MG TABLET PO SCH (10:07)
[2016-11-07] MEDS: MEROPENEM 1,000 MG in SODIUM CHLORIDE 0.9% 100 ML IV SCH ×2 (10:07→20:27)
[2016-11-07] MEDS: DIGOXIN 0.125 MG TABLET PO SCH (10:08)
[2016-11-07] MEDS: DIVALPROEX 250 MG TABLET PO SCH ×2 (10:08→20:27)
[2016-11-07] MEDS: PANTOPRAZOLE 40 MG TABLET PO SCH (10:09)
[2016-11-07] MEDS: ROFLUMILAST 500 MCG TABLET PO SCH (10:09)
[2016-11-07] MEDS: amLODIPine 5 MG TABLET PO SCH (10:09)
[2016-11-07] MEDS: MONTELUKAST 10 MG TABLET PO SCH (10:09)
[2016-11-07] MEDS: ZINC OXIDE 16% PASTE 57 GM TUBE TOP SCH ×2 (10:11→20:33)
[2016-11-07] MEDS: ENOXAPARIN 40 MG/0.4 ML SYRINGE SUBCUT SCH (18:29)
[2016-11-07] MEDS: LEVOFLOXACIN INJ 750 MG in PREMIX 1 EACH IV SCH (18:30)
[2016-11-07] MEDS: OLANZapine 5 MG TABLET PO SCH (20:27)
[2016-11-08] MEDS: ALBUTEROL/IPRATROPIUM 3 ML NEB RESP TX SCH ×5 (00:19→15:17)
[2016-11-08] MEDS: LEVOTHYROXINE 100 MCG TABLET PO SCH (06:10)
--- NOTE | 2016-11-08 08:25 | Pulmonology Progress Note ---
Pulmonary - PN: Subj Interval history: 71-year-old white female with bipolar disorder that has a left lower lobe pneumonia. She is not running any fever. She sounds a little better today. She is somewhat confused. She is not getting her long-acting antipsychotic medications as yet. If she cannot get the Invega then we should go with Zyprexa 20 mg daily until it comes in. Will defer to primary service on this 1. May want to get a psychiatric consult. 11/05/2016 turns out her Invega was a long-acting injection and she does not need anymore at present. She is more alert and more animated. Chest x-ray show some improvement at the left base with aeration. Probably needs a couple more days of IV antibiotics. She is generally weak and was pretty in active at home. She has a daughter that helps look after her. May want to look into a swing bed or at least home health care. 11/06/2016 patient is looking better. Starting to do physical therapy. Agree with plans for swing bed. Cultures have been negative. Probably could go to oral antibiotics in the next day or so 11/07/2016 patient is feeling better and seems calm and does not appear dyspneic. Patient does need physical therapy and plans are for her to go to a swing bed. 11/08/2016 again is improved. Plans are for swing bed. Could go to oral Levaquin from my standpoint. Exam (Progress Note) - Constitutional Vitals: Period Temp Pulse Resp BP Sys/Martini Pulse Ox Last 24 Hr 96.5 F-98.9 F 45-104 16-20 121-131/66-89 93-99 Exam: Patient is responsive. She seems more oriented and more animated. Vital signs normal. Pupils react to light. Throat is clear. Neck supple bruits. Chest reveals a few rhonchi at the left base otherwise clear. Heart normal rate rhythm no murmurs. Abdomen soft nontender no masses. Extremities no clubbing cyanosis or edema. Calves nontender. Results - Labs CBC & BMP: 11/04/16 06:16 11/05/16 05:22 Lab Results: I have reviewed the past 24 hour labs Assessment and Plan (1) Hypothyroidism Status: Chronic Assessment and plan: Patient's Synthroid was increased to dose of 0.075 mg daily last admission. Will check TSH. 11/02/2016 TSH is pending. 11/05/2016 TSH is 33. Probably needs a little more Synthroid. Free T4 is 1.06, in the low range of normal. 11/06/2016 would need another TSH in 4-6 weeks. 11/08/2016 again should recheck TSH in 4-6 weeks Current Visit: No (2) COPD with exacerbation Status: Acute Assessment and plan: Oxygen saturation looks okay. Continue with low flow nasal oxygen. She requires it long-term. She has chronic respiratory failure with hypoxemia with an acute exacerbation. Empiric antibiotics. 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 11/02/2016 she is really not having any wheezing at present. Reduce steroids. 11/05/2016 no bronchospasm. Keep steroids to a minimum with her bipolar disorder. 11/06/2016 no active bronchospasm. Probably can stop prednisone. 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 Prednisone has been stopped. 11/08/2016 no active bronchospasm. Should be ready for swing bed and oral antibiotics. Current Visit: No (3) Acute on chronic respiratory failure Status: Acute Assessment and plan: Continuing with nasal oxygen for chronic hypoxemic respiratory failure with acute exacerbation 11/02/16 continuing low flow nasal oxygen. 11/05/2016 continuing to require low flow nasal oxygen. 11/06/2016 continuing with low flow nasal oxygen. 11/07/2016 O2 sats acceptable with low flow nasal oxygen. Current Visit: No (4) Bipolar disorder Status: Chronic Assessment and plan: She is on Keppra. Need to resume her Invega if we can get it. If not may want to use Zyprexa or get psychiatric consult. 11/02/16 she is not on any antipsychotic medications. May want to have psychiatry to see. I would consider putting her on Zyprexa 20 mg daily until her home medication (Invega) can be resumed. 11/05/2016 turns out her medication is a long-acting injection. We do not need to make any changes on images find out when the next dose is due of the Invega. Current Visit: No (5) Pneumonia Status: Acute Assessment and plan: Left basilar pneumonia. Has a history of thick secretions in the past requiring bronchoscopy. Will add mucolytics. 11/02/16 left basilar infiltrate looks about the same. No bronchospasm. Continue IV antibiotics and bronchodilators. 11/05/2016 left basilar pneumonia looks a little less dense. Responding well to current antibiotics. Probably needs a couple more days. Cultures negative thus far. Community-acquired pneumonia in a patient with underlying COPD and thus likely to have a gram-negative. 11/06/16 could go to oral Levaquin or Omnicef in another day or so. 11/07/2016 has left basilar pneumonia. Again could go to oral antibiotics and go to swing bed. 11/08/2016 left ibasilar pneumonia. Would get one more x-ray in 4-6 weeks. Current Visit: Yes Specialty Discharge - Follow Up or Referrals
[2016-11-08] MEDS: DIVALPROEX 250 MG TABLET PO SCH (09:24)
[2016-11-08] MEDS: MEROPENEM 1,000 MG in SODIUM CHLORIDE 0.9% 100 ML IV SCH (09:24)
[2016-11-08] MEDS: OLANZapine 5 MG TABLET PO SCH (09:24)
[2016-11-08] MEDS: PANTOPRAZOLE 40 MG TABLET PO SCH (09:25)
[2016-11-08] MEDS: DIGOXIN 0.125 MG TABLET PO SCH (09:25)
[2016-11-08] MEDS: MONTELUKAST 10 MG TABLET PO SCH (09:25)
[2016-11-08] MEDS: FAMOTIDINE 20 MG TABLET PO SCH (09:25)
[2016-11-08] MEDS: ROFLUMILAST 500 MCG TABLET PO SCH (09:25)
[2016-11-08] MEDS: amLODIPine 5 MG TABLET PO SCH (09:26)
[2016-11-08] MEDS: ZINC OXIDE 16% PASTE 57 GM TUBE TOP SCH (09:30)
--- NOTE | 2016-11-08 09:38 | Discharge Summary ---
Hospital Course - Hospital Course Hospital Course: 71-year-old female with diagnosed bipolar disorder chronic hypothyroidism had presented with a left lower lobe infiltrate and exacerbation of COPD. She was treated for pneumonia. She remained afebrile during the hospital stay. She was seen by pulmonary who adjusted her antibiotic therapy. She has not felt to be able to care for self at this time and arrangements have been made for her to be transferred to a swing bed completing a course of Levaquin orally. Diagnosis - Discharge Diagnosis (1) COPD (chronic obstructive pulmonary disease) Status: Chronic (2) Bipolar disorder Status: Chronic Specialty Discharge - Follow Up or Referrals Discharge Plan - Discharge Data Disposition: Swing Bed, Hos Based, [facility] Condition at Discharge: Stable Discharge Diet: diabetic diet Activity: as per physical therapy - Discharge Medications New Acetaminophen Tab [Tylenol Tab] 650 mg PO Q4H PRN tablet PRN Reason: fever, headache/body aches Albuterol Neb [Proventil Neb] 2.5 mg RESP TX RT Q4H PRN PRN Reason: Shortness Of Breath/Wheezing Albuterol/Ipratropium Neb [Duoneb] 3 ml RESP TX RT Q4H Digoxin Tab [Lanoxin Tab] 0.125 mg PO QAM tablet Divalproex [Depakote] 500 mg PO BID tablet Famotidine Tab [Pepcid Tab] 20 mg PO DAILY tablet Magnesium Hydroxide Susp [Milk of Magnesia] 30 ml PO BID PRN PRN Reason: Constipation Montelukast Tab [Singulair Tab] 10 mg PO QAM tablet OLANZapine TAB [ZyPREXA Tab] 10 mg PO DAILY tablet Roflumilast [Daliresp] 500 mcg PO QAM tablet amLODIPine [Norvasc] 5 mg PO QAM tablet Levothyroxine Tab [Synthroid Tab] 100 mcg PO DAILY@0700 tablet Continue Paliperidone Palmitate [Invega Sustenna] 156 mg IM Q28D Discontinued Aclidinium [place] [Tudorza Pressair] 1 puff INH BID Levothyroxine Tab [Synthroid Tab] 75 mcg PO 0700 tablet amLODIPine [Norvasc] 5 mg PO QAM Roflumilast [Daliresp] 500 mcg PO QAM Montelukast Sodium 10 mg PO QAM Digoxin Tab [Lanoxin Tab] 125 mcg PO QAM Acetaminophen 650 mg PO Q6HR PRN MDD 4 gm per 24h PRN Reason: Fever, Headache, Mild Pain Divalproex [Depakote] 500 mg PO BID Magnesium Hydroxide Susp [Milk of Magnesia] 30 ml PO BID PRN PRN Reason: Constipation Albuterol/Ipratropium Neb [Duoneb] 3 ml INH QID Albuterol/Ipratropium Neb [Duoneb] 3 ml INH Q6HR PRN PRN Reason: Shortness Of Breath/Wheezing raNITIdine HCl [Ranitidine HCl] 150 mg PO BID - Follow Up or Referral - Forms/Instructions Instructions: Chronic Obstructive Pulmonary Disease (GEN) Exam - Constitutional Vitals: Period Temp Pulse Resp BP Sys/Martini Pulse Ox Last 24 Hr 96.5 F-98.9 F 45-104 16-20 121-131/66-89 93-99 DS: Provider Date of admission: 10/31/16 18:26 Primary care physician: . No PCP Attending physician on admission: Shashank Prakash MD Consults: 10/31/16 18:26 Consult to Pulmonary Rehabilitation [CONS] Routine Reason for Pulmonary Rehabilitation: COPD 10/31/16 20:24 Consult to Physician [CONS] Routine Comment: Consulting Provider: Joe Sanchez Person Notified: aware Date Notified: 11/01/16 Time Notified: 09:08 10/31/16 20:40 Consult to Dietitian [CONS] Routine Reason for Dietitian: Other 11/01/16 08:24 Consult to Pulmonary Rehabilitation [CONS] Routine Reason for Pulmonary Rehabilitation: COPD 11/01/16 09:00 Consult to Occupational Therapy [CONS] Routine Reason for Occupational Therapy: Evaluate and Treat PT [Consult to Physical Therapy] [CONS] Routine Reason for Physical Therapy: Evaluate and Treat 11/07/16 15:54 Consult to Case Mgmt/Social Srvs [CONS] Routine Reason for Case Mgmt/Social Srvs: Other Consult Comment: pt ot x 20 days Discharging clinician: Germain Townsend MD Expected date of discharge: 11/08/16
[2016-11-08 12:14] VITALS: BP 125/67
== END 2016-11-08 16:15 | DRG 190 ==
LOC: N.ED 15:38 → N.EDINP 18:26 → SUATTDRO 18:26 → N.5E 19:11
PROVIDERS: ADMIT Internal Medicine; ATTEND Internal Medicine Cardiovascular Disease